=== PATIENT | female | born 1995 | race Asian ===

== ENCOUNTER 2020-05-26 19:37 | Emergency (ER) | payer OTHER, SELFPAY ==
--- NOTE | ~2020-05-26 | XR_ITS ---
EXAMINATION: XR ankle LT min 3V DATE: 05/26/2020 19:53 INDICATION: Left ankle pain TECHNIQUE: Anteroposterior, lateral, mortise, and additional oblique view of the ankle were obtained. COMPARISON: 10/09/2014 FINDINGS: There is no fracture, dislocation, or subluxation. The bones and joint spaces are normal. T here is lateral soft tissue swelling of ankle. IMPRESSION: 1. No acute osseous abnormality. Reviewed, dictated and finalized at location A. OR CONTROL ASSISTANT
[2020-05-26 19:45] VITALS: BP 107/67; PULSE 116; RESP 16; TEMP 37.2; O2SAT 99
--- NOTE | 2020-05-26 19:46 | ED.LOWEXIN ---
HPI - Extremity Injury (Lower) General Chief Complaint: Extremity Injury, Lower Stated Complaint: left ankle injury Source: patient and RN notes reviewed Mode of arrival: ambulatory Limitations: no limitations History of Present Illness HPI Narrative: This is a 24-year-old white female that presented to urgent care with pain to her left lateral ankle. According to patient she was walking upstairs and injured her left ankle .patient noted that her ankle inverted while walking upstairs yesterday. Patient did take take ibuprofen, icing site, and elevating site without any relief. Patient left ankle does look swollen with possible hematoma .there is no neurological deficiency, compartment syndrome with pain to the affected ankle, pulses palpable, full range of motion with pain. Patient is able to ambulate on her left lower extremity. Ankle x-ray did not indicate any break Type of Injury: inversion Related Data Home Medications Medication Instructions Recorded Confirmed sertraline 50 mg PO DAILY 06/18/19 05/26/20 Allergies Allergy/AdvReac Type Severity Reaction Status Date / Time No Known Allergies Allergy Verified 05/26/20 19:48 Review of Systems Review of Systems: All systems reviewed & are unremarkable except as noted in HPI and below (10 point system review) [facility] Past Medical History Medical History Alpha-thalassemia Anxiety Gastritis Psoriasis Surgical History Surgical History No history of previous surgery Family History Family History Father Cerebrovascular accident Depression Hypertension Other Family history of arthritis Family history of mental disorder Social History Social History Years smoked: 1 Smoking status: Former smoker Tobacco type: cigarettes Second hand tobacco smoke exposure: Yes Alcohol intake: current Drinks per week: 4 Substance use: never Gender identity (if verbalized by the patient): Female Spiritual care concerns: No Agree to blood products: Yes Exam Narrative: Exam Narrative: GENERAL: This is a well-nourished, well-developed patient, in no apparent distress. HEAD: normocephalic, atraumatic. EYES: PERRL. Sclera clear/white. Vision is grossly intact. EARS: External ears normal, auditory canals clear and without drainage, TMs normal without perforation. Hearing grossly intact. NOSE: External nose normal with no obvious nasal discharge, nares without redness, no rhinorrhea. THROAT: Mucous membranes moist, posterior pharynx clear. NECK: Neck supple, non-tender without lymphadenopathy, masses or thyromegaly. CARDIOVASCULAR: Regular rate and rhythm without murmurs, gallops, or rubs. RESPIRATORY: Clear to auscultation. Breath sounds equal bilaterally. No wheezes, rales, or rhonchi. GASTROINTESTINAL: Abdomen soft, non-tender, nondistended. Bowel sounds are active. No hepato-splenomegaly, or palpable masses. No guarding. SKIN: warm, intact with no suspicious lesions or rash, good texture and turgor. NEURO: awake, alert, and oriented to person, place and time. There were no obvious focal neurologic abnormalities. Steady gait EXTREMITIES: Left lower extremity with full range of motion's with pain with flexion of the. Patient does have a small hematoma to the outer ankle with swelling. Patient able to bear weight to the affected extremity BACK: Nontender without deformity or crepitance. No flank tenderness. Course Course Emergency Course: Ankle x-ray did not indicate a fracture Vital Signs Vital signs: Vital Signs Temperature 98.9 F 05/26/20 19:45 Pulse Rate 116 H 05/26/20 19:45 Respiratory Rate 16 05/26/20 19:45 Blood Pressure 107/67 05/26/20 19:45 Pulse Oximetry 99 05/26/20 19:45 Temperature 98.9 F
== END 2020-05-26 20:08 | disposition home or self-care (01) ==
PROVIDERS: Emergency Provider Nurse Practitioner; PCP Family Medicine
DX: S93.402A Sprain of unspecified ligament of left ankle, initial encounter (principal); S96.912A Strain of unspecified muscle and tendon at ankle and foot level, left foot, initial encounter; X50.9XXA Other and unspecified overexertion or strenuous movements or postures, initial encounter; Z87.891 Personal history of nicotine dependence; F41.9 Anxiety disorder, unspecified
CPT/HCPCS: 73610; 99213; G0463

== ENCOUNTER 2021-02-04 10:47 | Emergency (ER) | payer OTHER, SELFPAY ==
--- NOTE | ~2021-02-04 | CT_ITS ---
EXAMINATION: CT abdomen pelvis w con DATE: 02/04/2021 17:03 INDICATION: Nausea and vomiting. TECHNIQUE: Computed tomography (CT) of the abdomen and pelvis was performed with 100 mL Omnipaque 350 intravenous contrast. Automated exposure control and iterative reconstruction technique were employe d. The dose-length product was 162.34 mGy-cm. COMPARISON: None. FINDINGS: The visualized portions of the lung bases are clear without pneumonia or pleural effusion. The heart size is normal. No pericardial effusion. There is a small sliding hiatal hernia. The liver, gallbladder, spleen, pancreas, adrenal glands, and kidneys are normal. There are no dilated loops of bowel. The appendix is not visualized. There are no pathologically enlarged lymph nodes. There is no free intraperitoneal fluid. There is physiologic fluid in the pelvis. There is thoracolumbar levosco liosis. IMPRESSION: 1. Small sliding hiatal hernia. Reviewed, dictated and finalized at location A.
[2021-02-04 11:16] VITALS: BP 110/77; PULSE 89; RESP 18; TEMP 37.1; O2SAT 99
[2021-02-04] MEDS: LACTATED RINGERS 1,000 ML 999 ML IV CONT (12:24)
[2021-02-04] MEDS: PROMETHAZINE HCL 25 MG/ML AMPUL 12.5 MG IV PUSH ×2 (12:25→17:08)
[2021-02-04] MEDS: SODIUM CHLORIDE 0.9% IV 50 ML 100 ML (12:25)
--- NOTE | 2021-02-04 12:29 | ED.NAVMDI ---
HPI - Nausea/Vomiting/Diarrhea General Chief complaint: Nausea/Vomiting/Diarrhea Stated complaint: vomitting Time Seen by Provider: 02/04/21 11:00 Source: patient, EMS and RN notes reviewed Mode of arrival: ambulatory Limitations: no limitations History of Present Illness HPI Narrative: This is 25 year old female who presents for evaluation of nausea and vomiting. Patient states yesterday evening she developed nausea and vomiting while eating at a buffet. She reports she ate very little earlier that day so she went to a buffet to eat. She developed vomiting while at restaurant. She has continued to have nausea and dry heave throughout the night and today. She suffered something similar over 1 year ago and it was thought to be due to excessive alcohol use. She reports she only drank 1 alcoholic drink last night. She denies abdominal pain, fever or diarrhea. She denies lightheadedness or dizziness. Her LMP was 3 weeks ago. Related Data Allergies Allergy/AdvReac Type Severity Reaction Status Date / Time No Known Allergies Allergy Verified 02/04/21 11:15 Review of Systems Review of Systems: All systems reviewed & are unremarkable except as noted in HPI and below PMFSH Past Medical History Medical History (Updated 02/04/21 @ 18:41 by Ana Lilia Caicedo MD) Alpha-thalassemia Anxiety Gastritis Psoriasis Surgical History Surgical History No history of previous surgery Family History Family History Father Cerebrovascular accident Depression Hypertension Other Family history of arthritis Family history of mental disorder Social History Social History Years smoked: 1 Smoking status: Former smoker Tobacco type: cigarettes Second hand tobacco smoke exposure: Yes Alcohol intake: current Drinks per week: 4 Substance use: never Gender identity (if verbalized by the patient): Female Spiritual care concerns: No Agree to blood products: Yes Exam Const: General: no acute distress and alert Nutritional Appearance: thin Orientation/consciousness: patient oriented x3 Eyes: EOM: EOMs intact bilaterally Resp: Effort & Inspection: normal respiratory effort and no retractions Auscultation: clear to auscultation bilaterally Cardio: Rate: regular rate Rhythm: regular rhythm Heart sounds: no murmurs GI: GI Palp: Yes Soft to palpation, No Tenderness to palpation present (GI) and No Guarding due to palpation present (GI) Auscultation: normal bowel sounds Back/Spine/Pelvis: Back: no CVA tenderness Skin: General skin exam: normal color Rashes: no rashes Neuro: General: patient oriented x3 and moves all extremities Course Reevaluation(s) Reevaluation #1: PAtient has been resting. She has been given 2 L fluid. She feels better and she was able to eat crackers and drink water. Date: 02/04/21 Time: 18:39 Vital Signs Vital signs: Vital Signs Temperature 98.8 F 02/04/21 11:16 Pulse Rate 89 02/04/21 11:16 Respiratory Rate 18 02/04/21 11:16 Blood Pressure 110/77 02/04/21 11:16 Pulse Oximetry 99 02/04/21 11:16 Temperature 98.8 F 02/04/21 11:16 Pulse Rate 102 H 02/04/21 18:31 Respiratory Rate 16 02/04/21 18:31 Blood Pressure 118/74 02/04/21 18:31 Pulse Oximetry 97 02/04/21 18:31 MDM - Nausea/Vomiting/Diarrhea Lab Data Attestation: I reviewed the patient's lab results. Result diagrams: 02/04/21 12:19 02/04/21 12:19 Labs: Lab Results 02/04/21 02/04/21 02/04/21 Range/Units 11:35 12:19 12:19 WBC 13.4 H (4.5-10.0) K/mm3 RBC 5.88 H (4.2-5.4) M/mm3 Hgb 12.1 (12.0-15.0) g/dL Hct 39.9 (37.0-47.0) % MCV 67.9 L (80-100) fl MCH 20.6 L (26-34) pg MCHC 30.3 L (32-36) g/dl RDW 15.4 H (11.5-14.5) % Plt Count
[2021-02-04 12:38] LABS: Alanine Aminotransferase 21 U/L (4-35); Albumin Level 4.9 g/dL (3.5-5.1); Alkaline Phosphatase 66 U/L (38-126); Anion Gap 15 mmol/L (8-16); Aspartate Amino Transferase 32 U/L (14-36); Bilirubin,Total 0.6 mg/dL (0.2-1.3); Blood Urea Nitrogen 11 mg/dL (7-17); Calcium 9.6 mg/dL (8.4-10.2); Carbon Dioxide 23 mmol/L (22-30); Chloride 104 mmol/L (98-107); Estimated CRCL calculation 104 ml/min; Estimated Glomerular Filt Rate > 60; Glucose 118 mg/dL (65-110); Lipase 49 U/L (23-300); Potassium 3.9 mmol/L (3.4-5.0); Sodium 142 mmol/L (137-145)
[2021-02-04 12:44] LABS: Add Urine Microscopic? YES; Appearance Urine Cloudy (Clear); Bilirubin Urine Negative (Negative); Blood Urine Negative (Negative); Color Urine Amber (Yellow); Glucose Urine UA Negative (Negative); Ketones Urine 2+ mg/dL (Negative); Leukocyte Esterase Ur Negative LEU/UL (Negative); Mucus Urine Few /lpf; Nitrate Urine Negative (Negative); Protein Urine 2+ mg/dL (Negative); RBC Urine 0-2 /hpf (0-2); Specific Grav Ur 1.028 (1.001-1.035); Squamous Epithelial Cell Urine Many /hpf (Few); Urobilinogen Urine Negative mg/dL (<2.0); WBC Urine 0-3 /hpf
[2021-02-04 12:44] LABS: Basophils Percent Auto 0.1 % (0.2-1.2); Hematocrit 39.9 % (37.0-47.0); Hemoglobin 12.1 g/dL (12.0-15.0); Immature Granulocyte Absolute 0.08 K/mm3 (0.00-0.031); Immature Granulocyte Percent A 0.6 % (0-0.5); Lymphocytes Absolute Auto 1.62 K/mm3 (0.9-3.2); Lymphocytes Percent Auto 12.1 % (18.3-44.2); Mean Corpuscular HGB Conc 30.3 g/dl (32-36); Mean Corpuscular Hemoglobin 20.6 pg (26-34); Mean Corpuscular Volume 67.9 fl (80-100); Monocytes Absolute Auto 0.3 K/mm3 (0.1-0.6); Monocytes Percent Auto 2.3 % (2.6-8.5); Neutrophils Absolute Auto 11.4 K/mm3 (1.3-6.7); Neutrophils Percent Auto 84.9 % (45.5-73.1); Platelet Count Result 296 k/mm3 (150-375); Red Blood Count 5.88 M/mm3 (4.2-5.4); Red Cell Distribution Width 15.4 % (11.5-14.5); White Blood Count 13.4 K/mm3 (4.5-10.0)
[2021-02-04 13:10] VITALS: BP 116/84; PULSE 88; RESP 17; O2SAT 98
[2021-02-04] MEDS: PROCHLORPERAZINE EDISYLATE 10 MG/2 ML VIAL IV PUSH (15:22)
[2021-02-04 15:30] VITALS: BP 117/83; PULSE 98; RESP 14; O2SAT 97
[2021-02-04 16:42] VITALS: BP 84/58; BP 87/54; PULSE 111; PULSE 98
[2021-02-04 16:43] VITALS: BP 83/67; PULSE 131
[2021-02-04] MEDS: PANTOPRAZOLE SODIUM IV 40 MG VIAL IV PUSH (17:07)
[2021-02-04] MEDS: SODIUM CHLORIDE 0.9% IV 1,000 ML 999 ML IV CONT (17:07)
[2021-02-04 18:31] VITALS: BP 118/74; PULSE 102; RESP 16; O2SAT 97
== END 2021-02-04 19:52 | disposition home or self-care (01) ==
PROVIDERS: Emergency Provider General Practice; PCP Family Medicine
DX: K21.9 Gastro-esophageal reflux disease without esophagitis (principal); Z87.891 Personal history of nicotine dependence
CPT/HCPCS: 36415; 74177; 80053; 81001; 81025; 83690; 85025; 96361; 96374; 96375; 99284; C9113; J0780; J2550; J7030; J7120; Q9967

== ENCOUNTER 2021-09-28 10:46 | Outpatient (CLI) | payer OTHER, SELFPAY ==
--- NOTE | ~2021-09-28 | US_ITS ---
EXAMINATION: US thyroid EXAM DATE: 09/28/2021 11:11 INDICATION: Pain in throat. TECHNIQUE: Multiple grayscale and Doppler images of the thyroid were obtained (by a technologist who performed the scan) and subsequently reviewed. Individual nodules and recommendations may be reporte d in accordance with TI-RADS system as designated by the 2017 ACR White Paper TI-RADS committee. The re is no prior study for comparison. FINDINGS: The right thyroid lobe measures 4.5 x 1.4 x 1.6 cm, the left measuring 4.2 x 1.3 x 1.7 cm. Dimensions are within normal size limits. There is homogeneous thyroid echogenicity. No focal thyroid nodule id entified. IMPRESSION: 1. Unremarkable thyroid ultrasound exam. Reviewed, dictated and finalized at location B.
== END 2021-09-28 10:47 | disposition home or self-care (01) ==
LOC: ANHIMG 10:47
PROVIDERS: PCP Family Medicine; Visit Provider Physician Assistant
DX: R07.0 Pain in throat (principal)
CPT/HCPCS: 76536

== ENCOUNTER 2022-03-23 19:59 | Outpatient (CLI) | payer OTHER, SELFPAY ==
--- NOTE | ~2022-03-23 | US_ITS ---
EXAMINATION: US OB <=14 wk fetus w TV DATE: 03/24/2022 07:52 INDICATION: 8 weeks . Gestational dating. TECHNIQUE: Real-time transabdominal and transvaginal obstetric ultrasound. FINDINGS: No prior studies for comparison. The uterus measures 8.8 x 4.5 x 4.7 cm. There is an intrauterine gestational sac, with pole misha ntified. The crown rump length measures 0.57 cm, which correlates with a estimated gestational age o f 6 weeks 2 days. There is a small subchorionic hemorrhage measuring 9 mm maximum dimension. he art tones are identified measuring 122 BPM. There is a right corpus luteal cyst measuring 2.4 cm. The left ovary is unremarkable. IMPRESSION: 1. SL IUP with an EGA of 6 weeks, 2 days (EDC by current ultrasound of 11/15/2022). 2: Small subchorionic hemorrhage. 3: Right ovarian corpus luteal cyst measuring 2.4 cm. Reviewed, dictated and finalized at location A. IMPRESSION: 1. SL IUP with an EGA of 6 weeks, 2 days (EDC by current ultrasound of 11/16/19). 2: Small subchorionic hemorrhage. 3: Right ovarian corpus luteal cyst measuring 2.4 cm.
[2022-03-23 20:04] VITALS: BP 134/77; PULSE 119; RESP 16; TEMP 37; O2SAT 100
--- NOTE | 2022-03-23 20:11 | ED.NAVMDI ---
HPI - Nausea/Vomiting/Diarrhea General Chief complaint: Nausea/Vomiting/Diarrhea Stated complaint: motion sickness, vomiting since last Saturday, 8 wks Time Seen by Provider: 03/23/22 20:08 Source: patient Mode of arrival: ambulatory Limitations: no limitations History of Present Illness HPI Narrative: Patient is a 26-year-old female who presents the ED with report of nausea and vomiting. Patient is G1, P0 and currently approximately 8 weeks gestation. She states she just found out last week she was . She is scheduled to see Dr. Argueta on the . She developed nausea and vomiting after riding in the car and feeling motion sickness on Saturday. She has since had persistent nausea and vomiting. It has gotten to the point where she is unable to keep anything down, which prompted her presentation. Patient did have 1 episode of diarrhea yesterday. Denies any blood in vomit or stool. Denies vaginal bleeding. Denies abdominal pain. Denies fevers, urinary symptoms. Related Data Home Medications Medication Instructions Recorded Confirmed famotidine 20 mg tablet 20 mg PO BID 10/26/21 10/26/21 propranolol 10 mg tablet 10 mg PO Q12H 10/26/21 10/26/21 quetiapine 50 mg tablet 50 mg PO BID 10/26/21 10/26/21 sertraline 100 mg tablet 100 mg PO DAILY 10/26/21 10/26/21 Allergies Allergy/AdvReac Type Severity Reaction Status Date / Time No Known Allergies Allergy Verified 10/26/21 13:06 Review of Systems Review of Systems: CONSTITUTIONAL: Denies fever, chills, or sweats. CARDIOVASCULAR: Denies chest pain. RESPIRATORY: Denies dyspnea. GASTROINTESTINAL: Reports N/V/D. Denies abdominal pain, rectal bleeding, hematemesis. GENITOURINARY: Denies vaginal bleeding, dysuria or hematuria. MUSCULOSKELETAL: Denies back pain. All systems reviewed & are unremarkable except as noted in HPI and below PMFSH Past Medical History Medical History (Updated 03/24/22 @ 00:19 by Keisha Sanchez PA-C) Alpha-thalassemia Anxiety Gastritis Psoriasis Surgical History Surgical History No history of previous surgery Family History Family History Father Cerebrovascular accident Depression Hypertension Other Family history of arthritis Family history of mental disorder Social History Social History Years smoked: 1 Smoking status: Current some day smoker Tobacco type: cigarettes Second hand tobacco smoke exposure: Yes Alcohol intake: current Drinks per week: 4 Substance use: never Gender identity (if verbalized by the patient): Female Spiritual care concerns: No Agree to blood products: Yes Exam Narrative: GENERAL: Well appearing, thin, non-toxic, in no acute distress. HEAD: Normocephalic, atraumatic. ENT: Pharynx clear, MM slightly dry. NECK: Supple. No adenopathy, no masses. RESPIRATORY: Airway patent, respirations nonlabored. Clear to auscultation bilaterally, no rales, rhonchi, wheezing. CARDIOVASCULAR: Tachycardic with regular rhythm without murmurs, rubs, or gallops. Peripheral pulses 2+ and equal bilaterally. ABDOMINAL: Soft, no tenderness to palpation throughout abdomen, nondistended, no hepatosplenomegaly. Normoactive BS. MUSCULOSKELETAL: Moves all extremities. Strength/ROM intact without gross deformities. SKIN: Warm, dry, normal color. No rashes. NEURO: A&O X3. Speech clear. Cranial nerves II-XII grossly intact. Steady gait. No ataxic movements. PSYCHIATRIC: Appropriate mood and affect. Normal interaction. Course Consultations Consultation #1: Discussed case with Dr. Argueta OBGYN, will obtain obstetric US tomorrow am. Patient to follow in office. Date: 03/24/22 Time: 00:34 Vital Signs Vital signs: Vital Signs Temperature 98.6 F 03/23/22 20:04 Pulse Rate 119 H 03/23/22 20:04 Respiratory Rate 16
[2022-03-23] MEDS: SODIUM CHLORIDE 0.9% IV 1,000 ML 999 ML IV CONT (22:06)
[2022-03-23] MEDS: ONDANSETRON INJ 4 MG/2 ML VIAL IV PUSH (22:08)
[2022-03-23 22:10] LABS: Basophils Percent Auto 0.3 % (0.2-1.2); Eosinophils Absolute Auto 0.2 K/mm3 (0-0.3); Hematocrit 36.5 % (37.0-47.0); Hemoglobin 11.4 g/dL (12.0-15.0); Immature Granulocyte Absolute 0.07 K/mm3 (0.00-0.031); Immature Granulocyte Percent A 0.4 % (0-0.5); Lymphocytes Absolute Auto 2.37 K/mm3 (0.9-3.2); Lymphocytes Percent Auto 15.2 % (18.3-44.2); Mean Corpuscular HGB Conc 31.2 g/dl (32-36); Mean Corpuscular Hemoglobin 20.9 pg (26-34); Mean Platelet Volume 9.7 fl (7.4-10.4); Monocytes Absolute Auto 1.2 K/mm3 (0.1-0.6); Monocytes Percent Auto 7.6 % (2.6-8.5); Neutrophils Absolute Auto 11.8 K/mm3 (1.3-6.7); Neutrophils Percent Auto 75.5 % (45.5-73.1); Platelet Count Result 287 k/mm3 (150-375); Red Blood Count 5.45 M/mm3 (4.2-5.4); Red Cell Distribution Width 14.8 % (11.5-14.5); White Blood Count 15.6 K/mm3 (4.5-10.0)
[2022-03-23 22:16] LABS: Add Urine Microscopic? YES; Appearance Urine Cloudy (Clear); Bacteria Urine Trace /hpf; Bilirubin Urine Negative (Negative); Blood Urine Negative (Negative); Color Urine Yellow (Yellow); Glucose Urine UA Negative (Negative); Ketones Urine 1+ mg/dL (Negative); Leukocyte Esterase Ur Negative LEU/UL (Negative); Mucus Urine Heavy /lpf; Nitrate Urine Negative (Negative); Protein Urine Negative (Negative); Squamous Epithelial Cell Urine Many /hpf (Few); Urobilinogen Urine Negative mg/dL (<2.0); WBC Urine 0-3 /hpf
[2022-03-23 22:21] LABS: Alanine Aminotransferase 13 U/L (6-35); Alkaline Phosphatase 45 U/L (38-126); Anion Gap 7 mmol/L (8-16); Aspartate Amino Transferase 29 U/L (14-36); Bilirubin,Total 0.6 mg/dL (0.2-1.3); Blood Urea Nitrogen 7 mg/dL (7-17); Calcium 8.6 mg/dL (8.4-10.2); Carbon Dioxide 25 mmol/L (22-30); Chloride 103 mmol/L (98-107); Estimated CRCL calculation 115 ml/min; Estimated Glomerular Filt Rate > 60; Glucose 83 mg/dL (65-110); Lipase 33 U/L (23-300); Potassium 3.6 mmol/L (3.4-5.0); Sodium 135 mmol/L (137-145)
[2022-03-23 22:29] LABS: Hypochromasia 2+ (NORMAL); Microcytosis 1+ (NORMAL); Schistocytes None Seen (NORMAL)
[2022-03-23 23:07] LABS: Platelet Estimate Adequate (Adequate)
[2022-03-23] MEDS: PROMETHAZINE HCL 25 MG/ML AMPUL 12.5 MG IV PUSH (23:44)
[2022-03-23] MEDS: SODIUM CHLORIDE 0.9% IV 100 ML 500 ML (23:48)
[2022-03-24 01:15] VITALS: BP 100/68; PULSE 86; RESP 18; O2SAT 100
== END 2022-03-24 07:12 | disposition home or self-care (01) ==
LOC: ANHED 03-24 00:26 → ANHIMG 03-24 07:12
PROVIDERS: Emergency Provider Family Medicine; PCP Physician Assistant; Visit Provider Physician Assistant
DX: O46.91 Antepartum hemorrhage, unspecified, first trimester (principal); Z3A.01 Less than 8 weeks gestation of pregnancy; N83.201 Unspecified ovarian cyst, right side
CPT/HCPCS: 36415; 76801; 76817; 80053; 81001; 83690; 84702; 85025; J2405; J2550; J7030

== ENCOUNTER 2022-05-16 15:19 | Outpatient (CLI) | payer OTHER, SELFPAY ==
--- NOTE | ~2022-05-16 | US_ITS ---
EXAMINATION: US OB <= 14 weeks fetus DATE: 05/16/2022 16:32 INDICATION: Follow-up subchorionic hematoma TECHNIQUE: Real-time transabdominal obstetric ultrasound. FINDINGS: 03/24/2022 The uterus measures 9 x 7 x 9 mm. There is an intrauterine gestational sac, with pole identifie d. The crown rump length measures 7.44 cm. heart tones are identified measuring 156 BPM. No ev idence for subchorionic hemorrhage. IMPRESSION: 1. SL IUP with an EGA of 13 weeks, 6 days (EDC by current ultrasound of 11/15/2022), by initial ultra sound. 2: Interval resolution of subchorionic hemorrhage. Reviewed, dictated and finalized at location A. STANT FACILITY MANAGER IMPRESSION: 1. SL IUP with an EGA of 13 weeks, 6 days (EDC by current ultrasound of 023), by initial ultrasound. 2: Interval resolution of subchorionic hemorrhage.
== END 2022-05-16 15:20 | disposition home or self-care (01) ==
PROVIDERS: PCP Physician Assistant; Visit Provider Obstetrics & Gynecology Gynecology
DX: O36.8910 Maternal care for other specified fetal problems, first trimester, not applicable or unspecified (principal); Z3A.13 13 weeks gestation of pregnancy
CPT/HCPCS: 76801

== ENCOUNTER 2022-06-19 17:33 | Outpatient (CLI) | payer OTHER, SELFPAY ==
--- NOTE | ~2022-06-19 | US_ITS ---
EXAMINATION: US OB /maternal detail DATE: 06/19/2022 18:40 INDICATION: anatomic survey. TECHNIQUE: Real-time ultrasound of the pelvis was performed. COMPARISON: Ultrasound 05/16/2022, 03/24/2022 FINDINGS: There is a single living fetus in breech presentation. The placenta is anterior, 2.2 cm from the cer vix. heart rate is 157 beats per minute (bpm). The amniotic fluid volume is subjectively normal . The cervical length is normal on transabdominal images. The following biometric data were obtained: Biparietal diameter (BPD): 4.2 cm; head circumference (HC): 15.9 cm; abdominal circumference (AC): 13 .9 cm; femur length (FL): 2.9 cm. These measurements are concordant. Estimated weight is 269 g +/- 40 g, which correlates with the 64th percentile when 11/15/22 is us ed as estimated date of delivery. As single measurements, these parameters are each equal to the following estimated gestational ages: BPD: 18 weeks 4 days. HC: 18 weeks 5 days. AC: 19 weeks 2 days. FL: 18 weeks 5 days. estimated gestational age based solely on measurements from this exam is 18 weeks 6 days +/- 1 weeks 2 days. The cerebral ventricles, cerebellum, cisterna magna, nuchal fold, lip, and visualized portions of the spine are normal. The heart is normal. The extremities, diaphragm, stomach, kidneys, and bladder are normal. There are two umbilical arteries to yield a 3-vessel cord. The cord insertion is normal. IMPRESSION: 1. Single living fetus in breech presentation. 2. Estimated weight is 269 g +/- 40 g, which correlates with the 64th percentile when 11/15/22 i s used as estimated date of delivery. This date was set by ultrasound on 03/24/2022. 3. Normal anatomic survey. Reviewed, dictated and finalized at location A. EL CASHIER IMPRESSION: 1. Single living fetus in breech presentation. 2. Estimated weight is 269 g +/- 40 g, which correlates with the 64th pe rcentile when 11/15/22 is used as estimated date of delivery. This date was set b y ultrasound on 03/24/2022. 3. Normal anatomic survey.
== END 2022-06-19 17:34 | disposition home or self-care (01) ==
PROVIDERS: PCP Physician Assistant; Visit Provider Advanced Practice Midwife
DX: Z36.9 Encounter for antenatal screening, unspecified (principal); Z3A.18 18 weeks gestation of pregnancy
CPT/HCPCS: 76805

== ENCOUNTER 2022-08-09 13:09 | Outpatient (CLI) | payer OTHER, SELFPAY ==
--- NOTE | ~2022-08-09 | US_ITS ---
EXAMINATION: US OB follow up DATE: 08/09/2022 13:57 INDICATION: Low-lying placenta without hemorrhage during second trimester . TECHNIQUE: Real-time ultrasound of the pelvis was performed. The interpreting radiologist was not pre sent for the study. COMPARISON: 06/19/2022 FINDINGS: There is a single living fetus in vertex presentation. The placenta is anterior and not low-lying wi th caudal margin 9.3 cm from the internal cervical os. heart rate is 153 beats per minute (bpm) . The amniotic fluid index is 16.8 cm, which is normal (5th%-95%: 9.7-22.3 cm at 26 weeks estimated gestational age). The following biometric data were obtained: BPD: 6.6 cm -> 26 weeks 5 days Head circumference: 24.8 cm -> 26 weeks 6 days Abdominal circumference: 21.6 cm -> 26 weeks 1 days Femur length: 4.9 cm -> 26 weeks 4 days These measurements are concordant. Head circumference to abdominal circumference ratio: 1.15 (normal range 1.05-1.22). Estimated weight: 931 g (+/-) 140 g or 2 lbs. 1 oz. (+/-) 5 oz. IMPRESSION: 1. Single living fetus in vertex presentation with heart rate of 153 bpm. 2. Normal anterior placenta with caudal margin 9.3 cm from the internal cervical os. 3. amniotic fluid index of 16.8 cm. 4. Estimated weight is 56th percentile by Hadlock criteria when is used as the estimated date o f delivery (VINICIO). Please correlate with clinical information or earlier ultrasounds for most accurate VINICIO. Reviewed, dictated and finalized at location A. RNATIONAL LOGISTICS COORDINATOR IMPRESSION: 1. Single living fetus in vertex presentation with heart rate of 153 bpm. 2. Normal anterior placenta with caudal margin 9.3 cm from the internal cervica l os. 3. amniotic fluid index of 16.8 cm. 4. Estimated weight is 56th percentile by Hadlock criteria when is used a s the estimated date of delivery (VINICIO). Please correlate with clinical informat ion or earlier ultrasounds for most accurate VINICIO.
== END 2022-08-09 13:10 | disposition home or self-care (01) ==
LOC: ANHIMG 13:11
PROVIDERS: PCP Physician Assistant; Visit Provider Advanced Practice Midwife
DX: O44.42 Low lying placenta NOS or without hemorrhage, second trimester (principal); Z3A.00 Weeks of gestation of pregnancy not specified
CPT/HCPCS: 76816

== ENCOUNTER 2022-10-22 15:28 | Outpatient (CLI) | payer BC, OTHER, SELFPAY ==
[2022-10-22] VITALS (8 sets, daily range): BP systolic 109–131; BP diastolic 66–84; PULSE 77–98
[2022-10-22 16:20] LABS: Basophils Percent Auto 0.3 % (0.2-1.2); Eosinophils Absolute Auto 0.2 K/mm3 (0-0.3); Eosinophils Percent Auto 1.8 % (0-4.4); Hematocrit 33.1 % (37.0-47.0); Hemoglobin 10.1 g/dL (12.0-15.0); Immature Granulocyte Absolute 0.06 K/mm3 (0.00-0.031); Immature Granulocyte Percent A 0.5 % (0-0.5); Immature Platelet Fraction Pct 10.1 % (0.9-11.2); Lymphocytes Absolute Auto 1.97 K/mm3 (0.9-3.2); Lymphocytes Percent Auto 17.4 % (18.3-44.2); Mean Corpuscular HGB Conc 30.5 g/dl (32-36); Mean Corpuscular Hemoglobin 20.7 pg (26-34); Mean Platelet Volume 11.7 fl (7.4-10.4); Monocytes Absolute Auto 0.9 K/mm3 (0.1-0.6); Monocytes Percent Auto 7.7 % (2.6-8.5); Neutrophils Absolute Auto 8.2 K/mm3 (1.3-6.7); Neutrophils Percent Auto 72.3 % (45.5-73.1); Platelet Count Result 233 k/mm3 (150-375); Red Blood Count 4.87 M/mm3 (4.2-5.4); Red Cell Distribution Width 17.2 % (11.5-14.5); White Blood Count 11.3 K/mm3 (4.5-10.0)
[2022-10-22 16:25] LABS: Appearance Urine Cloudy (Clear); Bacteria Urine 1+ /hpf; Bilirubin Urine Negative (Negative); Blood Urine Negative (Negative); Color Urine Yellow (Yellow); Glucose Urine UA Negative (Negative); Ketones Urine Negative (Negative); Leukocyte Esterase Ur Trace LEU/UL (NEGATIVE); Nitrate Urine Negative (Negative); Non Pathogenic Casts 0-2; Protein Urine Negative (Negative); RBC Urine 0-2 /hpf (0-2); Specific Grav Ur 1.013 (1.001-1.035); Squamous Epithelial Cell Urine Many /hpf (Few); pH Urine 7.5 (5.0-9.0)
[2022-10-22 16:29] LABS: Alanine Aminotransferase 17 U/L (6-35); Albumin Level 3.4 g/dL (3.5-5.1); Alkaline Phosphatase 178 U/L (38-126); Anion Gap 6 mmol/L (8-16); Aspartate Amino Transferase 25 U/L (14-36); Bilirubin,Total 0.6 mg/dL (0.2-1.3); Blood Urea Nitrogen 6 mg/dL (7-17); Calcium 8.7 mg/dL (8.4-10.2); Carbon Dioxide 23 mmol/L (22-30); Chloride 104 mmol/L (98-107); Estimated Glomerular Filt Rate > 60; Glucose 76 mg/dL (65-110); Potassium 3.7 mmol/L (3.4-5.0); Sodium 133 mmol/L (137-145); Uric Acid 4.2 mg/dL (2.5-7.5)
[2022-10-22 16:34] LABS: Add Urine Microscopic? YES
[2022-10-22 16:47] LABS: Platelet Estimate Adequate (Adequate)
[2022-10-22 16:48] LABS: Schistocytes None Seen (NORMAL)
[2022-10-22 16:50] LABS: Hypochromasia 1+ (NORMAL)
[2022-10-22 16:51] LABS: Anisocytosis 2+ (NORMAL)
[2022-10-22 16:56] LABS: Creatinine Urine 59.9 mg/dL; Total Protein Urine Random 10 mg/dL; Ur Ttl Prot Creatinine Ratio 0.17 mg/mg (0-0.20)
--- NOTE | 2022-10-22 17:10 | PC.NURSE ---
1530: Pt complained of swelling in hands and feet, with pain in her right breast that comes and goes, as well as a headache that has started today that is coming and going. Pt stated she felt great yesterday and was power-washing her house yesterday. Pt currently has a headache but does not feel any contractions or right sided pain at this time. 1545: RN examined pt, no swelling apparent on hand, feet, or legs. 1700: RN asked pt if she is feeling any contractions. Pt stated she is not feeling any contractions. 170: CNM Jeannine Olivo was contacted via cell phone. RN informed CNM of pt's complaints, RN's observation of pt, VS, FHT, lab results, and urine results. Orders to instruct patient to eat more iron rich food, and offer patient a Fioricet for her headache before she leaves. Orders to discharge patient home after Fioricet (if needed) with instructions to return to office for a prescription if needed.
[2022-10-22] MEDS: ACETAMINOPHEN/BUTALBITAL/CAFFEINE 325-50-40 MG TABLET (FIORICET) 1 TAB PO (17:26)
== END 2022-10-22 17:31 | disposition home or self-care (01) ==
LOC: ANHOBOP 15:42 → ANHOBPP 15:44
PROVIDERS: Advanced Practice Midwife; PCP Physician Assistant; Visit Provider Obstetrics & Gynecology Gynecology
DX: O13.9 Gestational [pregnancy-induced] hypertension without significant proteinuria, unspecified trimester (principal); Z3A.00 Weeks of gestation of pregnancy not specified
CPT/HCPCS: 36415; 59025; 80053; 81001; 82570; 84156; 84550; 85025; 85055; 87086; 99199; A9270

== ENCOUNTER 2022-11-07 16:57 | Inpatient (IN) | payer OTHER, SELFPAY ==
[2022-11-07] VITALS (9 sets, daily range): BP systolic 93–127; BP diastolic 65–79; PULSE 91–116; TEMP 37.1–37.4; O2SAT 99; BMI 25.7
--- NOTE | 2022-11-07 17:15 | PC.NURSE ---
Lady Olivo CNM here and talking with pt. WHEELER would like a Alpha Thalasemia DNA test added to demise order set. Called lab for them to tell me how to order and what tube to draw.
--- NOTE | 2022-11-07 18:03 | P.PNAN_ITS ---
Anes - Initial Pre Proc Eval Procedure: Labor epidural Date/Time: 11/07/22 18:03 Surgeon: Shaista Argueta MD Pre Op Diagnosis: Abdominal pain with contractions Pre Op Diagnosis: IUFD Patient Data Age: 26 Gender: F Height: Weight: Allergies Allergy/AdvReac Type Severity Reaction Status Date / Time adhesive tape Allergy Redness of Verified 10/17/22 12:54 Skin Home Medications Medication Instructions Recorded Confirmed Type famotidine 20 mg tablet 20 mg PO BID 10/26/21 10/26/21 History quetiapine 50 mg tablet 50 mg PO BID 10/26/21 10/26/21 History promethazine 12.5 mg tablet 12.5 mg PO Q6H PRN nausea and 03/24/22 Rx vomiting #20 tabs escitalopram oxalate 20 mg tablet 20 mg PO DAILY 10/17/22 10/17/22 History (Lexapro) prenat.vits,sajan,tqy-qexj-xrybu 1 tablet PO DAILY 10/17/22 10/17/22 History : gestational age HCG: positive Patient hx anesthesia problems: none Family hx anesthesia problems: none Results Review: All pre-operative results and documents have been reviewed as part of the pre- operative evaluation. [facility] Past Medical History Medical History Alpha-thalassemia Anxiety Anxiety and depression Eczema Gastritis IBS (irritable bowel syndrome) IUFD (intrauterine ) Lumbago and not yet delivered Psoriasiform dermatitis Psoriasis Surgical History Surgical History No history of previous surgery Family History Family History Father Cerebrovascular accident Depression Hypertension Other Family history of arthritis Family history of mental disorder Social History Social History Years smoked: 1 Smoking status: Current some day smoker Tobacco type: cigarettes Second hand tobacco smoke exposure: Yes Alcohol intake: current Drinks per week: 4 Substance use: never Gender identity (if verbalized by the patient): Female Spiritual care concerns: No Agree to blood products: Yes Anes - Eval Final PreProcedure Day of Procedure 11/07/22 18:03 Patient weight: overweight Airway: Mallampati scale class II ASA classification: III Emergent: no Anesthetic plan: proceed Results Review: All pre-operative results and documents have been reviewed as part of the pre- operative evaluation. Informed Consent: The patient's anesthetic plan and its attendant risks and benefits were discussed with the patient/family/POA. Questions were solicited and answers pro vided to the satisfaction of the patient/family/POA.
--- NOTE | 2022-11-07 18:15 | WPDOBADMIT ---
Obstetrics - Admit Note Admission Note: record reviewed. No pertinent additions to the history and/or any subsequent changes in the physical findings that are not consistent with the expected course of the were found. Additions to the history and/or subsequent changes in the physical findings follow. IUFD at 38 weeks 5 days.
--- NOTE | 2022-11-07 18:15 | PM.IMHP ---
H&P: HPI History of Present Illness Date/Time: 11/07/22 1745 Chief Complaint: IUFD at term Review of Systems Review of Systems: Feeling occasional cramping but no regular, painful contractions. Reports not feeling movement today or yesterday (11/06/22). Denies trauma, bleeding, or leaking. Tearful at times. All systems reviewed & are unremarkable except as noted in HPI and below PMFSH Past Medical History Medical History (Updated 11/07/22 @ 18:21 by Jeannine Olivo CNM) Alpha-thalassemia Anxiety Anxiety and depression Eczema Gastritis IBS (irritable bowel syndrome) IUFD (intrauterine ) Lumbago and not yet delivered Psoriasiform dermatitis Psoriasis Surgical History Surgical History No history of previous surgery Family History Family History Father Cerebrovascular accident Depression Hypertension Other Family history of arthritis Family history of mental disorder Social History Social History Years smoked: 1 Smoking status: Current some day smoker Tobacco type: cigarettes Second hand tobacco smoke exposure: Yes Alcohol intake: current Drinks per week: 4 Substance use: never Gender identity (if verbalized by the patient): Female Spiritual care concerns: No Agree to blood products: Yes Meds Home Medications and Allergies Home Medications Medication Instructions Recorded Confirmed Type famotidine 20 mg tablet 20 mg PO BID 10/26/21 10/26/21 History quetiapine 50 mg tablet 50 mg PO BID 10/26/21 10/26/21 History promethazine 12.5 mg tablet 12.5 mg PO Q6H PRN nausea and 03/24/22 Rx vomiting #20 tabs escitalopram oxalate 20 mg tablet 20 mg PO DAILY 10/17/22 10/17/22 History (Lexapro) prenat.vits,sajan,kht-[id number] 1 tablet PO DAILY 10/17/22 10/17/22 History Allergies Allergy/AdvReac Type Severity Reaction Status Date / Time adhesive tape Allergy Redness of Verified 10/17/22 12:54 Skin Exam Const: General: comfortable and no acute distress Eyes: General: appearance normal, both eyes and all related structures Resp: Effort & Inspection: normal respiratory effort GI: GI Palp: Yes Soft to palpation : External Female Exam: normal external appearance Skin: General skin exam: normal color and no rashes or lesions noted Neuro: General: gait normal Speech: normal speech Sensory Exam: normal sensation Extrem: General: normal to inspection Psych: Mental Status: mental status grossly normal Affect: normal affect and Sad affect present (appropriate for situation) Assessment and Plan Assessment and plan (1) IUFD at 20 weeks or more of gestation: Code(s): O36.4XX0 - Maternal care for intrauterine , not applicable or unspecified Status: Acute (2) Hemorrhoids during : Qualifiers: Trimester: third trimester Qualified Code(s): O22.43 - Hemorrhoids in , third trimester Code(s): O22.40 - Hemorrhoids in , unspecified trimester Status: Acute (3) Alpha-thalassemia: Code(s): D56.0 - Alpha thalassemia Status: Acute Assessment and Plan: Reports testing as a child after arm fracture. Unsure of exact type but was told not Major (4) Anxiety and depression: Code(s): F41.9 - Anxiety disorder, unspecified; F32.A - Depression, unspecified Status: Acute Plan 1. 26 y.o. G1PO at 38 weeks 5 days 2. IUFD -plan induction of labor with cytotec 3. Anxiety and Depression -on Seroquel and Lexapro. mood has been stable. Coping/grief observed 4. Marijuana use in 5. Hemorrhoids 6. Alpha Thalasemia -hemoglobin electrophoresis WNL in . Plan to send Alpha Thalasemia DNA testing (test confirmed with lab-send out)
--- NOTE | 2022-11-07 18:30 | PC.NURSE ---
Orders for SL cytotec at 2200 and 0000. Orders that I do not have to check patient cervix prior to cytotec administration. Orders 4 hours after 0000 cytotec to start low dose pitocin.
--- NOTE | 2022-11-07 18:56 | LDADM ---
This patient, Celia Durbin, was admitted to Labor/Delivery/Recovery 110 on 11/07/22 at 16:57. Plans for labor, pain management and were discussed with patient. Patient/family oriented to hospital policies and general routines including ID bracelet, bed and alarms, visiting hours, pain management, procedures, bathroom and other care routines, personal items, smoking policy, room service/diet and guest tray routines, infant security routines, and visiting hours. Patient/Family are encouraged to report perceived risks to care and to ask questions if they do not understand what they are told or what they should do. See OBIX for further documentation.
[2022-11-07 18:59] LABS: Basophils Percent Auto 0.3 % (0.2-1.2); Eosinophils Absolute Auto 0.1 K/mm3 (0-0.3); Eosinophils Percent Auto 0.7 % (0-4.4); Hemoglobin 10.5 g/dL (12.0-15.0); Immature Granulocyte Percent A 0.7 % (0-0.5); Immature Platelet Fraction Pct 11.8 % (0.9-11.2); Lymphocytes Absolute Auto 1.99 K/mm3 (0.9-3.2); Lymphocytes Percent Auto 14.4 % (18.3-44.2); Mean Corpuscular HGB Conc 30.9 g/dl (32-36); Mean Corpuscular Hemoglobin 20.4 pg (26-34); Mean Corpuscular Volume 66.1 fl (80-100); Monocytes Absolute Auto 0.9 K/mm3 (0.1-0.6); Monocytes Percent Auto 6.3 % (2.6-8.5); Neutrophils Absolute Auto 10.7 K/mm3 (1.3-6.7); Neutrophils Percent Auto 77.6 % (45.5-73.1); Platelet Count Result 242 k/mm3 (150-375); Red Blood Count 5.14 M/mm3 (4.2-5.4); Red Cell Distribution Width 17.9 % (11.5-14.5); White Blood Count 13.8 K/mm3 (4.5-10.0)
[2022-11-07 19:05] LABS: Alanine Aminotransferase 21 U/L (6-35); Albumin Level 3.8 g/dL (3.5-5.1); Alkaline Phosphatase 233 U/L (38-126); Anion Gap 8 mmol/L (8-16); Aspartate Amino Transferase 33 U/L (14-36); Bilirubin,Total 0.5 mg/dL (0.2-1.3); Blood Urea Nitrogen 8 mg/dL (7-17); Carbon Dioxide 22 mmol/L (22-30); Chloride 103 mmol/L (98-107); Estimated Glomerular Filt Rate > 60; Glucose 100 mg/dL (65-110); Potassium 3.6 mmol/L (3.4-5.0); Sodium 133 mmol/L (137-145)
[2022-11-07 19:22] LABS: Hypochromasia 1+ (NORMAL); Platelet Estimate Adequate (Adequate); Schistocytes None Seen (NORMAL)
[2022-11-07 19:23] LABS: Anisocytosis 3+ (NORMAL)
[2022-11-07] MEDS: CALCIUM CARBONATE (TUMS) 500 MG (200 MG ELEMENTAL) PO (19:41)
[2022-11-07 19:42] LABS: Free T4 Free Thyroxine 0.76 ng/mL (0.78-2.19)
[2022-11-07] MEDS: diazePAM (*CRX) 2 MG TABLET PO (20:33)
[2022-11-07] MEDS: miSOPROStol 25 MCG TABLET SUBLINGUAL (20:33)
[2022-11-07 20:45] LABS: Amphetamine Screen Urine Negative (Negative); Barbiturate Screen Urine Negative (Negative); Benzodiazepines Screen Urine Negative (Negative); Cannabinoid Screen Urine Positive (Negative); Cocaine Screen Urine Negative (Negative); Methadone Screen Urine Negative (Negative); Opiate Screen Urine Negative (Negative); Phencyclidine Screen Urine Negative (Negative)
[2022-11-07] MEDS: LACTATED RINGERS 1,000 ML 125 ML IV CONT (23:23)
[2022-11-08] VITALS (91 sets, daily range): BP systolic 83–139; BP diastolic 42–87; PULSE 79–110; RESP 16; TEMP 37–37.7; O2SAT 95–100
[2022-11-08] MEDS: LACTATED RINGERS 1,000 ML 125 ML IV CONT (00:25)
[2022-11-08] MEDS: miSOPROStol 25 MCG TABLET SUBLINGUAL (01:51)
[2022-11-08 08:52] LABS: Rapid Plasma Reagin Non-Reactive (NonReactive)
[2022-11-08] MEDS: OXYTOCIN 30 UNITS/NS 500 ML 30 UNITS/500 ML BAG 999 UNITS IV CONT (09:36)
[2022-11-08] MEDS: OXYTOCIN 30 UNITS/NS 500 ML 30 UNITS/500 ML BAG 125 UNITS IV CONT (10:04)
--- NOTE | 2022-11-08 10:05 | PM.OBPRVD ---
OB - Delivery Note Procedure Delivery date: 11/08/22 Procedure: Induction method: Per Misoprostol Protocol Delivery augmentation: Rupture of Membranes Delivery monitor: External Uterine Route of delivery: Episiotomy description: None Laceration Description: Periurethral (bilateral), Vaginal (2nd degree) and Labial (right external labial, superficial) Delivery repair: vicryl Specimen: Yes Quantitative Blood Loss (ml): 150 Anesthesia type: Epidural Disposition: No change Complications: IUFD at term Narrative: Pt arrived to labor unit on 11/07/22 with reports of no movement x 2 days. Pt induced with cytotec and labor progressed quickly. She was offered amniotomy which was then performed with return of moderate amount of green tinged meconium with some 1-1.5 cm sized pieces of dark green meconium. She then progressed to complete dilation and +2 station. She pushed with contractions and quickly brought the head to a crown. After the delivery of the head, there was good restitution. A double nuchal cord was identified and the anterior and posterior shoulders delivered easily followed by the remainder of the . The was placed on the maternal abdomen and the cord was doubly clamped and cut. The placenta delivered in Dean presentation shortly afterwards. A tight true knot was observed in the cord. The laceration was repaired in the usual fashion. There was excellent hemostasis and all delivery counts were correct. Family present in the delivery room. [place] Baby Date of : 11/08/22 Time of : 09:33 Weeks of gestation at delivery: 38 Infant gender: Female Weight (pounds): 7 Weight (ounces): 5 presentation: compound (left hand to right side of face) position: Left Occiput Anterior Placenta delivery description: Spontaneous Cord Vessel Description: 3 Vessels, Nuchal Cord (x 2), True Knot (very tight) and Clamped/Cut score one minute: 0 score five minutes: 0 score ten minutes: 0
--- NOTE | 2022-11-08 10:22 | PM.OBDSVD ---
DS: Admitting Diagnosis Discharge Date 11/09/22 Admitting Diagnosis 26 y.o at 38 weeks IUFD Anxiety/Depression AlphaThalasemia DS: Discharge Diagnosis Discharge Diagnosis (1) Anxiety and depression: Code(s): F41.9 - Anxiety disorder, unspecified; F32.A - Depression, unspecified Status: Acute (2) Alpha-thalassemia: Code(s): D56.0 - Alpha thalassemia Status: Acute (3) Hemorrhoids during : Qualifiers: Trimester: third trimester Qualified Code(s): O22.43 - Hemorrhoids in , third trimester Code(s): O22.40 - Hemorrhoids in , unspecified trimester Status: Acute (4) IUFD at 20 weeks or more of gestation: Code(s): O36.4XX0 - Maternal care for intrauterine , not applicable or unspecified Status: Acute (5) (normal spontaneous vaginal delivery): Code(s): O80 - Encounter for full-term uncomplicated delivery Status: Acute (6) Grief associated with loss of fetus: Code(s): F43.21 - Adjustment disorder with depressed mood Status: Acute OB - DS: Summary OB Procedures : Ultrasound OB Procedures Intrapartum: Spontaneous Vag Delivery OB Procedures: : None Peripartum Data Infant Delivery Method: Natural Vaginal Laceration Description: Periurethral, Vaginal - 2nd Degree and Superficial Episiotomy description: None complications: none Status at Discharge Functional status at discharge: independent ambulation Overall status at discharge: patient is progressing back to baseline Time Spent with Patient Time attestation: Total time spent providing and/or coordinating discharge services: Exam Narrative: Alert and oriented. Grieving. Urinating without difficulty. Denies passing any large clots. Perineum with minimal edema. Fundus firm and below umbilicus. Const: General: cooperative, healthy appearing, no acute distress and alert Orientation/consciousness: patient oriented x3 Limitations: no limitations Resp: Effort & Inspection: normal respiratory effort Auscultation: clear to auscultation bilaterally Cardio: Rate: regular rate GI: Inspection: normal to inspection Neuro: General: patient oriented x3 Extrem: General: normal to inspection Psych: Appearance: grossly normal Mental Status: mental status grossly normal Affect: normal affect Thought process: Normal thought process present DS: Data Data Completed and Pending Pending studies at discharge: Pending at discharge 11/08/22 07:17 Surgical [PTH] Routine Labs on day of discharge: Labs from last 24 hours 11/07/22 11/07/22 18:39 18:39 WBC 13.8 H RBC 5.14 Hgb 10.5 L Hct 34.0 L MCV 66.1 L MCH 20.4 L MCHC 30.9 L RDW 17.9 H Plt Count 242 MPV TNP Immature Gran % (Auto) 0.7 H Neut % (Auto) 77.6 H Lymph % (Auto) 14.4 L [place] % (Auto) 6.3 Eos % (Auto) 0.7 Baso % (Auto) 0.3 Lymph # (Auto) 1.99 [place] # (Auto) 0.9 H Eos # (Auto) 0.1 Baso # (Auto) 0.0 Abs Immat Gran (auto) 0.10 H Absolute Neuts (auto) 10.7 H Absolute Nucleated RBC 0.0 Nucleated RBC % 0.0 Platelet Estimate Adequate % Immature Plt Fraction 11.8 H Hypochromasia 1+ Anisocytosis 3+ Schistocytes None seen LA PTT Screen Pending dRVVT Screen Pending dRVVT Additional Test Pending Lupus Anticoag Interp Pending Sodium 133 L Potassium 3.6 Chloride 103 Carbon Dioxide 22 Anion Gap 8 BUN 8 Creatinine 0.50 L Estim Creat Clear Calc Not Reportable Estimated GFR > 60 Glucose 100 Cancelled Calcium 9.0 Total Bilirubin 0.5 AST 33 ALT 21 Alkaline Phosphatase 233 H Total Protein 7.0 Albumin 3.8 TSH 2.160 Free T4 0.76 L Urine Opiates Screen Negative Urine Methadone Screen Negative Ur Barbiturates Screen Negative Ur Phencyclidine Scrn Negative Ur Amphetamine Screen Negative U Benzodiazepines Scrn Negative Urine Cocaine Scr
--- NOTE | 2022-11-08 10:59 | PC.NURSE ---
Phone call to payroll assistant's office, report made at this time.
--- NOTE | 2022-11-08 11:14 | PC.NURSE ---
Phone call to [facility], report given, not a candidate and may release body.
[2022-11-08] MEDS: diazePAM (*CRX) 5 MG TABLET PO ×2 (11:31→20:06)
[2022-11-08] MEDS: BENZOCAINE 20% AER SPR (*SP) 56 GM CAN 1 SPRAY TOPICAL (12:27)
[2022-11-08] MEDS: WITCH HAZEL 40 PADS 1 PAD TOPICAL (12:27)
[2022-11-08] MEDS: IBUPROFEN 600 MG TABLET PO ×2 (12:27→21:45)
[2022-11-08] MEDS: ACETAMINOPHEN 325 MG TABLET 650 MG PO (12:27)
--- NOTE | 2022-11-08 19:03 | PC.NURSE ---
Pt resting in room. No needs at this time.
[2022-11-08] MEDS: POLYSACCHARIDE IRON COMPLEX 150 MG CAPSULE PO (20:05)
[2022-11-08] MEDS: TETANUS,DIPHTHERIA,AC PERTUSSIS ADULT (0.5 ML) BOOSTRIX IM (20:06)
[2022-11-08] MEDS: DOCUSATE SODIUM 100 MG CAPSULE PO (20:07)
--- NOTE | 2022-11-08 20:15 | PC.NURSE ---
Pt has no needs at this time. Pt educated on when to call out for nurse including vaginal bleeding.
[2022-11-08] MEDS: FAMOTIDINE 20 MG TABLET PO (21:45)
[2022-11-08] MEDS: QUEtiapine FUMARATE 25 MG TABLET 50 MG PO (22:37)
--- NOTE | 2022-11-08 22:53 | PC.NURSE ---
Pt reports she would like follow up with Share coordinator. Consent signed.
[2022-11-09] VITALS (7 sets, daily range): BP systolic 101–116; BP diastolic 67–84; PULSE 81–97; RESP 16–20; TEMP 36.6; O2SAT 98–99
[2022-11-09 05:06] LABS: Hematocrit 31.3 % (37.0-47.0); Hemoglobin 9.5 g/dL (12.0-15.0)
--- NOTE | 2022-11-09 07:48 | P.PNOB_ITS ---
OB - PN: Subj Subjective Date/time seen: 11/09/22 07:40 Interval history: PPD 1 from of full term IUFD. Boyfriend at bedside, supportive. Affect calm, friendly, and sad at times. Appropriate for situation. Patient comments: no complaints and pain well controlled [place] baby status: stillbirth (at bedside in bassinette/cuddle cot) OB - PN: Obj Data Labs 11/09/22 04:58 11/07/22 18:39 Labs: Laboratory Results - last 24 hr 11/07/22 11/09/22 18:39 04:58 Hgb 9.5 L Hct 31.3 L RPR Non-reactive OB - PN A/P Plan day: 1 Plan: discharge home and follow up 6 weeks Time Spent With Patient Time: Total time spent is greater than 50% in coordination of care (as documented) at patient's floor/unit and/or counseling patient: Review of Systems Review of Systems: All systems reviewed & are unremarkable except as noted in HPI and below Exam Narrative: Alert and oriented. Grieving. Urinating without difficulty. Denies passing any large clots. Perineum with minimal edema. Fundus firm and below umbilicus. Const: General: cooperative, healthy appearing, no acute distress and alert Orientation/consciousness: patient oriented x3 Limitations: no limitations Resp: Effort & Inspection: normal respiratory effort Auscultation: clear to auscultation bilaterally Cardio: Rate: regular rate GI: Inspection: normal to inspection Neuro: General: patient oriented x3 Extrem: General: normal to inspection Psych: Appearance: grossly normal Mental Status: mental status grossly norm al Affect: normal affect Thought process: Normal thought process present
[2022-11-09] MEDS: FAMOTIDINE 20 MG TABLET PO (08:41)
[2022-11-09] MEDS: DOCUSATE SODIUM 100 MG CAPSULE PO (08:42)
[2022-11-09] MEDS: POLYSACCHARIDE IRON COMPLEX 150 MG CAPSULE PO (08:42)
[2022-11-09] MEDS: IBUPROFEN 600 MG TABLET PO (08:42)
[2022-11-09] MEDS: HYDROCORTISONE/PRAMOXINE 2.5% 30 GM CREAM 1 APPLIC RECTAL (08:44)
--- NOTE | 2022-11-09 09:00 | PC.NURSE ---
Momento box given to pt that includes footprints, handprints, keepsakes, sympathy card from care providers. Completed certificate with pt and boyfriend. Pt states her mom is coming back around 1130 this morning and then she will probably be ready to leave around 1230 or 1300.
[2022-11-09] MEDS: ESCITALOPRAM OXALATE 10 MG TABLET 20 MG PO (09:17)
--- NOTE | 2022-11-09 12:00 | PC.NURSE ---
Brando wrap placed around chest to compress breasts.
--- NOTE | 2022-11-09 13:14 | PC.NURSE ---
Reviewed discharge instructions with pt. Discussed grieving and support with pt and boyfriend. lock of hair obtained and placed in momento box. Pt wants to be able to change baby's clothes before she leaves. Pt's lunch here now.
[2022-11-09] MEDS: ACETAMINOPHEN 325 MG TABLET 650 MG PO (14:33)
--- NOTE | 2022-11-09 14:40 | PC.NURSE ---
Assisted pt in changing 's clothes. Pt taking additional pictures of including baby's hand around mom's finger and of baby's feet. Infant swaddled in a blanket. Pt given gown, hat, baby blanket and somali that baby had been wearing. Infant taken from room per pt request.
--- NOTE | 2022-11-09 15:01 | PC.NURSE ---
ID band remains on infant ankle. taken to pathology with autopsy consent, release of body consent, and copy of mom's chart. certificate remains on unit for Dr. Argueta to sign. SHARE form and photo consent placed in SHARE office with copies on chart. Copy of certificate placed on chart.
[2022-11-13 13:06] LABS: CMV IgM Antibody <30.00 AU/mL (<30.00)
[2022-11-13 13:34] LABS: Anti Cardio Antibody IgM 2.9 MPL-U/mL (<20.0); Anti Cardiolipin Antibody IgA <2.0 APL-U/mL (<20.0); Anti Cardiolipin Antibody IgG <2.0 GPL-U/mL (<20.0)
== END 2022-11-09 14:50 | disposition home or self-care (01) | DRG 560 ==
PROVIDERS: Advanced Practice Midwife; Admitting Provider Obstetrics & Gynecology Gynecology; PCP Physician Assistant; Visit Provider Obstetrics & Gynecology Gynecology
DX: O36.4XX0 Maternal care for intrauterine death, not applicable or unspecified (principal); D56.0 Alpha thalassemia; Z37.1 Single stillbirth; Z3A.39 39 weeks gestation of pregnancy; O99.02 Anemia complicating childbirth; O99.344 Other mental disorders complicating childbirth; F32.A Depression, unspecified; F41.9 Anxiety disorder, unspecified; O22.43 Hemorrhoids in pregnancy, third trimester; F12.90 Cannabis use, unspecified, uncomplicated; O70.1 Second degree perineal laceration during delivery; O71.82 Other specified trauma to perineum and vulva; O77.0 Labor and delivery complicated by meconium in amniotic fluid; O32.6XX0 Maternal care for compound presentation, not applicable or unspecified; F43.21 Adjustment disorder with depressed mood
CPT/HCPCS: 36415; 76815; 80053; 80307; 81257; 84439; 84443; 85014; 85018; 85025; 85055; 85613; 85730; 86146; 86147; 86592; 86644; 86645; 86850; 86900; 86901; 88307; 88313; 88341; 88342; 90715; A9270; J2590; J2795; J7120

== ENCOUNTER 2023-04-03 16:49 | Emergency (ER) | payer OTHER, SELFPAY ==
[2023-04-03 17:11] VITALS: BP 110/69; PULSE 99; RESP 16; TEMP 37.2; O2SAT 99
--- NOTE | 2023-04-03 17:37 | ED.GENADULT ---
HPI - General Adult General Chief complaint: Ear Stated complaint: Both Ears Irritation Time Seen by Provider: 04/03/23 17:37 Source: patient, RN notes reviewed and old records reviewed Mode of arrival: ambulatory Limitations: no limitations History of Present Illness HPI narrative: 27-year-old female presents to the [facility] with bilateral ear irritation, left ear fullness at times. Has had intermittent dizziness for the last couple of days Onset (ago): day(s) (3) Related Data Home Medications Medication Instructions Recorded Confirmed famotidine 20 mg tablet 20 mg PO BID 10/26/21 04/03/23 quetiapine 50 mg tablet 50 mg PO BID 10/26/21 04/03/23 sertraline 100 mg tablet mg 04/03/23 Allergies Allergy/AdvReac Type Severity Reaction Status Date / Time adhesive tape Allergy Redness of Verified 04/03/23 17:09 Skin Review of Systems Review of Systems: All systems reviewed & are unremarkable except as noted in HPI and below Constitutional: Constitutional: Reports no additional constitutional complaints Eyes: Eyes: Reports no additional eye complaints ENT: Reports as per HPI Cardiovascular: Cardiovascular: Reports no additional cardiovascular complaints, Denies chest pain and Denies dyspnea Respiratory: Respiratory: Reports no additional respiratory complaints, Denies chest congestion, Denies cough and Denies dyspnea Gastrointestinal: Gastrointestinal: Reports no additional gastrointestinal complaints, Denies abdominal pain, Denies nausea and Denies vomiting Musculoskeletal: Musculoskeletal: Reports no additional musculoskeletal complaints Integumentary/Breasts: Skin/Breast: Reports system reviewed and no additional complaints, except as docu Neurologic: Reports system reviewed and no additional complaints, except as documented Psychiatric: Psychiatric: Reports no additional psychiatric complaints Allergic/Immunologic: Allergic/Immunologic: Reports no additional allergic/immunologic complaints [facility] Past Medical History Medical History (Updated 04/03/23 @ 20:44 by Celine Rubio APRN) Alpha-thalassemia Anxiety Anxiety and depression Eczema Gastritis IBS (irritable bowel syndrome) IUFD (intrauterine ) Lumbago and not yet delivered Psoriasiform dermatitis Psoriasis Surgical History Surgical History No history of previous surgery Family History Family History Father Cerebrovascular accident Depression Hypertension Other Family history of arthritis Family history of mental disorder Social History Social History Years smoked: 1 Smoking status: Current every day smoker Tobacco type: e-cigarettes/vaping Second hand tobacco smoke exposure: Yes Alcohol intake: current Drinks per week: 4 Substance use: never Lack of Transportation: No Lack of Food: Never True Current Housing: I Have Housing Concerned About Future Housing: No Difficulty Paying Gas/Electric Bills: No Difficulty Paying for Meds: No Currently Unemployed: YES Education: Associate Degree Difficulty w/ Childcare or Family Care: No Gender identity (if verbalized by the patient): Female Spiritual care concerns: No Agree to blood products: Yes Comments At the time of my signature, I reviewed and agree with the nursing past medical, surgical, social, and family history. There is no relevant family history pertinent to the patient complaint. Exam Const: General: cooperative, healthy appearing, comfortable, no acute distress, well developed, alert and well nourished Nutritional Appearance: well nourished Orientation/consciousness: patient oriented x3 Limitations: no limitations HENMT: Head: normal to inspection Ears: hearing grossly normal bilaterally, external ears normal, TM normal on the right, Abn
== END 2023-04-03 17:54 | disposition home or self-care (01) ==
PROVIDERS: Emergency Provider Nurse Practitioner; PCP Physician Assistant
DX: H65.02 Acute serous otitis media, left ear (principal); F17.290 Nicotine dependence, other tobacco product, uncomplicated; F41.9 Anxiety disorder, unspecified; F32.A Depression, unspecified; D56.0 Alpha thalassemia
CPT/HCPCS: 99213; G0463

== ENCOUNTER 2023-07-03 14:20 | Inpatient (IN) | payer OTHER, SELFPAY ==
[2023-07-03 14:29] VITALS: BP 132/97; PULSE 125; RESP 20; TEMP 36.9; O2SAT 100
[2023-07-03 14:47] LABS: Basophils Absolute Auto 0.1 K/mm3 (0.0-0.1); Basophils Percent Auto 0.4 % (0.2-1.2); Eosinophils Absolute Auto 0.1 K/mm3 (0-0.3); Eosinophils Percent Auto 0.9 % (0-4.4); Hematocrit 40.6 % (37.0-47.0); Hemoglobin 12.1 g/dL (12.0-15.0); Immature Granulocyte Absolute 0.06 K/mm3 (0.00-0.031); Immature Granulocyte Percent A 0.4 % (0-0.5); Lymphocytes Absolute Auto 2.74 K/mm3 (0.9-3.2); Lymphocytes Percent Auto 19.5 % (18.3-44.2); Mean Corpuscular HGB Conc 29.8 g/dl (32-36); Mean Corpuscular Hemoglobin 20.3 pg (26-34); Mean Corpuscular Volume 68.2 fl (80-100); Mean Platelet Volume 10.9 fl (7.4-10.4); Monocytes Absolute Auto 0.8 K/mm3 (0.1-0.6); Monocytes Percent Auto 5.6 % (2.6-8.5); Neutrophils Absolute Auto 10.3 K/mm3 (1.3-6.7); Neutrophils Percent Auto 73.2 % (45.5-73.1); Platelet Count Result 328 k/mm3 (150-375); Red Blood Count 5.95 M/mm3 (4.2-5.4); Red Cell Distribution Width 16.3 % (11.5-14.5)
[2023-07-03 14:48] LABS: Appearance Urine Clear (Clear); Bilirubin Urine Negative (Negative); Blood Urine Negative (Negative); Color Urine Yellow (Yellow); Glucose Urine UA Negative (Negative); Ketones Urine Trace mg/dL (Negative); Leukocyte Esterase Ur Negative LEU/UL (Negative); Nitrate Urine Negative (Negative); Protein Urine Negative (Negative); Specific Grav Ur 1.029 (1.001-1.035); Urobilinogen Urine 0.2 mg/dL (<2.0); pH Urine 5.5 (5.0-9.0)
[2023-07-03 14:56] LABS: Add Urine Microscopic? NO
[2023-07-03 14:57] LABS: Alanine Aminotransferase 18 U/L (6-35); Albumin Level 4.4 g/dL (3.5-5.1); Alkaline Phosphatase 70 U/L (38-126); Anion Gap 10 mmol/L (8-16); Aspartate Amino Transferase 27 U/L (14-36); Bilirubin,Total 0.6 mg/dL (0.2-1.3); Blood Urea Nitrogen 14 mg/dL (7-17); Calcium 8.7 mg/dL (8.4-10.2); Carbon Dioxide 22 mmol/L (22-30); Chloride 106 mmol/L (98-107); Estimated CRCL calculation 119 ml/min; Estimated Glomerular Filt Rate > 60; Glucose 122 mg/dL (65-110); Lipase 68 U/L (23-300); Potassium 3.7 mmol/L (3.4-5.0); Sodium 138 mmol/L (137-145)
[2023-07-03 15:07] LABS: Platelet Estimate Adequate (Adequate); Schistocytes None Seen (NORMAL)
[2023-07-03 15:08] LABS: Anisocytosis 2+ (NORMAL); Hypochromasia 1+ (NORMAL); Microcytosis 1+ (NORMAL)
[2023-07-03] MEDS: SODIUM CHLORIDE 0.9% IV 1,000 ML 999 ML IV CONT ×2 (15:09→17:41)
[2023-07-03] MEDS: PROMETHAZINE HCL 25 MG/ML AMPUL 12.5 MG IV PUSH (15:16)
--- NOTE | 2023-07-03 15:24 | ED.GENADULT ---
HPI - General Adult General Chief complaint: Nausea/Vomiting/Diarrhea Stated complaint: N/V/D Time Seen by Provider: 07/03/23 14:38 History of Present Illness HPI narrative: Patient is a 27-year-old female who presents to the emergency department this afternoon complaining of nausea, vomiting, and diarrhea. Patient states that symptoms started this morning around 3:00 a.m. Patient took a home test approximately a week ago last Saturday and it was positive. She denies any sharp abdominal pain but does get epigastric pain with the nausea, vomiting and retching/dry heaving. She denies any sick contacts or any exposure to COVID or influenza. Patient denies any additional symptoms including chest pain, shortness of breath, dysuria, hematuria, constipation, diarrhea, melena, hematochezia, fevers or chills. Patient also denies any headaches, dizziness, lightheadedness, blurry visions, focal weakness, numbness and or tingling. There are no other modifying, alleviating, or precipitating factors at this time. Related Data Home Medications Medication Instructions Recorded Confirmed famotidine 20 mg tablet 20 mg PO BID 10/26/21 04/03/23 quetiapine 50 mg tablet 50 mg PO BID 10/26/21 04/03/23 sertraline 100 mg tablet mg 04/03/23 Allergies Allergy/AdvReac Type Severity Reaction Status Date / Time adhesive tape Allergy Redness of Verified 04/03/23 17:09 Skin Review of Systems Review of Systems: All systems are reviewed and are negative unless stated otherwise in the HPI. [facility] Past Medical History Medical History Alpha-thalassemia Anxiety Anxiety and depression Eczema Gastritis IBS (irritable bowel syndrome) IUFD (intrauterine ) Lumbago and not yet delivered Psoriasiform dermatitis Psoriasis Surgical History Surgical History No history of previous surgery Family History Family History Father Cerebrovascular accident Depression Hypertension Other Family history of arthritis Family history of mental disorder Social History Social History Years smoked: 1 Smoking status: Current every day smoker Tobacco type: e-cigarettes/vaping Second hand tobacco smoke exposure: Yes Alcohol intake: current Drinks per week: 4 Substance use: never Lack of Transportation: No Lack of Food: Never True Current Housing: I Have Housing Concerned About Future Housing: No Difficulty Paying Gas/Electric Bills: No Difficulty Paying for Meds: No Currently Unemployed: YES Education: Associate Degree Difficulty w/ Childcare or Family Care: No Gender identity (if verbalized by the patient): Female Spiritual care concerns: No Agree to blood products: Yes Exam Narrative: General: Alert, awake, afebrile, in moderate distress, actively retching and vomiting. HEENT: PERRL, no rhinorrhea, no post nasal drip, oropharynx clear. Neck: Trachea midline, no JVD, no lymphadenopathy. Cardiovascular: Tachycardic with regular rhythm, no murmurs, rubs or gallops, no peripheral edema. Respiratory: Clear to auscultation bilaterally, no tachypnea, no wheezing, no rhonchi, no rubs, no respiratory distress. Abdomen: Soft, nontender, nondistended, no rebound, no guarding, no peritoneal signs. Musculoskeletal: No joint swelling or deformity, normal muscle tone. Skin: No rashes or petechia, no signs of infection. Psychiatric: Alert and oriented, normal behavior and judgment for situation. Neurological: Alert and oriented to person, place, and time. Follows all commands. No focal deficits, speech is clear and fluent. Course Vital Signs Vital signs: Vital Signs Temperature 98.4 F 07/03/23 14:29 Pulse Rate 125 H 07/03/23 14:29 Respiratory Rat
--- NOTE | 2023-07-03 15:36 | PC.NURSE ---
Pt requested cool washcloth, provided by this RN
[2023-07-03 16:13] VITALS: BP 125/88; PULSE 105; RESP 17; O2SAT 100
--- NOTE | 2023-07-03 16:13 | PC.NURSE ---
Pt reports still nauseated, dry MD marika made aware.
[2023-07-03] MEDS: diphenhydrAMINE HCl INJ 50 MG/ML VIAL IV PUSH (16:18)
[2023-07-03] MEDS: METOCLOPRAMIDE HCL INJ 10 MG/2 ML VIAL IV PUSH (16:18)
[2023-07-03 17:35] LABS: Influenza A QL RT-PCR Negative (Negative); Influenza B QL RT-PCR Negative (Negative); SARS-CoV-2 RNA PCR Negative (Negative)
[2023-07-03] MEDS: ONDANSETRON INJ 4 MG/2 ML VIAL IV PUSH (17:41)
--- NOTE | 2023-07-03 19:06 | PC.NURSE ---
Report given to ETELVINA Fofana. Care of pt transferred.
[2023-07-03 20:07] VITALS: BP 129/94; PULSE 99; RESP 15; O2SAT 100
[2023-07-03 20:43] VITALS: BMI 22.7
[2023-07-03 20:44] VITALS: BP 122/70; PULSE 111; RESP 18; TEMP 36.8; O2SAT 100
--- NOTE | 2023-07-03 20:49 | PM.IMHP ---
H&P: HPI History of Present Illness Date/Time: 07/03/23 20:49 Chief Complaint: hyperemesis gravidarum Narrative: This is a 27-year-old female past medical history significant for alpha thalassemia, anxiety and depression, irritable bowel syndrome, patient is in her 1st trimester presents to the emergency room due to intractable nausea and vomiting heartburn unable to keep anything down, had 1 episode of diarrhea. Patient is been placed in observation for further evaluation management and treatment. Review of Systems Review of Systems: Nausea, vomiting, heartburn Constitutional: Constitutional: Denies chills, Denies fever(s), Denies malaise and Denies night sweats Eyes: Eyes: Denies change in vision ENT: Denies dysphagia and Denies odynophagia Cardiovascular: Cardiovascular: Denies chest pain and Denies leg edema Respiratory: Respiratory: Denies cough and Denies dyspnea Gastrointestinal: Gastrointestinal: Denies diarrhea, Denies nausea and Denies vomiting Genitourinary: Genitourinary: Denies dysuria Musculoskeletal: Musculoskeletal: Denies myalgias Integumentary/Breasts: Skin/Breast: Denies rash Neurologic: Denies focal weakness and Denies Sensory deficit (Neuro) Psychiatric: Psychiatric: Reports no additional psychiatric complaints and Reports as per HPI Endocrine: Endocrine: Denies cold intolerance, Denies fatigue, Denies flushing, Denies heat intolerance, Denies polyphagia, Denies polydipsia and Denies palpitations Hematologic/Lymphatic: Hematologic/Lymphatic: Reports no additional hematologic/lymphatic complaints and Reports as per HPI Allergic/Immunologic: Allergic/Immunologic: Reports no additional allergic/immunologic complaints and Reports as per HPI PMFSH Past Medical History Medical History Alpha-thalassemia Anxiety Anxiety and depression Eczema Gastritis IBS (irritable bowel syndrome) IUFD (intrauterine ) Lumbago and not yet delivered Psoriasiform dermatitis Psoriasis Surgical History Surgical History No history of previous surgery Family History Family History Father Cerebrovascular accident Depression Hypertension Other Family history of arthritis Family history of mental disorder Social History Social History Years smoked: 1 Smoking status: Current every day smoker Tobacco type: e-cigarettes/vaping Second hand tobacco smoke exposure: Yes Alcohol intake: never Drinks per week: 4 Substance use: current Substance use type: marijuana Other substance usage details: DECREASING Last use: 07/03/2023 Do You Feel Safe in your Home?: Yes Lack of Transportation: No Lack of Food: Never True Current Housing: I Have Housing Concerned About Future Housing: No Difficulty Paying Gas/Electric Bills: No Difficulty Paying for Meds: No Currently Unemployed: No Education: Associate Degree Difficulty w/ Childcare or Family Care: No Gender identity (if verbalized by the patient): Female Spiritual care concerns: No Agree to blood products: Yes Meds Home Medications and Allergies Home Medications Medication Instructions Recorded Confirmed Type famotidine 20 mg tablet 20 mg PO BID 10/26/21 07/03/23 History quetiapine 50 mg tablet 50 mg PO BID 10/26/21 07/03/23 History hydrocortisone-pramoxine 2.5 %-1 % 1 applic RECTAL QID PRN 11/09/22 07/03/23 Rx rectal cream (Analpram-HC) hemorrhoids #30 grams sertraline 100 mg tablet 100 mg PO QAM 04/03/23 07/03/23 History Allergies Allergy/AdvReac Type Severity Reaction Status Date / Time adhesive tape Allergy Redness of Verified 04/03/23 17:09 Skin Vital Signs Vital Signs - 24 hr 07/03/23 14:29 07/03/23 16:13 07/03/23 20:
[2023-07-03] MEDS: SODIUM CHLORIDE 0.9% IV 1,000 ML 100 ML IV CONT (21:50)
--- NOTE | 2023-07-03 21:55 | ADMGEN ---
This patient, Celia Durbin, was admitted to Medical Room 348-01. Patient/family oriented to hospital policies and general routines including ID bracelet, bed and alarms, visiting hours, pain management, procedures, bathroom and other care routines, personal items, smoking policy, room service/diet, and visiting hours. Information on how to activate the Rapid Response Team has been discussed. Patient/Family are encouraged to report perceived risks to care and to ask questions if they do not understand what they are told or what they should do.
[2023-07-03] MEDS: ONDANSETRON INJ 4 MG/2 ML VIAL 8 MG IV PUSH (22:19)
[2023-07-04] MEDS: diphenhydrAMINE HCl INJ 50 MG/ML VIAL IV PUSH (02:44)
[2023-07-04] MEDS: PROMETHAZINE HCL 25 MG/ML AMPUL IM ×2 (02:44→08:49)
[2023-07-04 04:14] VITALS: BP 113/55; PULSE 110; RESP 16; TEMP 37.2; O2SAT 98
--- NOTE | 2023-07-04 10:13 | PM.IMPN ---
Progress Note: A&P Assessment and Plan (1) Gastroenteritis: Code(s): K52.9 - Noninfective gastroenteritis and colitis, unspecified Status: Acute (2) Nausea and vomiting during : Code(s): O21.9 - Vomiting of , unspecified Status: Acute (3) 8 weeks gestation of : Code(s): Z3A.08 - 8 weeks gestation of Status: Acute (4) Intractable nausea and vomiting: Code(s): R11.2 - Nausea with vomiting, unspecified Status: Acute Plan Assessment and plan (1) Nausea and vomiting during : ?Code(s): O21.9 - Vomiting of , unspecified ?Status:?Acute ?Assessment and Plan: ?place in observation ?NPO ?IV fluids ?supportive care History of marijuana abuse Repeat drug screening positive marijuana Advised patient stop using marijuana because of side effects Start Zofran 4 mg IV q.6 hours as needed (2) 8 weeks gestation of : ?Code(s): Z3A.08 - 8 weeks gestation of ?Status:?Acute ?Assessment and Plan: History of miscarriage Consult OBGYN for evaluation (3) Alpha-thalassemia: ?Code(s): D56.0 - Alpha thalassemia ?Status:?Acute ?Assessment and Plan: ?stable Subjective Date/time seen: 07/04/23 10:13 Interval history: I saw exam patient today, patient still feeling nauseous, cannot tolerate diet, the nausea vomiting is improving. Patient admits she used marijuana yesterday morning Exam Narrative: GENERAL: Pleasant, in no acute distress. Well-nourished. - EYES: EOMI. Anicteric. - HENT: Moist mucous membranes. - LUNGS: Clear to auscultation bilaterally, no wheezing, rhonchi, or rales. - CARDIOVASCULAR: Regular rate and rhythm. No murmur. No JVD. - ABDOMEN: Soft, non-tender and non-distended. No palpable masses. - EXTREMITIES: No edema. Peripheral pulses 2+. Non-tender. - NEUROLOGIC: No focal neurological deficits. CN II-XII grossly intact. - PSYCHIATRIC: Awake, Alert and oriented x 3. Appropriate mood and affect. - SKIN: No rashes or lesions. Warm. - LYMPH: No cervical lymphadenopathy. Objective Data Vital Signs Vital Signs: Vital Signs - 24 hr 07/03/23 14:29 07/03/23 16:13 07/03/23 20:07 Temperature 98.4 F Pulse Rate 125 H 105 H 99 Respiratory Rate 20 17 15 Blood Pressure 132/97 H 125/88 129/94 H Pulse Oximetry 100 100 100 Oxygen Delivery 07/03/23 20:44 07/04/23 04:14 07/04/23 08:00 Temperature 98.2 F 99 F Pulse Rate 111 H 110 H Respiratory Rate 18 16 Blood Pressure 122/70 113/55 L Pulse Oximetry 100 98 Oxygen Delivery Room Air Intake/Output Intake/Output: Intake & Output 07/01/23 07/02/23 07/03/23 07/04/23 23:59 23:59 23:59 23:59 Intake Total 1999 Output Total 550 Balance 2000 -550 Meds/Results Medications: Active Medications Generic Name Dose Route Start Last Admin Trade Name Freq PRN Reason Stop Dose Admin Promethazine HCl 25 mg 07/04/23 02:05 07/04/23 08:49 Promethazine Hcl 25 Mg/Ml Ampul IM 25 mg Q6H PRN Administration Nausea And Vomiting Labs Labs: Laboratory Results - last 24 hr 07/03/23 07/03/23 14:38 15:38 WBC 14.0 H RBC 5.95 H Hgb 12.1 Hct 40.6 MCV 68.2 L MCH 20.3 L MCHC 29.8 L RDW 16.3 H Plt Count 328 MPV 10.9 H Immature Gran % (Auto) 0.4 Neut % (Auto) 73.2 H Lymph % (Auto) 19.5 [place] % (Auto) 5.6 Eos % (Auto) 0.9 Baso % (Auto) 0.4 Lymph # (Auto) 2.74 [place] # (Auto) 0.8 H Eos # (Auto) 0.1 Baso # (Auto) 0.1 Abs Immat Gran (auto) 0.06 H Absolute Neuts (auto) 10.3 H Absolute Nucleated RBC 0.0 Nucleated RBC % 0.0 Platelet Estimate Adequate Hypochromasia 1+ Anisocytosis 2+ Microcytosis 1+ Schistocytes None seen Sodium 138 Potassium 3.7 Chloride 106 Carbon Dioxide 22 Anion Gap 10 BUN 14 D Creatinine 0.50 L Estim Creat Clear Calc 119 Estimated GFR > 60 Glucose
[2023-07-04 10:45] LABS: Basophils Percent Auto 0.2 % (0.2-1.2); Hematocrit 33.7 % (37.0-47.0); Hemoglobin 10.1 g/dL (12.0-15.0); Immature Granulocyte Absolute 0.07 K/mm3 (0.00-0.031); Immature Granulocyte Percent A 0.5 % (0-0.5); Lymphocytes Absolute Auto 2.17 K/mm3 (0.9-3.2); Lymphocytes Percent Auto 14.9 % (18.3-44.2); Mean Corpuscular Hemoglobin 20.4 pg (26-34); Mean Corpuscular Volume 68.2 fl (80-100); Mean Platelet Volume 10.6 fl (7.4-10.4); Monocytes Absolute Auto 0.8 K/mm3 (0.1-0.6); Monocytes Percent Auto 5.5 % (2.6-8.5); Neutrophils Absolute Auto 11.5 K/mm3 (1.3-6.7); Neutrophils Percent Auto 78.9 % (45.5-73.1); Platelet Count Result 285 k/mm3 (150-375); Red Blood Count 4.94 M/mm3 (4.2-5.4); Red Cell Distribution Width 15.7 % (11.5-14.5); White Blood Count 14.5 K/mm3 (4.5-10.0)
[2023-07-04 10:57] LABS: Anion Gap 11 mmol/L (8-16); Blood Urea Nitrogen 7 mg/dL (7-17); Calcium 8.3 mg/dL (8.4-10.2); Carbon Dioxide 20 mmol/L (22-30); Chloride 109 mmol/L (98-107); Estimated CRCL calculation 119 ml/min; Estimated Glomerular Filt Rate > 60; Glucose 89 mg/dL (65-110); Potassium 3.3 mmol/L (3.4-5.0); Sodium 140 mmol/L (137-145)
[2023-07-04 11:13] LABS: Anisocytosis 1+ (NORMAL); Hypochromasia 1+ (NORMAL); Platelet Estimate Adequate (Adequate); Target Cells 1+ (NORMAL)
[2023-07-04 11:14] LABS: Schistocytes None Seen (NORMAL)
[2023-07-04 12:03] LABS: Amphetamine Screen Urine Negative (Negative); Barbiturate Screen Urine Negative (Negative); Benzodiazepines Screen Urine Negative (Negative); Cannabinoid Screen Urine Positive (Negative); Cocaine Screen Urine Negative (Negative); Methadone Screen Urine Negative (Negative); Opiate Screen Urine Negative (Negative); Phencyclidine Screen Urine Negative (Negative)
[2023-07-04] MEDS: ONDANSETRON INJ 4 MG/2 ML VIAL IV PUSH ×3 (13:47→23:43)
[2023-07-04] MEDS: DEXTROSE 5%/LACTATED RINGERS 1,000 ML 175 ML IV CONT ×2 (13:48→23:43)
[2023-07-04 14:00] VITALS: BP 113/59; PULSE 100; RESP 16; TEMP 36.6; O2SAT 100
[2023-07-04] MEDS: METOCLOPRAMIDE HCL INJ 10 MG/2 ML VIAL IV PUSH ×2 (16:52→21:07)
--- NOTE | 2023-07-04 17:21 | WPDCN ---
Assessment and Plan Assessment and plan (1) 4 weeks gestation of : Code(s): Z3A.01 - Less than 8 weeks gestation of Status: Acute Assessment and Plan: will continue to follow up at our office for OB care (2) Gastroenteritis: Code(s): K52.9 - Noninfective gastroenteritis and colitis, unspecified Status: Acute Assessment and Plan: IV fluids changed to D5 LR. Scheduled Reglan and Zofran ordered. Suspect patient will be discharged in a.m.. [facility] Data of Consult Date/Time: 07/04/23 17:21 Requesting Physician: Harshil Graham MD Primary Care Provider: Flower Wilkerson, PA Consult Narrative Reason for consult: patient with gastroenteritis Narrative: Celia Durbin is a 27 year old female 2 para 1 at 4 weeks and 3 days admitted through the emergency room yesterday with nausea, vomiting, and diarrhea. The patient states she had similar episode last week. The diarrhea has resolved. Patient is currently having still persistent nausea with vomiting of stomach acid. Patient has had no vaginal bleeding or abdominal pain. Patient denies fevers. I was not notified of the patient's admission until this afternoon. Review of Systems Constitutional: Constitutional: Reports as per HPI PMFSH Past Medical History Medical History (Updated 07/04/23 @ 17:27 by Shaista Argueta MD) Alpha-thalassemia Anxiety and depression Eczema Gastritis IBS (irritable bowel syndrome) IUFD (intrauterine ) October 2022 38 week demise 7lb 5oz Lumbago Psoriasiform dermatitis Surgical History Surgical History No history of previous surgery Family History Family History Father Cerebrovascular accident Depression Hypertension Other Family history of arthritis Family history of mental disorder Social History Social History Years smoked: 1 Smoking status: Current every day smoker Tobacco type: e-cigarettes/vaping Second hand tobacco smoke exposure: Yes Alcohol intake: never Drinks per week: 4 Substance use: current Substance use type: marijuana Other substance usage details: DECREASING Last use: 07/03/2023 Do You Feel Safe in your Home?: Yes Lack of Transportation: No Lack of Food: Never True Current Housing: I Have Housing Concerned About Future Housing: No Difficulty Paying Gas/Electric Bills: No Difficulty Paying for Meds: No Currently Unemployed: No Education: Associate Degree Difficulty w/ Childcare or Family Care: No Gender identity (if verbalized by the patient): Female Spiritual care concerns: No Agree to blood products: Yes Meds Home Medications and Allergies Home Medications Medication Instructions Recorded Confirmed Type famotidine 20 mg tablet 20 mg PO BID 10/26/21 07/03/23 History quetiapine 50 mg tablet 50 mg PO BID 10/26/21 07/03/23 History hydrocortisone-pramoxine 2.5 %-1 % 1 applic RECTAL QID PRN 11/09/22 07/03/23 Rx rectal cream (Analpram-HC) hemorrhoids #30 grams sertraline 100 mg tablet 100 mg PO QAM 04/03/23 07/03/23 History Allergies Allergy/AdvReac Type Severity Reaction Status Date / Time adhesive tape Allergy Redness of Verified 04/03/23 17:09 Skin Vital Signs Vital Signs - 24 hr 07/03/23 20:07 07/03/23 20:44 07/04/23 04:14 Temperature 98.2 F 99 F Pulse Rate 99 111 H 110 H Respiratory Rate 15 18 16 Blood Pressure 129/94 H 122/70 113/55 L Pulse Oximetry 100 100 98 Oxygen Delivery 07/04/23 08:00 07/04/23 14:00 Temperature 97.9 F Pulse Rate 100 Respiratory Rate 16 Blood Pressure 113/59 L Pulse Oximetry 100 Oxygen Delivery Room Air Exam Const: General: ill appearing Nutritional Appearance: average body habitus
[2023-07-04 20:00] VITALS: PULSE 101; RESP 16; O2SAT 100
[2023-07-04 21:05] VITALS: BP 127/85; PULSE 101; RESP 16; TEMP 37.5; O2SAT 100
[2023-07-04 22:09] VITALS: O2SAT 100
[2023-07-05] MEDS: METOCLOPRAMIDE HCL INJ 10 MG/2 ML VIAL IV PUSH (05:10)
[2023-07-05] MEDS: ONDANSETRON INJ 4 MG/2 ML VIAL IV PUSH ×3 (05:11→17:21)
[2023-07-05 05:15] VITALS: BP 146/82; PULSE 104; RESP 16; TEMP 37.2; O2SAT 100
[2023-07-05] MEDS: DEXTROSE 5%/LACTATED RINGERS 1,000 ML 175 ML IV CONT ×2 (05:44→17:22)
[2023-07-05] MEDS: hydrOXYzine HCl 50 MG/ML VIAL 25 MG IM ×2 (08:53→18:58)
[2023-07-05] MEDS: FAMOTIDINE 20 MG/2 ML VIAL IV PUSH ×2 (08:53→21:53)
[2023-07-05] MEDS: IRON SUCROSE COMPLEX 500 MG in SODIUM CHLORIDE 0.9% IV 250 ML 78.57 MG IVPB (09:00)
[2023-07-05] MEDS: POTASSIUM CHLORIDE INJ 40 MEQ in SODIUM CHLORIDE 0.9% IV 500 ML 130 MEQ IVPB (09:06)
[2023-07-05 10:12] LABS: Basophils Percent Auto 0.2 % (0.2-1.2); Hematocrit 32.3 % (37.0-47.0); Hemoglobin 9.9 g/dL (12.0-15.0); Immature Granulocyte Percent A 0.7 % (0-0.5); Lymphocytes Absolute Auto 2.29 K/mm3 (0.9-3.2); Lymphocytes Percent Auto 16.8 % (18.3-44.2); Mean Corpuscular HGB Conc 30.7 g/dl (32-36); Mean Corpuscular Hemoglobin 20.4 pg (26-34); Mean Corpuscular Volume 66.5 fl (80-100); Mean Platelet Volume 10.5 fl (7.4-10.4); Monocytes Percent Auto 7.3 % (2.6-8.5); Neutrophils Absolute Auto 10.2 K/mm3 (1.3-6.7); Platelet Count Result 284 k/mm3 (150-375); Red Blood Count 4.86 M/mm3 (4.2-5.4); Red Cell Distribution Width 15.1 % (11.5-14.5); White Blood Count 13.6 K/mm3 (4.5-10.0)
--- NOTE | 2023-07-05 10:29 | WPDPN ---
Progress Note: A&P Assessment and Plan (1) 5 weeks gestation of : Code(s): Z3A.01 - Less than 8 weeks gestation of Status: Acute (2) Anxiety and depression: Code(s): F41.9 - Anxiety disorder, unspecified; F32.A - Depression, unspecified Status: Acute (3) Alpha-thalassemia: Code(s): D56.0 - Alpha thalassemia Status: Acute (4) Intractable nausea and vomiting: Code(s): R11.2 - Nausea with vomiting, unspecified Status: Acute (5) Hypokalemia: Code(s): E87.6 - Hypokalemia Status: Acute (6) Anemia affecting : Code(s): O99.019 - Anemia complicating , unspecified trimester Status: Acute (7) Marijuana use during : Code(s): O99.320 - Drug use complicating , unspecified trimester; F12.90 - Cannabis use, unspecified, uncomplicated Status: Acute Plan 1. 27 y.o. at 5 weeks 2 days of by LMP - no bleeding/spotting. Plan repeat beta hcg with next blood draw - plan US 1 week 2. Intractable Nausea and Vomiting - Continue IV Zofran, add Phenergan [place]. DC Reglan. Will trial vistaril in addition. Can attempt po food/fluid as desired. - Continue D5LR 3. Hypokalemia - 40mEq K run ordered. Plan repeat BMP 6 hours after completion of potassium 4. Anemia in - unable to tolerate PO. Plan Iron Sucrose today 5. Marijuana use in - states was only using occasionally. sx likely not due to hyperemesis cannabinoid syndrome Subjective Date/time seen: 07/05/23 0740 Interval history: Reports continued nausea and vomiting despite medications. Indigestion worsening. States diarrhea has resolved. Denies pain or bleeding. Unable to tolerate anything PO. Review of Systems Review of Systems: All systems reviewed & are unremarkable except as noted in HPI and below Constitutional: Constitutional: Reports lethargy Exam Const: General: comfortable and no acute distress Neck: Neck: supple Resp: Effort & Inspection: normal respiratory effort Cardio: Rate: regular rate Rhythm: regular rhythm GI: GI Palp: Yes Soft to palpation Auscultation: normal bowel sounds Skin: General skin exam: normal color Neuro: Speech: normal speech Sensory Exam: normal sensation Extrem: General: normal to inspection Psych: Mental Status: mental status grossly normal Objective Data Vital Signs Vital Signs: Vital Signs - 24 hr 07/04/23 14:00 07/04/23 21:05 07/04/23 20:00 Temperature 97.9 F 99.5 F Pulse Rate 100 101 H 101 H Respiratory Rate 16 16 16 Blood Pressure 113/59 L 127/85 Pulse Oximetry 100 100 100 Oxygen Delivery Room Air 07/04/23 22:09 07/05/23 05:15 Temperature 99 F Pulse Rate 104 H Respiratory Rate 16 Blood Pressure 146/82 H Pulse Oximetry 100 100 Oxygen Delivery Room Air Intake/Output Intake/Output: Intake & Output 07/02/23 07/03/23 07/04/23 07/05/23 23:59 23:59 23:59 23:59 Intake Total 1999 1100 1100 Output Total 750 500 Balance 1999 350 600 Meds/Results Medications: Active Medications Generic Name Dose Route Start Last Admin Trade Name Freq PRN Reason Stop Dose Admin Famotidine 20 mg 07/05/23 09:00 07/05/23 08:53 Famotidine 20 Mg/2 Ml Vial IV PUSH 20 mg Q12HR ANTHONY Administration Dextrose/Lactated Ringer's 1,000 mls @ 175 mls/hr 07/04/23 13:00 07/05/23 09:09 Dextrose 5%/Lactated Ringers IV CONT Not Given .Q5H43M ANTHONY Potassium Chloride 40 meq/ 520 mls @ 130 mls/hr 07/05/23 08:05 07/05/23 09:06 Sodium Chloride IVPB 07/05/23 12:04 130 mls/hr ONCE ONE Administration Ondansetron HCl 4 mg 07/04/23 13:00 07/05/23 05:11 Ondansetron Inj 4 Mg/2 Ml Vial IV PUSH 4 mg Q6HR ANTHONY Administration Promethazine HCl 25 mg 07/05/23 12:00 Promethazine Hcl 25 Mg Supp.Rect RECTAL Q6HR [facility] Labs Labs: Laboratory Results - last 24 hr 07/04/23 07/04/23 10:3
[2023-07-05 10:35] LABS: Anion Gap 8 mmol/L (8-16); Blood Urea Nitrogen 3 mg/dL (7-17); Calcium 8.2 mg/dL (8.4-10.2); Carbon Dioxide 24 mmol/L (22-30); Chloride 105 mmol/L (98-107); Estimated CRCL calculation 144 ml/min; Estimated Glomerular Filt Rate > 60; Glucose 110 mg/dL (65-110); Potassium 2.9 mmol/L (3.4-5.0); Sodium 137 mmol/L (137-145)
[2023-07-05 11:54] LABS: Anisocytosis 1+ (NORMAL); Hypochromasia 1+ (NORMAL); Platelet Estimate Adequate (Adequate); Schistocytes None Seen (NORMAL); Target Cells 1+ (NORMAL)
--- NOTE | 2023-07-05 11:57 | PM.IMPN ---
Progress Note: A&P Assessment and Plan (1) Gastroenteritis: Code(s): K52.9 - Noninfective gastroenteritis and colitis, unspecified Status: Acute (2) Nausea and vomiting during : Code(s): O21.9 - Vomiting of , unspecified Status: Acute (3) 8 weeks gestation of : Code(s): Z3A.08 - 8 weeks gestation of Status: Acute (4) Intractable nausea and vomiting: Code(s): R11.2 - Nausea with vomiting, unspecified Status: Acute Plan Assessment and plan (1) Nausea and vomiting during : ?Code(s): O21.9 - Vomiting of , unspecified ?Status:?Acute ?Assessment and Plan: ?place in observation ?NPO ?IV fluids ?supportive care History of marijuana abuse Repeat drug screening positive marijuana Advised patient stop using marijuana because of side effects Start Zofran 4 mg IV q.6 hours and regular IV Start D5 lactated Ringer IV per OBGYN Patient still has nausea, poor intake (2) 8 weeks gestation of : ?Code(s): Z3A.08 - 8 weeks gestation of ?Status:?Acute ?Assessment and Plan: History of miscarriage Consult OBGYN for evaluation (3) Alpha-thalassemia: ?Code(s): D56.0 - Alpha thalassemia ?Status:?Acute ?Assessment and Plan: ?stable Hypokalemia Potassium 2.9 due to poor intake Start potassium chloride 40 mEq IV once per OBGYN Subjective Date/time seen: 07/05/23 11:57 Interval history: I saw exam patient today, patient still feel nauseous, cannot tolerate diet, patient has a general weakness, labs reviewed, patient has hypokalemia potassium 2.9 Exam Narrative: GENERAL: Pleasant, in no acute distress. Well-nourished. - EYES: EOMI. Anicteric. - HENT: Moist mucous membranes. - LUNGS: Clear to auscultation bilaterally, no wheezing, rhonchi, or rales. - CARDIOVASCULAR: Regular rate and rhythm. No murmur. No JVD. - ABDOMEN: Soft, non-tender and non-distended. No palpable masses. - EXTREMITIES: No edema. Peripheral pulses 2+. Non-tender. - NEUROLOGIC: No focal neurological deficits. CN II-XII grossly intact. - PSYCHIATRIC: Awake, Alert and oriented x 3. Appropriate mood and affect. - SKIN: No rashes or lesions. Warm. - LYMPH: No cervical lymphadenopathy. Objective Data Vital Signs Vital Signs: Vital Signs - 24 hr 07/04/23 14:00 07/04/23 21:05 07/04/23 20:00 Temperature 97.9 F 99.5 F Pulse Rate 100 101 H 101 H Respiratory Rate 16 16 16 Blood Pressure 113/59 L 127/85 Pulse Oximetry 100 100 100 Oxygen Delivery Room Air 07/04/23 22:09 07/05/23 05:15 07/05/23 08:00 Temperature 99 F Pulse Rate 104 H Respiratory Rate 16 Blood Pressure 146/82 H Pulse Oximetry 100 100 Oxygen Delivery Room Air Room Air Intake/Output Intake/Output: Intake & Output 07/02/23 07/03/23 07/04/23 07/05/23 23:59 23:59 23:59 23:59 Intake Total 1999 1100 1100 Output Total 750 500 Balance 1999 350 600 Meds/Results Medications: Active Medications Generic Name Dose Route Start Last Admin Trade Name Freq PRN Reason Stop Dose Admin Famotidine 20 mg 07/05/23 09:00 07/05/23 08:53 Famotidine 20 Mg/2 Ml Vial IV PUSH 20 mg Q12HR ANTHONY Administration Dextrose/Lactated Ringer's 1,000 mls @ 175 mls/hr 07/04/23 13:00 07/05/23 09:09 Dextrose 5%/Lactated Ringers IV CONT Not Given .Q5H43M [facility] Potassium Chloride 40 meq/ 520 mls @ 130 mls/hr 07/05/23 08:05 07/05/23 09:06 Sodium Chloride IVPB 07/05/23 12:04 130 mls/hr ONCE ONE Administration Ondansetron HCl 4 mg 07/04/23 13:00 07/05/23 05:11 Ondansetron Inj 4 Mg/2 Ml Vial IV PUSH 4 mg Q6HR ANTHONY Administration Promethazine HCl 25 mg 07/05/23 12:00 Promethazine Hcl 25 Mg Supp.Rect RECTAL Q6HR [facility] Labs Labs: Laboratory Results - last 24 hr 07/04/23 07/05/23 11:23 09:59 WBC 13.6 H RBC 4.86 Hgb 9.9 L Hct 32.3 L MCV 66
[2023-07-05] MEDS: PROMETHAZINE HCL 25 MG SUPP.RECT RECTAL (12:21)
[2023-07-05 14:00] VITALS: BP 128/85; PULSE 97; RESP 16; TEMP 36.9; O2SAT 100
[2023-07-05 20:42] VITALS: BP 125/82; PULSE 82; RESP 21; TEMP 36.9; O2SAT 100
[2023-07-05] MEDS: PROMETHAZINE HCL 25 MG/ML AMPUL IM (22:40)
[2023-07-06] MEDS: DEXTROSE 5%/LACTATED RINGERS 1,000 ML 175 ML IV CONT ×2 (00:15→06:00)
[2023-07-06] MEDS: ONDANSETRON INJ 4 MG/2 ML VIAL IV PUSH ×2 (00:50→06:38)
[2023-07-06 05:52] LABS: Basophils Absolute Auto 0.1 K/mm3 (0.0-0.1); Basophils Percent Auto 0.4 % (0.2-1.2); Eosinophils Percent Auto 0.3 % (0-4.4); Hematocrit 32.6 % (37.0-47.0); Hemoglobin 9.8 g/dL (12.0-15.0); Immature Granulocyte Absolute 0.09 K/mm3 (0.00-0.031); Immature Granulocyte Percent A 0.7 % (0-0.5); Lymphocytes Absolute Auto 2.77 K/mm3 (0.9-3.2); Lymphocytes Percent Auto 22.6 % (18.3-44.2); Mean Corpuscular HGB Conc 30.1 g/dl (32-36); Mean Corpuscular Hemoglobin 20.4 pg (26-34); Mean Corpuscular Volume 67.8 fl (80-100); Mean Platelet Volume 11.1 fl (7.4-10.4); Monocytes Absolute Auto 1.2 K/mm3 (0.1-0.6); Monocytes Percent Auto 9.4 % (2.6-8.5); Neutrophils Absolute Auto 8.2 K/mm3 (1.3-6.7); Neutrophils Percent Auto 66.6 % (45.5-73.1); Platelet Count Result 266 k/mm3 (150-375); Red Blood Count 4.81 M/mm3 (4.2-5.4); Red Cell Distribution Width 15.1 % (11.5-14.5); White Blood Count 12.3 K/mm3 (4.5-10.0)
[2023-07-06 06:00] VITALS: BP 132/80; PULSE 91; RESP 21; TEMP 37; O2SAT 100
[2023-07-06 06:07] LABS: Anion Gap 4 mmol/L (8-16); Calcium 8.2 mg/dL (8.4-10.2); Carbon Dioxide 25 mmol/L (22-30); Chloride 106 mmol/L (98-107); Estimated CRCL calculation 144 ml/min; Estimated Glomerular Filt Rate > 60; Glucose 130 mg/dL (65-110); Sodium 135 mmol/L (137-145)
[2023-07-06 06:09] LABS: Blood Urea Nitrogen < 2 mg/dL (7-17)
[2023-07-06 06:25] LABS: Hypochromasia 3+ (NORMAL); Ovalocytes 1+ (NORMAL); Platelet Estimate Adequate (Adequate); Schistocytes None Seen (NORMAL)
[2023-07-06] MEDS: FAMOTIDINE 20 MG/2 ML VIAL IV PUSH (09:28)
--- NOTE | 2023-07-06 10:36 | WPDPN ---
Progress Note: A&P Assessment and Plan (1) Intractable nausea and vomiting: Code(s): R11.2 - Nausea with vomiting, unspecified Status: Acute (2) 5 weeks gestation of : Code(s): Z3A.01 - Less than 8 weeks gestation of Status: Acute (3) Hypokalemia: Code(s): E87.6 - Hypokalemia Status: Acute (4) Anemia affecting : Code(s): O99.019 - Anemia complicating , unspecified trimester Status: Acute (5) Anxiety and depression: Code(s): F41.9 - Anxiety disorder, unspecified; F32.A - Depression, unspecified Status: Acute (6) Alpha-thalassemia: Code(s): D56.0 - Alpha thalassemia Status: Acute (7) Marijuana use during : Code(s): O99.320 - Drug use complicating , unspecified trimester; F12.90 - Cannabis use, unspecified, uncomplicated Status: Acute Plan 1. 27 y.o. at 5 weeks 3 days by sure LMP of 05/29/23 - rise in beta hcg (not doubling). Plan ultrasound in one week as outpatient. 2. Nausea and vomiting in - symptoms improved since yesterday. Tolerating small amounts of po food and fluids. - plan to change meds to PO today in hopes of progressing to home schedule. Continue antiemetics on a schedule - once tolerating PO medication and food/fluid, CNM ok with DC home at discretion of hospitalist. 3. Hypokalemia - repeat K run today with 40mEq KcL 4. Low Anion Gap - defer to hospitalist for correction prior to DC home 5. Anxiety and Depression - resume home medications po 6. Marijuana use in - continue to encourage cessation Time Spent With Patient Time with patient: 15 - 25 minutes Subjective Date/time seen: 07/06/23 10:25 Interval history: Sitting up in bed. States she is feeling better and on the mend . Able to tolerate bites of faustino crackers and sips of water. No vomiting, diarrhea, pain, or vaginal bleeding. Nausea present but improved. Review of Systems Review of Systems: All systems reviewed & are unremarkable except as noted in HPI and below Exam Const: General: comfortable and no acute distress Eyes: General: appearance normal, both eyes and all related structures Neck: Neck: supple Resp: Effort & Inspection: normal respiratory effort Cardio: Rate: regular rate GI: GI Palp: Yes Soft to palpation Auscultation: normal bowel sounds Skin: General skin exam: normal color Neuro: Speech: normal speech Sensory Exam: normal sensation Extrem: General: normal to inspection Psych: Mental Status: mental status grossly normal Affect: normal affect (mood happier compared with 07/05/23) Objective Data Vital Signs Vital Signs: Vital Signs - 24 hr 07/05/23 14:00 07/05/23 20:42 07/05/23 20:00 Temperature 98.5 F 98.4 F Pulse Rate 97 82 Respiratory Rate 16 21 H Blood Pressure 128/85 125/82 Pulse Oximetry 100 100 Oxygen Delivery Room Air 07/06/23 06:00 07/06/23 08:00 Temperature 98.6 F Pulse Rate 91 Respiratory Rate 21 H Blood Pressure 132/80 Pulse Oximetry 100 Oxygen Delivery Room Air Intake/Output Intake/Output: Intake & Output 07/03/23 07/04/23 07/05/23 07/06/23 23:59 23:59 23:59 23:59 Intake Total 1999 1100 2475 2620 Output Total 750 500 300 Balance 1999 350 1975 2320 Meds/Results Medications: Active Medications Generic Name Dose Route Start Last Admin Trade Name Austinq PRN Reason Stop Dose Admin Famotidine 20 mg 07/05/23 09:00 07/06/23 09:28 Famotidine 20 Mg/2 Ml Vial IV PUSH 20 mg Q12HR ANTHONY Administration Hydroxyzine HCl 25 mg 07/05/23 12:13 07/05/23 18:58 Hydroxyzine Hcl 50 Mg/Ml Vial IM 25 mg Q12HR PRN Administration Nausea And Vomiting Dextrose/Lactated Ringer's 1,000 mls @ 175 mls/hr 07/04/23 13:00 07/06/23 06:00 Dextrose 5%/Lactated Ringers IV CONT 175 mls/hr .Q5H43M ANTHONY Administration Potassium Chloride 40 meq/ 520 ml
[2023-07-06 10:55] LABS: Appearance Urine Clear (Clear); Bilirubin Urine Negative (Negative); Blood Urine Negative (Negative); Color Urine Yellow (Yellow); Glucose Urine UA Negative (Negative); Ketones Urine Negative (Negative); Leukocyte Esterase Ur Negative LEU/UL (NEGATIVE); Nitrate Urine Negative (Negative); Protein Urine Negative (Negative); Specific Grav Ur 1.005 (1.001-1.035); Urobilinogen Urine 0.2 mg/dL (<2.0)
[2023-07-06] MEDS: POTASSIUM CHLORIDE INJ 40 MEQ in SODIUM CHLORIDE 0.9% IV 500 ML 130 MEQ IVPB (10:55)
[2023-07-06 11:00] LABS: Add Urine Microscopic? NO
[2023-07-06 11:51] LABS: Magnesium 1.9 mg/dL (1.6-2.3); Phosphorus 2.5 mg/dL (2.5-4.5)
--- NOTE | 2023-07-06 12:41 | PM.IMPN ---
Progress Note: A&P Assessment and Plan (1) Gastroenteritis: Code(s): K52.9 - Noninfective gastroenteritis and colitis, unspecified Status: Acute (2) Nausea and vomiting during : Code(s): O21.9 - Vomiting of , unspecified Status: Acute (3) 8 weeks gestation of : Code(s): Z3A.08 - 8 weeks gestation of Status: Acute (4) Intractable nausea and vomiting: Code(s): R11.2 - Nausea with vomiting, unspecified Status: Acute Plan Assessment and plan (1) Nausea and vomiting during : ?Code(s): O21.9 - Vomiting of , unspecified ?Status:?Acute ?Assessment and Plan: ?place in observation ?NPO ?IV fluids ?supportive care History of marijuana abuse Repeat drug screening positive marijuana Advised patient stop using marijuana because of side effects Start Zofran 4 mg IV q.6 hours and regular IV Start D5 lactated Ringer IV per OBGYN Patient still has nausea, poor intake 07/06: Nausea vomiting have resolved, patient is able to eat crackers and drinking water (2) 8 weeks gestation of : ?Code(s): Z3A.08 - 8 weeks gestation of ?Status:?Acute ?Assessment and Plan: History of miscarriage Consult OBGYN for evaluation Management per OBGYN (3) Alpha-thalassemia: ?Code(s): D56.0 - Alpha thalassemia ?Status:?Acute ?Assessment and Plan: ?stable Hypokalemia 07/05 Potassium 2.9 due to poor intake Started potassium chloride 40 mEq IV once per OBGYN 07/06 K 3.0, replete with potassium chloride 40 mEq IV, patient has low anion gap, checking phosphate and magnesium level of within normal limits, phosphorus on the lower side 2.5. Provide potassium phosphorus sodium phosphate is 250 mg p.o. once Follow-up BMP and phosphorus level pm Subjective Date/time seen: 07/06/23 12:41 Interval history: I saw and examined patient today, patient feels better today, nausea vomiting resolved. Patient ate crackers and drank water, tolerated well Exam Narrative: GENERAL: Pleasant, in no acute distress. Well-nourished. - EYES: EOMI. Anicteric. - HENT: Moist mucous membranes. - LUNGS: Clear to auscultation bilaterally, no wheezing, rhonchi, or rales. - CARDIOVASCULAR: Regular rate and rhythm. No murmur. No JVD. - ABDOMEN: Soft, non-tender and non-distended. No palpable masses. - EXTREMITIES: No edema. Peripheral pulses 2+. Non-tender. - NEUROLOGIC: No focal neurological deficits. CN II-XII grossly intact. - PSYCHIATRIC: Awake, Alert and oriented x 3. Appropriate mood and affect. - SKIN: No rashes or lesions. Warm. - LYMPH: No cervical lymphadenopathy. Objective Data Vital Signs Vital Signs: Vital Signs - 24 hr 07/05/23 14:00 07/05/23 20:42 07/05/23 20:00 Temperature 98.5 F 98.4 F Pulse Rate 97 82 Respiratory Rate 16 21 H Blood Pressure 128/85 125/82 Pulse Oximetry 100 100 Oxygen Delivery Room Air 07/06/23 06:00 07/06/23 08:00 Temperature 98.6 F Pulse Rate 91 Respiratory Rate 21 H Blood Pressure 132/80 Pulse Oximetry 100 Oxygen Delivery Room Air Intake/Output Intake/Output: Intake & Output 07/03/23 07/04/23 07/05/23 07/06/23 23:59 23:59 23:59 23:59 Intake Total 1999 1100 2475 2620 Output Total 750 500 300 Balance 1999 350 1975 2320 Meds/Results Medications: Active Medications Generic Name Dose Route Start Last Admin Trade Name Freq PRN Reason Stop Dose Admin Famotidine 20 mg 07/06/23 21:00 Famotidine 20 Mg Tablet PO Q12HR [facility] Potassium Chloride 40 meq/ 520 mls @ 130 mls/hr 07/06/23 10:11 07/06/23 10:55 Sodium Chloride IVPB 07/06/23 14:10 130 mls/hr ONCE ONE Administration Dextrose/Lactated Ringer's 1,000 mls @ 100 mls/hr 07/06/23 11:10 Dextrose 5%/Lactated Ringers IV CONT .Q10H ANTHONY Ondansetron HCl 4 mg 07/06/23 11:07 Ondansetron Hcl Odt 4 Mg Tablet PO Q6H PRN Nausea
--- NOTE | 2023-07-06 12:49 | PM.DS ---
DS: Admitting Diagnosis Discharge Date 07/06/23 Admitting Diagnosis (1) Gastroenteritis: ?Code(s): K52.9 - Noninfective gastroenteritis and colitis, unspecified ?Status:?Acute (2) Nausea and vomiting during : ?Code(s): O21.9 - Vomiting of , unspecified ?Status:?Acute (3) 8 weeks gestation of : ?Code(s): Z3A.08 - 8 weeks gestation of ?Status:?Acute (4) Intractable nausea and vomiting: ?Code(s): R11.2 - Nausea with vomiting, unspecified ?Status:?Acute DS: Discharge Diagnosis Discharge Diagnosis (1) Gastroenteritis: Code(s): K52.9 - Noninfective gastroenteritis and colitis, unspecified Status: Acute (2) Nausea and vomiting during : Code(s): O21.9 - Vomiting of , unspecified Status: Acute (3) 8 weeks gestation of : Code(s): Z3A.08 - 8 weeks gestation of Status: Acute (4) Intractable nausea and vomiting: Code(s): R11.2 - Nausea with vomiting, unspecified Status: Acute DS: Summary Hospital Course Hospital Course: This is a 27-year-old female past medical history significant for alpha thalassemia, anxiety and depression, irritable bowel syndrome,? patient is in her 1st? trimester presents to the emergency room due to intractable nausea and vomiting heartburn unable to keep anything down, had 1 episode of diarrhea.? Patient is been placed in observation for further evaluation management and treatment. Following medical issues have been addressed during hospitalization (1) Nausea and vomiting during : ?Code(s): O21.9 - Vomiting of , unspecified ?Status:?Acute ?Assessment and Plan: ?place in observation ?NPO ?IV fluids ?supportive care History of marijuana abuse Repeat drug screening positive marijuana Advised patient stop using marijuana because of side effects Start Zofran 4 mg IV q.6 hours and regular IV Start D5 lactated Ringer IV per OBGYN Patient still has nausea, poor intake 07/06: Nausea vomiting have resolved, patient is able to eat crackers and drinking water (2) 8 weeks gestation of : ?Code(s): Z3A.08 - 8 weeks gestation of ?Status:?Acute ?Assessment and Plan: History of miscarriage Consult OBGYN for evaluation Management per OBGYN (3) Alpha-thalassemia: ?Code(s): D56.0 - Alpha thalassemia ?Status:?Acute ?Assessment and Plan: ?stable Hypokalemia 07/05 Potassium 2.9 due to poor intake Started potassium chloride 40 mEq IV once per OBGYN 07/06 K 3.0, replete with potassium chloride 40 mEq IV, patient has low anion gap, checking phosphate and magnesium level of within normal limits, phosphorus on the lower side 2.5. Provide potassium phosphorus sodium phosphate is 250 mg p.o. once Follow-up BMP and phosphorus level per PCP and OB in the office Patient is discharged per Ob recommendation Time Spent with Patient Time attestation: Total time spent providing and/or coordinating discharge services: Exam Narrative: GENERAL: Pleasant, in no acute distress. Well-nourished. - EYES: EOMI. Anicteric. - HENT: Moist mucous membranes. - LUNGS: Clear to auscultation bilaterally, no wheezing, rhonchi, or rales. - CARDIOVASCULAR: Regular rate and rhythm. No murmur. No JVD. - ABDOMEN: Soft, non-tender and non-distended. No palpable masses. - EXTREMITIES: No edema. Peripheral pulses 2+. Non-tender. - NEUROLOGIC: No focal neurological deficits. CN II-XII grossly intact. - PSYCHIATRIC: Awake, Alert and oriented x 3. Appropriate mood and affect. - SKIN: No rashes or lesions. Warm. - LYMPH: No cervical lymphadenopathy. DS: Data Data Completed and Pending Labs on day of discharge: Labs from last 24 hours 07/06/23 07/06/23 07/06/23 10:46 05:35 05:35 WBC 12.3 H RBC 4.81 Hgb 9.8 L Hct 32.6 L MCV 67.8 L MCH 20.4 L MCHC 30.1 L
[2023-07-06] MEDS: POTASSIUM PHOS/SODIUM PHOS 250 MG TABLET PO (13:49)
[2023-07-06] MEDS: PROMETHAZINE HCL 25 MG TABLET PO (16:47)
== END 2023-07-06 17:44 | disposition home or self-care (01) | DRG 566 ==
LOC: ANHED 18:16 → ANH3MED 07-04 16:00
PROVIDERS: Advanced Practice Midwife; Nurse Practitioner Family; Admitting Provider Internal Medicine; Emergency Provider Emergency Medicine; PCP Physician Assistant; Visit Provider Hospitalist
DX: O99.611 Diseases of the digestive system complicating pregnancy, first trimester (principal); K52.9 Noninfective gastroenteritis and colitis, unspecified; Z3A.01 Less than 8 weeks gestation of pregnancy; O99.281 Endocrine, nutritional and metabolic diseases complicating pregnancy, first trimester; E87.6 Hypokalemia; O99.011 Anemia complicating pregnancy, first trimester; D56.0 Alpha thalassemia; D64.9 Anemia, unspecified; O99.341 Other mental disorders complicating pregnancy, first trimester; F41.8 Other specified anxiety disorders; O99.891 Other specified diseases and conditions complicating pregnancy; O99.321 Drug use complicating pregnancy, first trimester; F12.90 Cannabis use, unspecified, uncomplicated
CPT/HCPCS: 36415; 80048; 80053; 80307; 81003; 81025; 83690; 83735; 84100; 84702; 85025; 87636; 96361; 96374; 96375; 99285; A9270; J1200; J1756; J2405; J2550; J2765; J3410; J3480; J7030; J7040; J7050; J7121

== ENCOUNTER 2023-07-10 15:18 | Outpatient (CLI) | payer OTHER, SELFPAY ==
--- NOTE | ~2023-07-10 | US_ITS ---
CORRECTED REPORT corrected examination description [facility] [place] 07/11/23 This report was recreated on 07/11/23. Original report was GER EXAMINATION: US OB <= 14 weeks fetus w TV DATE: 07/10/2023 16:05 INDICATION: Spotting during first trimester TECHNIQUE: Real-time pelvic ultrasound utilizing both a transvaginal and transabdominal probe was performed. The interpreting radiologist was not present for the study. COMPARISON: None. FINDINGS: The uterus measures 8.3 x 3.5 x 4.2 cm. There is an intrauterine gestational sac in the mid uterine body with double decidual sign but with no evident yolk sac or pole yet apparent likely due to early stage of . The mean sac diameter measures 405 mm which correlates with an estimated gestational age of 5 weeks and 2 days. The right ovary measures 3.4 x 1.2 x 1.6 cm. The left ovary measures 3.3 x 1.6 x 2.1 cm. 1.5 cm thick-walled centrally anechoic corpus luteum cyst in the left ovary. There is no free fluid in the pelvis. IMPRESSION: 1. Single gestational sac slightly more caudal than typical in the mid uterine body with no discernible yolk sac or pole likely due to early stage of . 2. Gestational age by ultrasound based on 4-5 mm mean sac diameter of 5 weeks 2 day(s) +/- 3 day(s) with ultrasound estimated date of delivery (VINICIO) of 03/09/2024. Reviewed, dictated and finalized at location A. GER MTDD IMPRESSION: 1. Single gestational sac slightly more caudal than typical in the mid uterine body with no discernible yolk sac or pole likely due to early stage of pr egnancy. 2. Gestational age by ultrasound based on 4-5 mm mean sac diameter of 5 weeks 2 day(s) +/- 3 day(s) with ultrasound estimated date of delivery (VINICIO) of 2023.
== END 2023-07-10 15:19 | disposition home or self-care (01) ==
PROVIDERS: PCP Physician Assistant; Visit Provider Obstetrics & Gynecology Gynecology
DX: O26.851 Spotting complicating pregnancy, first trimester (principal); Z3A.01 Less than 8 weeks gestation of pregnancy
CPT/HCPCS: 76801; 76817

== ENCOUNTER 2023-07-15 15:23 | Outpatient (RCR) | payer OTHER, SELFPAY | END 2023-10-10 23:59 | disposition home or self-care (01) | LOC: ANHLAB 15:23 | PROVIDERS: PCP Physician Assistant; Visit Provider Advanced Practice Midwife | DX: O26.851 Spotting complicating pregnancy, first trimester (principal); Z3A.00 Weeks of gestation of pregnancy not specified | CPT/HCPCS: 36415; 84702 ==

== ENCOUNTER 2023-07-18 13:48 | Outpatient (CLI) | payer OTHER, SELFPAY ==
--- NOTE | ~2023-07-18 | US_ITS ---
EXAMINATION: US OB <=14 wk fetus w TV DATE: 07/18/2023 15:06 INDICATION: First trimester with prior intrauterine TECHNIQUE: Real-time pelvic ultrasound utilizing transvaginal probe was performed. The interpreting r adiologist was not present for the study. COMPARISON: 07/10/2023 FINDINGS: The uterus measures 6.3 x 3.6 x 4.6 cm. The endometrial complex measures 7 mm in thickness. The prev iously seen intrauterine gestational sac is no longer visualized consistent with likely failed pregna ncy. The right ovary measures 2.5 x 1.2 x 1.1 cm. The left ovary measures 3.0 x 1.5 x 1.6 cm. There are a few subcentimeter anechoic cysts/follicles in both ovaries. Gastric flow identified in both ovaries o n color Doppler. There is no free fluid in the pelvis. IMPRESSION: 1. Previously seen intrauterine gestational sac is no longer visualized consistent with interval fail ure of . Reviewed, dictated and finalized at location A. [employer] IMPRESSION: 1. Previously seen intrauterine gestational sac is no longer visualized consist ent with interval failure of .
== END 2023-07-18 13:49 | disposition home or self-care (01) ==
PROVIDERS: PCP Physician Assistant; Visit Provider Obstetrics & Gynecology Gynecology
DX: O36.80X0 Pregnancy with inconclusive fetal viability, not applicable or unspecified (principal); Z3A.00 Weeks of gestation of pregnancy not specified
CPT/HCPCS: 76801; 76817

== ENCOUNTER 2023-10-30 16:12 | Emergency (ER) | payer OTHER, SELFPAY ==
[2023-10-30 16:22] VITALS: BP 112/70; PULSE 84; RESP 16; TEMP 36.7; O2SAT 100
--- NOTE | 2023-10-30 16:47 | ED.FEMALEGU ---
HPI - Female Genitourinary General Chief complaint: Urogenital-Female Stated complaint: kidney infection lower back pain Time Seen by Provider: 10/30/23 16:40 Source: patient and RN notes reviewed Mode of arrival: ambulatory Limitations: no limitations History of Present Illness HPI Narrative: Patient presents today complaining of a 2 day history of urinary urgency, frequency, dysuria. Today she started having some low back pain, diarrhea, and fever up to 99.6. She took some azo at 7:45 a.m. this morning, which did help with some symptoms. No recent antibiotic use. Related Data Home Medications Medication Instructions Recorded Confirmed famotidine 20 mg tablet 20 mg PO BID 10/26/21 10/30/23 sertraline 100 mg tablet 100 mg PO QAM 04/03/23 10/30/23 Allergies Allergy/AdvReac Type Severity Reaction Status Date / Time adhesive tape Allergy Redness of Verified 10/30/23 16:17 Skin Review of Systems Review of Systems: CONSTITUTIONAL: Denies body aches, chills, or sweats.+ fever EYES: Denies visual changes, redness, or discharge. ENT: Denies rhinorrhea, congestion, sore throat, or otalgia. CARDIOVASCULAR: Denies chest pain, palpitations, or edema. RESPIRATORY: Denies cough or dyspnea. GASTROINTESTINAL: Denies abdominal pain, nausea, vomiting. + diarrhea GENITOURINARY: + urgency, frequency, dysuria. SKIN: Denies rash, itching, or wounds. MUSCULOSKELETAL: Denies joint pain, or myalgia.+ low back pain NEUROLOGIC: Denies headache, numbness, tingling, or weakness. PSYCH: Denies depression or anxiety. [facility] Past Medical History Medical History Alpha-thalassemia Anxiety and depression Eczema Gastritis IBS (irritable bowel syndrome) IUFD (intrauterine ) October 2022 38 week demise 7lb 5oz Lumbago Psoriasiform dermatitis Surgical History Surgical History No history of previous surgery Family History Family History Father Cerebrovascular accident Depression Hypertension Other Family history of arthritis Family history of mental disorder Social History Social History Years smoked: 1 Smoking status: Current every day smoker Tobacco type: e-cigarettes/vaping Second hand tobacco smoke exposure: Yes Alcohol intake: never Drinks per week: 4 Substance use: current Substance use type: marijuana Other substance usage details: DECREASING Last use: 07/03/2023 Do You Feel Safe in your Home?: Yes Lack of Transportation: No Lack of Food: Never True Current Housing: I Have Housing Concerned About Future Housing: No Difficulty Paying Gas/Electric Bills: No Difficulty Paying for Meds: No Currently Unemployed: No Education: Associate Degree Difficulty w/ Childcare or Family Care: No Gender identity (if verbalized by the patient): Female Spiritual care concerns: No Agree to blood products: Yes Comments Reviewed Exam Narrative: GENERAL: Well-appearing, well-nourished, and in no acute distress. HEAD: Normocephalic, atraumatic. EYES: EOMI. No redness or drainage. Conjunctivae normal. ENT: Mucous membranes pink and moist. NECK: Normal AROM. CHEST: No respiratory distress. Clear to auscultation. HEART: Regular rate and rhythm. No murmur appreciated. Normal peripheral pulses. ABDOMEN: Soft, nondistended, normal active bowel sounds.+ mild suprapubic tenderness.-CVAT EXTREMITIES: Normal range of motion. No edema. SKIN: Warm, dry, no rash. Capillary refill normal. Normal skin turgor. NEURO: No focal deficits. Alert and oriented x3. Gait steady. PSYCH: Normal affect. No signs of depression or anxiety. Course Course Level of Care: Express Care Visit Vital Signs Vital signs: Vital Signs
== END 2023-10-30 16:45 | disposition home or self-care (01) ==
PROVIDERS: Emergency Provider Nurse Practitioner; PCP Physician Assistant
DX: N39.0 Urinary tract infection, site not specified (principal); D56.0 Alpha thalassemia; F41.9 Anxiety disorder, unspecified; F32.A Depression, unspecified; F17.290 Nicotine dependence, other tobacco product, uncomplicated
CPT/HCPCS: 81003; 81025; 87086; 99213; G0463

== ENCOUNTER 2024-05-20 12:54 | Outpatient (CLI) | payer OTHER, SELFPAY ==
--- NOTE | ~2024-05-20 | US_ITS ---
EXAMINATION: US OB transvaginal DATE: 05/20/2024 13:22 INDICATION: Inconclusive viability. . TECHNIQUE: Real-time transvaginal pelvic ultrasound was performed. COMPARISON: None. FINDINGS: The uterus measures 7.8 x 4.6 x 4.9 cm. There is a cyst in the endometrial complex with mean diameter of 9 mm with internal echoes that are indeterminate for a yolk sac. No definite pole is identi fied. The right ovary measures 3.2 x 1.8 x 2.6 cm. The left ovary measures 3.0 x 1.5 x 2.5 cm. There is physiologic free fluid in the pelvis. IMPRESSION: 1. Cyst in the endometrial complex that is indeterminate for a gestational sac. Spontaneous and ectopic are not excluded. Serial beta-hCGs are recommended. Reviewed, dictated and finalized at location A. [facility] IMPRESSION: 1. Cyst in the endometrial complex that is indeterminate for a gestational sac . Spontaneous and ectopic are not excluded. Serial beta-hCGs are recommended.
== END 2024-05-20 12:55 | disposition home or self-care (01) ==
PROVIDERS: PCP Obstetrics & Gynecology Gynecology; Visit Provider Obstetrics & Gynecology Gynecology
DX: O36.80X0 Pregnancy with inconclusive fetal viability, not applicable or unspecified (principal); Z3A.00 Weeks of gestation of pregnancy not specified
CPT/HCPCS: 76817

== ENCOUNTER 2024-06-01 10:23 | Outpatient (CLI) | payer OTHER, SELFPAY ==
--- NOTE | ~2024-06-01 | US_ITS ---
EXAMINATION: US OB transvaginal DATE: 06/01/2024 10:52 INDICATION: Inconclusive viability. TECHNIQUE: Real-time transvaginal pelvic ultrasound was performed. COMPARISON: Ultrasound 05/20/2024 FINDINGS: The uterus measures 9.3 x 5.4 x 5.5 cm. There is an intrauterine gestational sac. A yolk sac is ident ified. The crown rump length measures 0.9 cm, which correlates with an estimated gestational a ge of 6 weeks and 6 day(s) (+/-) 4 day(s). heart motion is identified measuring 113 beats per m inute (bpm) by M-mode Doppler. The right ovary measures 3.2 x 1.8 x 3.6 cm. The left ovary measures 2 .7 x 1.6 x 3.3 cm. There is physiologic free fluid in the pelvis. IMPRESSION: 1. Single living intrauterine gestation with estimated date of delivery of 01/19/2025. Reviewed, dictated and finalized at location A. [employer] IMPRESSION: 1. Single living intrauterine gestation with estimated date of delivery of 01/19.
== END 2024-06-01 10:24 | disposition home or self-care (01) ==
PROVIDERS: PCP Advanced Practice Midwife; Visit Provider Nurse Practitioner Women's Health
DX: O36.80X0 Pregnancy with inconclusive fetal viability, not applicable or unspecified (principal); Z3A.00 Weeks of gestation of pregnancy not specified
CPT/HCPCS: 76817

== ENCOUNTER 2024-12-22 14:43 | Observation (INO) | payer BC, SELFPAY ==
[2024-12-22] VITALS (18 sets, daily range): BP systolic 105; BP diastolic 69; PULSE 92–112; O2SAT 97–100; BMI 26.6
--- OUTSIDE RECORDS SUMMARY | 2024-12-22 14:58 | XMS_ITS | Encounter Summary ---
Author Organization [facility] Address [address] [place] [address] Care Team Providers Care Wrap Turner Name Role Phone Balwinder Osborne MD Primary Care Provider [phone] Encounter Details Date Type Department Care Team (Late st Contact Info) Description 11/13/2022 Lab Requisition [facility] - Pathology Lab [address] [place] [id number] Gamaliel Camacho MD [address] [place] [address] Illness, unspecified Social History Tobacco Use Types Packs/Day Years Used Date Smoking Tobacco: Passive Smo ke Exposure - Never Smoker Alcohol Use Standard Drinks/Week Comments No 0 (1 standard drink = 0.6 oz pur e alcohol) Comments No Sex and Gender Information Value Date Recorded Sex Assigned at Not on file 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 Gender Identity Not on file Sexual Orientation Not on file documented as of this encounter Plan of Treatment Not on file documented as of this encounter Procedures Procedure Name Priority Date/Time Associated Diagnosis Comments PATHOLOGY TISSUE Routine 11/13/2022 4:20 PM CDT Illness, unspecified AUTOPSY ([facility]) Routine 11/13/2022 4:16 PM CDT Illness, unspecified documented in this encounter Results * PATHOLOGY TISSUE (11/13/2022 4:20 PM CDT) Case Report Surgical Pathology Report Case: [id number] Authorizing Provider: Gamaliel Camacho MD Collected: 11/13/2022 04:20 PM Ordering Location: [facility] Pathology Lab Received: 11/13/2022 04:21 PM Pathologist: Cory Hurst MD Specimen: Placenta 3rd Trimester 03/22/2023 4:45 PM CDT [facility] Final Diagnosis Placenta, 38 weeks of gestational age, delivery: - Third trimester placenta, weight 509 g (NE 409 g to 589 g). - -placental weight ratio 6.4 (NE 6.9, SD 1.1) - Features of vascular malperfusion, focal - Ectasia of vasculature 03/22/2023 4:45 PM CDT [facility] at 1645 CDT Microscopic Description and Comment The microscopic description substantiates the final diagnosis. 03/22/2023 4:45 PM CDT [facility] Clinical History 03/22/2023 4:45 PM CDT [facility] Gross Description Received fresh for gross and microscopic examination labeled Celia Durbin and Placenta and cord is a magaña placenta with attached and detatched cord segments and attached membranes. The placenta measures 19.8 x 18.8 x 3.1 cm and weighs 509.6 g trimmed and partially fixed. The umbilical cord is dark red-purple, dusky, received in three parts with an aggregate measurement of 94.2 cm in length x 2.6 cm in diameter. The cord has a complete tight knot located 49.2 cm from the disc surface. The cord has large clots in the vessels on the side furthest from the disc, (after the knot). The attachment is central, 6.0 cm from the edge. The attached membranes are pink, opaque and have a marginal attachment. The surface is red blue with the expected vascular distribution in relationship with the cord. The maternal surface has intact cotyledons with a spongy red cut surface. No infarcts or lesions are grossly evident. Sections are submitted as follows: A1- membranes and cord closest to disc, A2-cord with clot on the other side of the knot, A3-A6 full thickness sections of disc. 03/22/2023 4:45 PM CDT [facility] Pathologist Location at [facility] 03/22/2023 4:45 PM CDT [facility] Disclaimer The performance characteristics of all immunohistochemical and indirect immunofluorescence stains (if any) cited in this report were determined by the Histopathology Laboratory of [facility]. Some of these tests were developed by our own laboratory and have not been cleared or approved by the US Food and Drug Administration. The FDA does not require this test to go through premarket FDA review. These tests are used for clinical purposes. They should not be regarded as investigational or for research. This laboratory is certified under the Clinical Laboratory Improvement Amendments (CLIA) as qualified to perform high complexity clinical laboratory testing. This case has been personally reviewed and interpreted by the attending (teaching) pathologist. 03/22/2023 4:45 PM CDT [facility] Embedded Images 03/22/2023 4:45 PM CDT [facility] Pathology/Cytolo gy ENTIRE PLACENTA / Unknown 11/13/2022 4:20 PM CDT 11/13/2022 4:21 PM CDT Gamaliel Camacho MD LAB - PATHOLOGY/CYTOLOGY ORDERAB LES Final Result [facility] [address] [place] [address], [facility] [phone] * AUTOPSY ([facility]) (11/13/2022 4:16 PM CDT) Case Report Autopsy Report Case: [id number] Authorizing Provider: Gamaliel Camacho MD Ordering Provider: Gamaliel Camacho MD Ordering Location: [facility] Care Pathology Lab Pathologist: Cory Hurst MD Specimen: Autopsy 4:47 PM CDT [facility] FINAL ANATOMIC DIAGNOSES Umbilical cord abnormalities with abnormal placental findings Thigh true umbilical cord, at 49 cm from disc insertion. Features of Vascular Malperfusion, focal Ectasia of vasculature 2. 38 week intrauterine demise infant girl. Well developed, well-nourished baby girl appropriate for gestational age. a. Growth Parameters and Weights: Weight: 3260 G, NE 2603 G, 88th percentile [place]el Length: 55.3 cm, NE 47 cm, 97th percentile [place]-Rump Length: 38.1 cm, NE 33.6 cm, 92nd percentile Chest Circumference: 31.6 cm, NE 31.1 cm, 62nd percentile Abdominal Circumference: 26.7 Foot Length: 7.3 cm, 50th percentile Brain weight: 410 g, NE 340 g, 94th percentile Kidney combined weight: 27.60 g, NE 23.9 g, 71st percentile Head circumference: 32.6 cm, NE 33.1 cm, 38th percentile 3. Internal organs with moderate to advance autolysis. 4. No evidence of congenital malformations or intrauterine infection. Comment: The most important autopsy findings in this case are in the umbilical cord and placenta. The umbilical cord showed a tight, true knot with associated abnormal findings in the placental disc consistent with vascular malperfusion. True umbilical knots are known to predispose the fetus to stasis-induced vascular ectasia and thrombosis, therefore leading to vascular obstruction in the placenta with adverse outcome. 3 4:47 PM CDT [facility] at 1647 CDT Clinical History Celia Durbin is a 26 year old female, G1-38 week, 5 day with no documented issues noted in the Medical Record at [facility] in [place], [place]. According to her medical record, she has a history of Alpha-thalassemia, which was within normal limits in , Irritable Bowel Syndrome, was a current someday cigarette smoker, used alcohol, 4 drinks per week and used marijuana during , (tested positive on 11/07/2022). According to her OB note, she presented to the labor unit at [facility] on 11/07/2022 with reports of no movement x 2 days. She was induced and Baby Girl Celia Durbin was born post induction on 11/08/2022 at 09:33 weighing 7 pounds, 5 ounces with apgars of 0/0/0. The cord contained 3 vessels, a Nuchal Cord (x2) and a tight True Knot. An autopsy on Baby Girl Celia Hanks was requested by her parents Celia Durbin and Mario Hanks. This autopsy is non restricted and is performed on 11/14/2022 at 11:30. Photographs: Full body, frontal, posterior and lateral, close up face, frontal and lateral, hands Radiographs: Anterior 3 4:47 PM CDT [facility] EXTERNAL EXAMINATION Normal expected (NE) values are based on mean value for 38 weeks of gestational age one standard deviation. Development: appropriate for gestational age Weight: 3260 g, NE: 2603 g, [place]-Heel Length: 55.3 cm, NE: 47 cm [place]-Rump Length: 38.1 cm, NE: 33.6 cm Head Circumference: 32.6 cm, NE: 33.1 cm Chest Circumference: 31.6 cm, NE: 31.1 cm Abdominal Circumference: 26.7 cm Foot Length: 7.3 cm Palpebral Fissure Length: 1.2 x 1.2 cm Intercanthal Length: 0.5 cm Rigor Mortis: None Livor Mortis: anterior abdomen, lower extremities, posterior body Jaundice: None Facies: Normal Nasal Passages: Patent Ears: Unremarkable Ext. Auditory Canals: Patent Sclerae: White Pupils: Cannot evaluate Irides: Cannot evaluate Fontanelles: Sutures are displaceable Lips: Dry Teeth: Non-erupted Teeth: None Gums: Unremarkable Tongue: Unremarkable Palate: Intact Hair: Brown NECK Nodes: None palpable Trachea: Midline Thyroid Gland: Not palpable THORAX Symmetry: Symmetrical CCJ: No beading Breasts: Normal ABDOMEN Fluid: No fluid wave Organs: No palpable organomegaly Umbilicus: 4.5 x 1.1 cm segment of dark red umbilical cord, distal 4 cm hemorrhagic Anus: Patent GENITALIA Female Labia: Normal SKELETON Straight, normal EXTREMITIES Subcutaneous edema on left arm and bilateral hand dorsum, skin slippage on dorsum of left foot OTHER: Vernix Caseosa, inguinal areas Skin slippage left flank, thigh, buttocks, posterior arms Fine hair upper back and arms 3 4:47 PM CDT [facility] EVIDENCE OF MEDICAL CARE 3 4:47 PM CDT [facility] INTERNAL EXAMINATION CAVITIES Primary Incision: Y-shaped thoracoabdominal Panniculus Adiposus: 0.25 cm Muscle: Red-brown PERITONEAL CAVITY Fluid: None Adhesions: None Surfaces: Smooth Situs: Solitus Diaphragm: Intact bilaterally Liver Position: RAAL: 1.5 cm RMCL: 4 cm ML: 5.0 cm LMCL: 2.5 cm Spleen: Above left costal margin Urinary Bladder: At the pubic symphysis Stomach: Non-distended Vermiform Appendix: Right lower quadrant Mesenteric Root: Unremarkable in radius and attachment PLEURAL CAVITIES Right and Left:: Unremarkable Fluid: None Adhesions: None Surfaces: Smooth MEDIASTINUM Thymus: Lobular pink-red Weight: 8.42 g, NE: 9.61 g Veins: Unremarkable Arteries: Unremarkable Lymph Nodes: Not prominent PERICARDIUM Fluid: None Surfaces: Smooth Adhesions: None NECK ORGANS Tongue: Normal Larynx: Unremarkable Trachea: Patent, no tracheoesophageal fistula Vocal Folds: Unremarkable Thyroid Gland: [place]-foreman Parathyroid Glands: Not identified LUNGS Combined Weight: 54.28 g, NE: 48.4 g Pleura: Smooth; normal lobation Color: [place]-red Consistency: Rubbery Crepitance: None Bronchi: Unremarkable Vessels: Unremarkable HEART Weight: 17.62 g NE: 18.6 g Tricuspid Valve: 3.2 cm Pulmonic Valve: 1.3 cm Mitral Valve: 2.7 cm Aortic Valve: 2.0 cm Wall Thickness Left Ventricle: 4 mm Right Ventricle: 4 mm Ductus Arteriosus: Patent Foramen Ovale: Patent, valve-competent Endocardium: Smooth Myocardium: [place]-foreman Epicardium: No significant fat Valves: Unremarkable Pulmonary Arteries, Veins: Unremarkable with normal return configuration Coronary Arteries: Unremarkable Coronary Sinus: Non-dilated Aorta: Left arch Main Branches: Unremarkable arborization ALIMENTARY TRACT Pharynx: Unremarkable Esophagus: Smooth, pink-white mucosa Stomach: Filled with scant fluid Ampulla of Vater: Patent Small Intestine: Slightly dusky Vermiform Appendix: Unremarkable, 3.5 x 0.4 cm Large Intestine: Slightly dusky Mesentery: Dusky LIVER Weight: 122.09 g, NE: 116 g Appearance: red Ductus Venosus: Patent, somewhat deflated Portal Veins: Unremarkable GALLBLADDER AND BILE DUCTS Size: Normal, 2.7 0.7 cm Contents: Red viscous bile Emeka;e Ducts: Patent PANCREAS Weight: 1.19 g, NE: 3.04 g Color: Red Size: Unremarkable Consistency: Autolized ADRENAL GLANDS Weight: 5.95 g combined, NE: 7.01 g Color: Red-orange Shape: Pyramidal Consistency: Soft Cut Surface: Medullary autolysis KIDNEYS Combined Weight: 27.6 g, NE: 23.9 g Capsules: lobulation Cortices: Red, 0.3 cm thick Pelves: Non-dilated Renal Arteries: Patent Ureters: Patent, Non-distended URINARY BLADDER Contents: Clear urine Wall: Unremarkable Mucosa: Smooth, white-foreman Orifices: Patent INTERNAL GENITALIA Female: Ovaries: Unremarkable Fallopian Tubes: Unremarkable Uterus: Unremarkable Vagina: Unremarkable SPLEEN Weight: 7.42 g, NE: 9.15 g Color: Burgundy red Shape: Lenticular Consistency: Soft LYMPH NODES Mediastinal, Mesenteric: Not prominent VENA CAVA Clots/Thrombi/Air: None SKELETON Ribs, Vertebrae, Iliac Bones, Sternum: Unremarkable ossification for stated gestational age SKULL Primary Incision: Bitemporal [id number] Symmetry: Yes Sutures: Displaceable Fontanelles: Open Epidural Space: No blood or exudate Subarachnoid Space: No blood or exudate Brain Weight: 197 g NE: 158-224 g The brain shows normal development for gestation al age. The leptomeninges were congested. The brain stem is within normal limits. The brain is cut after fixation and shows moderate maceration with no evidence of gross malformations, purulent exudate or hemorrhage. Degree of maceration precludes further histopathological examination. Spinal Cord: Unremarkable Pituitary: Unremarkable PLACENTA [facility] Weight 500 g, NE 432 g, 90th percentile 17.6 x 16.5 x 3.o cm Umbilical cord length: 94.2 cm, 99th percentile Tight true knot in cord 49.2 cm from disc insertion Double nuchal cord noted at delivery* *Per delivery note by Jeannine Olivo CNM 10/29/2022, 10:09 SLIDE NGUYỄN A1 Right heart A2 Left heart A3 Right upper lobe lung A4 Right middle lobe lung A5 Right lower lobe lung A6 Left upper lobe lung A7 Left lower lobe lung A8 Trachea, umbilical cord A9 Diaphragm, aorta, bladder A10 Kidneys, left ureter A11 Thyroid, larynx, vocal cords A12 Spleen, thymus A13 Liver A14 Pancreas, mesentery, potential lymph nodes A15 Fallopian tubes, ovaries, uterus, cervix A16 Adrenal glands A17 Gallbladder, small bowel, appendix, colon A18 Esophagus, gastroesophageal junction, pylorus A19 Muscle, skin A20 Ribs, spine post decalcificatioin 3 4:47 PM [facility] Microscopic Description A1, A2. Heart Psychiatric Orderly sections of the right and left heart shows myocardium with moderate autolysis. Preserved myocardium shows normal cytoarchitecture with no evidence of hypertrophy. Congested epicardial vessels and focal recent hemorrhages are seen. A3 - A7 Lungs Psychiatric Orderly sections of both lungs show well-developed alveolar architecture with marked congestion and desquamated epithelial cells in alveolar spaces. There is no evidence of acute inflammation or vascular changes (hypertensive changes) A8 Psychiatric Orderly section of the trachea shows no histopathological abnormalities. A abrasives sales representative section of the umbilical cord shows no significant histopathological changes. A9 Sections of the aorta, diaphragm and aorta show no significant histopathological changes. A10 Psychiatric Orderly sections of the kidneys show autolysis with preserved architecture and developed glomeruli. A11 Psychiatric Orderly sections of the thyroid, larynx and vocal cords show autolysis with no significant histopathological changes. A12 - A13 Psychiatric Orderly sections of the spleen, thymus and liver shows extensive autolysis precluding further evaluation. A14 Psychiatric Orderly sections of the pancreas, and mesentery show extensive autolysis of the pancreas. Several lymph nodes show no significant histopathological changes. A15 Fallopian tubes, ovaries, uterus, cervix Psychiatric Orderly sections of the Fallopian tubes, ovaries, uterus and cervix show no histopathological abnormalities. A16 Adrenal glands Microscopic examination of the adrenal glands show extensive autolysis. A17 - A18 GI tract Sections of abrasives sales representative organs of the gastrointestinal tract shows no abnormalities. A19-A20 Microscopic examination of the musculoskeletal tissue is within normal limits. Placental and umbilical cord diagnosis ([id number]) Placenta, 38 weeks of gestational age, delivery: - Third trimester placenta, weight 509 g (NE 409 g to 589 g). - -placental weight ratio 6.4 (NE 6.9, SD 1.1) - Features of vascular malperfusion, focal - Ectasia of vasculature 3 4:47 PM [facility] CLINICOPATHOLOGIC CORRELATION See comment. 3 4:47 PM [facility] Embedded Images 3 4:47 PM [facility] Date of Autopsy 3 4:47 PM [facility] Pathologist Location at [facility] 4:47 PM CDT [facility] Comment:This is an appended report. These results have been appended to a previously preliminary verified report. Pathology/Cytolo gy AUTOPSY EXAMINATION / Unknown 11/13/2022 4:16 PM CDT 11/13/2022 4:18 PM CDT Narrative [facility] - 03/22/2023 4:47 PM CDT A previously reported component PROVISIONAL ANATOMIC DIAGNOSIS is no longer reported. Gamaliel Camacho MD LAB - PATHOLOGY/CYTOLOGY ORDERAB LES Final Result [facility] [address] [phone] documented in this encounter Visit Diagnoses Diagnosis Illness, unspecified documented in this encounter Care Teams Wrap Turner Relationship Specialty Start Date End Date Balwinder Osborne MD [address] [place] [address] PCP - General 03/19/11 documented as of this encounter
--- OUTSIDE RECORDS SUMMARY | 2024-12-22 14:58 | XMS_ITS | Clinical Summary ---
Author Organization [facility] Address [address] [place] [address] Phone Care Team Providers Care Dredgemaster Name Role Phone Unavailable Primary Care Provider Unavailabl e Immunizations Immunization Administration Dates Next Due (INFANRIX)(6 WKS-6 YRS) DIPT HERIA, TETANUS TOXOIDS, AND ACCELLULAR PERTUSSIS VACCINE (DTAP), 0.5 ML IM 05/21/2003,05/23/1999,05/26/1998,1997,01/21/1998 (IPOL)(6 WKS AND UP) POLIOVI AFIA VACCINE, INACTIVATED (IPV), 3 DOSE, SUBCUT OR IM 05/21/2003,05/23/1999,03/24/1998,1997 (M-M-R II/PRIORIX)(12 MO UP) MEASLES, MUMPS AND RUBELLA VIRUS VACCINE, 0.5 ML IM/SUBCUT 05/21/2003,02/21/1999 (PFIZER)(12 YR UP) COVID-19 VACCINE - EMERGENCY USE AUTHORIZATION, MRNA, [id number](PF) 30 MCG/0.3 ML IM SUSP 11/01/2020,10/10/2020 (VARIVAX)(12 MOS UP)VARICELL A VIRUS VACCINE (PF) 0.5 ML, SUB CUT 03/02/2001 HIB, Unspecified Formulation 05/21/2003, 05/23/1999,05/26/1998,1997,01/21/1998 Hepatitis B Vaccine 03/24/1998,01/21/1998,1997 Social History Tobacco Use Types Packs/Day Years Used Date Smoking Tobacco: Never Assessed Comments Unknown Sex and Gender Information Value Date Recorded Sex Assigned at Not on file 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
--- OUTSIDE RECORDS SUMMARY | 2024-12-22 14:58 | XMS_ITS | Data Portability ---
Author Organization [facility] Address [address] [place] [address] Care Team Providers Care Board Worker Name Role Phone SHEILA MARTINS Primary Care Provider [phone] Assessment Encounter Date Assessment Date Assessment LastModified by Organization Details LastModified Time 12/16/2024 12/16/2024 Patient is ___weeks . Discussed plan. [email or web address] Not available 12/16/2024 17:33:37 Plan of Treatment Reminders Order Date Submit Date Provider Last Modified By Organization Details Last Modified Time Details Appointments U/S OB BPP 2024 03:30P M ULTRASOUND Not available Not available Not available NST 2024 04:00P M NST SCHEDULE Not available Not available Not available OB ROUTINE 2024 04:45P M Salvador Grullon CNM Not available Not available Not available INDUCTI ON 2024 05:00A M Salvador Grullon CNM Not available Not available Not available U/S OB BPP 2024 03:30P M ULTRASOUND Not available Not available Not available NST 2024 04:00P M NST SCHEDULE Not available Not available Not available OB ROUTINE 2024 04:45P M Salvador Grullon CNM Not available Not available Not available U/S OB BPP 2024 03:30P M ULTRASOUND Not available Not available Not available NST 2024 04:00P M NST SCHEDULE Not available Not available Not available OB ROUTINE 2024 04:45P M Salvador Grullon CNM Not available Not available Not available U/S OB BPP 2024 03:30P M ULTRASOUND Not available Not available Not available NST 2024 04:00P M NST SCHEDULE Not available Not available Not available OB ROUTINE 2024 04:30P M Salvador Grullon CNM Not available Not available Not available U/S OB BPP 2024 03:30P M ULTRASOUND Not available Not available Not available NST 2024 04:00P M NST SCHEDULE Not available Not available Not available OB ROUTINE 2024 04:30P M Salvador Grullon, CNM Not available Not available Not available Lab None recorde d. Referral None recorde d. Procedures None recorde d. Surgeries None recorde d. Imaging non-str ess test 2024 025 susanna [address], [address], [place], [address], 12/17/2024 00:11:15 US, obstetr ic, biophys ical profile + non-str ess test 2024 [address], [address], [place], [address], 12/18/2024 22:15:55 non-str ess test 2024 [address], [address], [place], [address], 12/11/2024 08:08:23 US, [facility] ic, biophys ical profile + non-str ess test [address] [facility] [address], [place], [address], 12/10/2024 22:54:00 Medication Orders None recorde d. Patient TargetsNo targets recorded. Patient InstructionsNo instructions recorded. Reason for Referral None Reported. Results Created Date Observation Date Name Description Value Unit Range Abnormal Flag Note LastModifiedBy Organization Detail LastModifiedTime 05/30/20 25 11/13/2024 GTT - GESTA NEGRA L, 3 HOUR, ACOG OB glucose, fasting (GTT) CANCEL LED Unabl e to Obtai n Speci men Not Available [facility] (Lab) [address], [place], [address], 11/16/2024 16:19:58 11/14/19 25 11/13/2024 GTT - GESTA NEGRA L, 3 HOUR, ACOG OB glucose, GTT 1HR CANCEL LED Unabl e to Obtai n Speci men Not Available [facility] (Lab) [address], [place], [address], 11/16/2024 16:19:58 11/14/19 25 11/13/2024 GTT - GESTA NEGRA L, 3 HOUR, ACOG -glucose,2 hour (GTT) CANCEL LED Unabl e to Obtai n Speci men Not Available [facility] (Lab) [address], [place], [address], 11/16/2024 16:19:58 11/14/19 25 11/13/2024 GTT - GESTA NEGRA L, 3 HOUR, ACOG -glucose, GTT 3HR CANCEL LED Unabl e to Obtai n Speci men Not Available [facility] (Lab) [address] [place], [address], 11/16/2024 16:19:58 11/26/19 25 11/25/2024 US, obste tric, bioph ysica l profi le + non-s tress test No observ ation record ed. [email or web address] [place] [address], [place], [address], 11/25/2024 18:29:46 11/26/19 25 11/25/2024 US, obste tric, bioph ysica l profi le + non-s tress test No observ ation record ed. [email or web address] [address] [facility], [place], [address], 11/28/2024 20:40:03 11/26/19 25 11/25/2024 non-s tress test No observ ation record ed. [email or web address] [place] [address], [place], [address], 11/25/2024 19:22:52 11/26/19 non-s tress test No observ ation record ed. [email or web address] [place] [address], [place], [address], 11/25/2024 19:24:49 12/03/19 25 12/02/2024 US, obste tric, follo w-up No observ ation record ed. [email or web address] [place] [address], [place], [address], 12/02/2024 18:44:02 12/03/19 25 12/02/2024 US, obste tric, follo w-up No observ ation record ed. [email or web address] [address] [facility], [place], [address], 12/03/2024 11:55:59 12/06/19 25 12/02/2024 non-s tress test No observ ation record ed. [place] [address], [place], [address], 12/05/2024 08:46:49 12/08/19 25 12/02/2024 non-s tress test No observ ation record ed. [email or web address] [place] [address], [place], [address], 12/07/2024 11:47:01 12/10/19 25 12/09/2024 US, obstelpidio tric, bioph ysica l profi le + non-s tress test No observ ation record ed. [email or web address] [address], [place], [address], 12/09/2024 17:51:15 12/10/1912/09/2024 US, obste tric, bioph ysica l profi le + non-s tress test No observ ation record ed. [email or web address] [address], [place], [address], 12/09/2024 20:55:22 12/11/1912/10/2024 non-s tress test No observ ation record ed. [email or web address] [place] [address], [place], [address], 12/10/2024 15:10:46 12/17/19 25 12/16/2024 US, obste tric, bioph ysica l profi le + non-s tress test No observ ation record ed. [email or web address] [place] [address], [place], [address], 12/16/2024 17:49:00 12/17/1912/16/2024 US, obste tric, bioph ysica l profi le + non-s tress test No observ ation record ed. [email or web address] [address], [place], [address], 12/21/2024 15:26:33 12/17/19 25 12/16/2024 non-s tress test No observ ation record ed. [email or web address] [place] [address], [place], [address], 12/16/2024 18:50:42 Result Notes None recorded. Problems Name Problem SNOMED Code Status Onset Date Resolution Date Notes Provider Name and Address Organization Details Recorded Time Mixed anxiety and depressi ve disorder 478867303 Active 2024 Shaista Frankel [facility], [place] - [facility] 09:45:01 Insomnia 777290608 Active 2024 Shaista Jostin urrutia, [facility] 09:45:10 Pregnanc y 13840434 Active 2024 Shaista Jostin urrutia, [facility] 17:16:41 Stillbir th 406150611 Active 37 weeks, true knot CAN x 2 Salvador Grullon CNM [address], [place], [address], [facility] 17:25:30 Depressi ve disorder 48438274 Active sertralin e 50mg seroquel 50 mg Salvador Grullon CNM [address], [place], [address], [facility] 17:25:57 Nausea and vomiting 80784002 Active reglan Salvador Grullon CNM [address], [place], [address], [facility] 17:27:42 Past pregnanc y history of intraute rine 11839043958 129030 Active 2024 Shaista urrutia, [facility] 20:49:18 Glucose toleranc e test outside referenc e range 194213755 Active 2024 patient vomited will need need to check blood sugar for 2 weeks supply sent out to pharmacy. Advised that would send informati on about check blood sugars and diet informati on. Advised would call out supply to pharmacy and we would follow up on blood sugars Shaista Jostin urrutia, [facility] 19:15:10 Glucose toleranc e test outside referenc e range 684908212 Active 2024 patient vomited will need need to check blood sugar for 2 weeks supply sent out to pharmacy. Advised that would send informati on about check blood sugars and diet informati on. Advised would call out supply to pharmacy and we would follow up on blood sugars Shaista Frankel [facility] 5 19:15:10 Problem Notes None recorded. Procedures Surgical History Date Name Laterality Status Provider Name and Address Organization Details Recorded Time 4 Date of Last [facility] 17:20:12 9 extraction of wisdom tooth completed Shaistachristel Frankel [facility] 07/22/2024 20:46:25 1 procedure on upper arm completed [facility] Frankel [facility] 07/22/2024 20:46:17 Imaging Results None recorded. Procedure Notes None recorded. Medical Equipment None Reported. Allergies Allergen ID Allergen Name Allergen Category Reaction Reaction Severity Criticality Documentation Date Start Date Code Code System Note Provider Name and Address Organization Details Recorded Time 85423 adhesive environme nt,medica tion Not available Not available Not available 07/22/2024 [id number] UNK Shaista Frankel [facility] 5 09:44:16 Medications Name Sig Start Date Stop Date Status Note LastModified by Organization Details LastModified Time buspirone 5 mg tablet 5 mg twice a day by oral route. 2024 active Not Available Not Available Not Avai lable sertraline 100 mg tablet TAKE 1 TABLET BY MOUTH EVERY DAY active Not Available Not Available No t Available hydroxyzine HCl 50 mg tablet TAKE 1 TABLET BY MOUTH AT BEDTIME active Not Available Not Available No t Available metoclopram misha 5 mg tablet TAKE 1 TABLET BY MOUTH EVERY 6 HOURS NEEDED FOR NAUSEA AND VOMITING 08/14 completed Not Available Not Available Not Available cephalexin 500 mg capsule 500 MG ORALLY EVERY 6 HOURS FOR 7 DAYS 07/22 completed Not Available Not Available Not Available pantoprazol e 40 mg tablet,odalis yed release TAKE 1 TABLET BY MOUTH EVERY DAY active Not Available Not Available No t Available promethazin e 25 mg tablet TAKE 1 TABLET BY MOUTH EVERY 6 HOURS NEEDED 02/28 /2025 completed Not Available Not Available Not Available hydroxyzine HCl 25 mg tablet TAKE 1 TABLET 3 TIMES A DAY NEEDED 10/07 completed Not Available Not Available Not Available Microlet Lancet TESTING 4 TIMES A DAY active Not Available Not Available No t Available metoclopram misha 10 mg tablet TAKE 1 TABLET BY MOUTH EVERY 6 HOURS NEEDED 11/05 completed Not Available Not Available Not Available quetiapine 50 mg tablet TAKE 1 TABLET BY MOUTH EVERY DAY active Not Available Not Available No t Available Bonjesta 20 mg-20 mg tablet,imme diate and delay release TAKE 1 TABLET BY MOUTH AT BEDTIME 11/05 completed Not Available Not Available Not Available Contour Plus Test Strip TESTING 4 TIMES A DAY active Not Available Not Available No t Available Contour Plus Blue Meter TESTING BLOOD SUGARS 4 TIMES A DAY active Not Available Not Available No t Available Vitals Date Recorded Body height Body mass index (BMI) Body weight Systolic And Diastolic Provider Name and Address Organization Details Last Updated DateTime 12/09/2024 160.66 cm 26 kg/m2 26628.67 g 105/73 mm[Hg] Libby Webb [facility] 12/09/2024 17:30:04 Date Recorded Body weight Systolic And Diastolic Provider Name and Address Organization Details Last Updated DateTime 12/16/2024 29214.61356 g 114/80 mm[Hg] Heydi Rome [facility] 12/16/2024 17:34:24 Social History Question Answer Notes LastModified by Organizat ion Details LastModified Time Tobacco Smoking Status Former Smoker Shaista urrutia, [facility] 07/22/2024 20:47:07 Do You Have An Advance Directive? No Information not available 08/14/2024 If You Are , What Was Your Level Of Alcohol Consumption Prior To ? Occasional [email or web address] Information not available 07/22/2024 Are You Blind Or Do You Have Difficulty Seeing? No [email or web address] Information not available 07/22/2024 What Is Your Level Of Caffeine Consumption? Moderate [email or web address] Information not available 07/22/2024 How Much Tobacco Do You Chew? None [email or web address] Information not available 08/14/2024 In The 14 Days Before Symptom Onset, Have You Had Close Contact With A Laboratory-confir med COVID-19 While That Case Was Ill? No Information not available 07/22/2024 In The 14 Days Before Symptom Onset, Have You Had Close Contact With A Person Who Is Under Investigation For COVID-19 While That Person Was Ill? No [email or web address] Information not available 07/22/2024 Have You Been To An Area Known To Be High Risk For COVID-19? No [email or web address] Information not available 07/22/2024 Are You Deaf Or Do You Have Serious Difficulty Hearing? No [email or web address] Information not available 07/22/2024 What Type Of Diet Are You Following? REGULAR Information not available 07/22/2024 What Is The Highest Grade Or Level Of School You Have Completed Or The Highest Degree You Have Received? [id number] [email or web address] Information not available 08/14/2024 Are There Any Guns Present In Your Home? No [email or web address] Information not available 08/14/2024 Do You Use Protection During Sex? No [email or web address] Information not available 08/14/2024 Do You Use Your Seat Belt Or Car Seat Routinely? Yes [email or web address] Information not available 07/22/2024 Are You Sexually Active? Yes [email or web address] Information not available 07/22/2024 Do You Have Smoke And Carbon Monoxide Detectors In Your Home? Yes Information not available 07/22/2024 At What Age Did You Start Smoking Tobacco? 18 [email or web address] Information not available 08/14/2024 How Much Tobacco Do You Smoke? No [email or web address] Information not available 08/14/2024 Do You Use Sunscreen Routinely? No [email or web address] Information not available 08/14/2024 Has Tobacco Cessation Counseling Been Provided? No Information not available 07/22/2024 Have You Used IV Drugs? No [email or web address] Information not available 07/22/2024 Do You Have Difficulty Walking Or Climbing Stairs? No [email or web address] Information not available 07/22/2024 Sex: Unknown Functional Status Question Answer Note LastModified by Organizat ion Details LastModified Time Do you use any illicit or recreational drugs? Yes THC [email or web address] Information not available 07/22/2024 Do you or have you ever used any other forms of tobacco or nicotine? Yes [email or web address] Information not available 07/22/2024 What is your level of alcohol consumption? None [email or web address] Information not available 07/22/2024 Are you able to walk? [email or web address] Information not available 07/22/2024 Are you able to care for yourself? 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 No [email or web address] Information not available 07/22/2024 Do you or have you ever used e-cigarettes or vape? Current user of electronic cigarettes [email or web address] Information not available 07/22/2024 What is your exercise level? Occasional [email or web address] Information not available 07/22/2024 Mental Status Question Answer Note LastModified by Organization D etails LastModified Time Do you feel stressed (tense, restless, nervous, or anxious, or unable to sleep at night)? [id number] [email or web address] Information not available 08/14/2024 Family History Relationship Description Onset Age of this Age Resolved Age Notes LastModified by Organization Details LastModified Time Mother Anemia [email or web address] Not available 07/22/2024 17:23:53 Father Hypercholest erolemia [email or web address] Not available 07/22 17:24:20 Father Mental disorder [email or web address] Not available 07/22 17:24:58 Maternal Aunt Diabetes mellitus [email or web address] Not available 07/22 17:24:30 Medical History Condition Response Allergies (Food, seasonal, environmental ) N Other Y Drug/Latex Allergies/Reactions Y Breast Cancer N Blood Transfusion N Lung Disease N Dermatologic Disorders N Defects or Inherited Disease Y Breast Problem N Gestational Diabetes N Hematologic disorders N Anesthesia Complications N History of STI N Deep Vein Thrombosis N Polycystic ovary syndrome N Anxiety Disorder Y Autoimmune disease N Arthritis N Polyps N Infertility N History of abnormal pap N Acid Reflux (GERD) N Cancer N Varicosities N Stroke N Neurologic/Epilepsy Y Endometriosis N High Cholesterol N Headaches N Fibromyalgia N Kidney Disease N Heart Problems N Thyroid Problems N Kidney or Bladder Problems N GI Problems N Eating Disorder N Anemia N Art (IVF or FET) N Psychiatric Illness N Ovarian Cancer N Diabetes N Pulmonary (TB, Asthma) N Hepatitis/Liver Disease N No Past Medical History N Eczema N Urinary Tract Infection N Abuse/Domestic Violence N Asthma N Trauma/Violence N Depression/ depression Y Heart Disease N Pre-Eclampsia N Hypertension N Osteoporosis N Thrombophilias N Gynecological History Statement/Question Response Abnormal Pap N Date of Last Mammogram Date of LMP 04/10/2024 N STIs/STDs N Was last menstrual period normal Y Current Control Method Age at First Child 26 Date of Last Colonoscopy Sexually Active? Y Date of DEXA bone scan Date of Last Pap Smear 05/17/2024 Sexual Problems? N LMP Approximate N Obstetrics History GPAL:G 3 P 1 0 1 0 Type Value Full Term 1 Spontaneous 1 Living 0 Total 3 Past Encounters Encounter ID Performer Location Encounter Start Date Encounter Closed Date Diagnosis/Indication Diagnosis SNOMED-CT Code Diagnosis ICD10 Code Diagnosis Note [id number] Douglas Rosario MD [place] [address] [address] 07/21/2024 12:31:51 07/21/2024 13:53:03 screening 903789346 Z36.82 Z3A.14 [id number] Salvador Grullon [facility] [address],[place] [address] 07/22/2024 09:11:15 07/22/2024 17:54:54 Gestation period, 14 weeks 15208788 Z3A.14 [id number] Salvador Grullon [facility] [address],[place] [address] 08/14/2024 15:04:05 08/14/2024 15:55:23 Gestation period, 17 weeks 07525168 Z3A.17 Anxiety in 980 6263437 9109 F41.9 [id number] Douglas Rosario MD [place] [address],[place] [address] 09/04/2024 14:16:59 09/04/2024 15:48:28 screening for malformation 234419969 Z36.3 Z3A.20 [id number] Salvador Grullon CNM [place] [address],[place] [address] 09/04/2024 14:18:04 09/04/2024 16:08:02 Gestation period, 20 weeks 92147496 Z3A.20 Insomnia 281186031 G47.0 0 [id number] Douglas Rosario MD [place] [address],[place] [address] 10/07/2024 15:54:22 10/07/2024 16:58:12 Finding related to [id number] Z03.72 Z3A.25 [id number] Salvador Grullon CNM [place] [address],[place] [address] 10/07/2024 15:54:33 10/08/2024 07:35:29 Gestation period, 25 weeks 55104200 Z3A.25 continue vitamin [id number] Douglas Rosario MD [place] [address],[place] [address] 11/05/2024 13:58:04 11/05/2024 14:50:42 care: obstetric risk 813372631 O09.293 Z3A.29 [id number] Douglas Rosario MD [place] [address],[place] [address] 11/05/2024 13:58:23 11/05/2024 15:22:45 care status 221217751 Z34.83 [id number] Douglas Rosario MD [place] [address],[place] [address] 11/25/2024 14:33:16 11/25/2024 15:09:42 care: obstetric risk 196352600 O09.293 Z3A.32 [id number] Salvador Grullon CNM [place] [address] [place] [address] 11/25/2024 14:33:28 11/26/2024 09:07:18 High risk 40377039 O09.293 [id number] FADI CohenM [place] [address],[place] [address] 11/25/2024 14:33:39 11/25/2024 16:37:33 Gestation period, 32 weeks 3682962 Z3A.32 cont pnv Gastroesop hageal reflux disease 314700506 K21.9 Nausea and vomiting 1693 1999 R11.2 [id number] Douglas Rosario MD [place] [address],[place] [address] 12/02/2024 15:32:07 12/02/2024 16:16:33 care: obstetric risk 983647554 O09.293 Z3A.33 [id number] Salvador Grullon [facility] [address],[place] [address] 12/02/2024 15:32:20 12/06/2024 19:47:45 Past history of intrauterine 9856715151 [id number] O09.299 [id number] Salvador Grullon [facility] [address],[place] [address] 12/02/2024 15:32:34 12/03/2024 23:52:47 Gestation period, 33 weeks 38666049 Z3A.33 [id number] Douglas Rosario MD [place] [address],[place] [address] 12/09/2024 15:55:11 12/09/2024 17:03:02 care: obstetric risk 918872305 O09.293 Z3A.34 [id number] Salvador Grullon [facility] [address],[place] [address] 12/09/2024 15:56:10 12/10/2024 15:27:56 Past history of with abortive outcome 776481275 Z87.59 [id number] Salvador Grullon [facility] [address],[place] [address] 12/09/2024 15:56:21 12/10/2024 09:13:49 Gestation period, 34 weeks 17949284 Z3A.34 [id number] Douglas Rosario MD [place] [address] [address] 12/16/2024 15:57:51 12/16/2024 16:46:45 care: obstetric risk 999630933 O09.293 Z3A.35 [id number] [facility] [address] [address] 12/16/2024 16:00:26 12/17/2024 05:44:44 Past history of with abortive outcome 104766735 Z87.59 [id number] Salvador Grullon [facility] [address],[place] [address] 12/16/2024 16:00:36 12/16/2024 17:55:27 Gestation period, 35 weeks 40829064 Z3A.35 Health Concerns Section Related Observation LastModified by Organization Detai ls LastModified Time None Recorded Concern Status LastModified by Organization Details LastModified Time None Recorded Advance Directives Directive N: Payers Insurance Date Sequence Insurance Name Policy Number Policy Marie Covered Member ID Marie Member ID Guarantor Name 12/16/2024 1 Devi Durbin [id number] 2 Celia Durbin 12/16/2024 1 [employer] [id number] Celia Durbin [id number] Celia Durbin 12/16/2024 [place] [facility]ID Celia Durbin [id number] Celia Durbin 10/07/2024 1 *SELF PAY* Kendall Durbin 12/16/2024 1 [place] [facility] AID Celia Durbin [id number] Celia Durbin 12/16/2024 1 *SELF PAY* Kendall Durbin 12/16/2024 [facility] [place] (MEDICAID REPLACEMENT - HMO) Celia Durbin [id number] Celia Durbin OBGyn Episode Ob Episode Information Episode Created Date Number of Fetuses Patient Bloodtype Patient rh Status Prepregnancy Weight lbs Domestic Partner Domestic Partner Phone Father Name Supervisor Education Status 07/22/19 25 1 CLOSED Fetus Data First Name Last Name Admitted to NICU Weight (g) Sex Living Outcome Pediatric Complications Fetus ID Race Codes Race Delivery Type 3316.66 4704 F Demise [id number] Vaginal Delivery Dante Calculation Initial Dante Date Initial Exam Date Initial Exam Provider Initial Ultrasound Date Last Menstrual Period Date Ultra Sound Weeks Gestation 0 Eighteen To Twenty Week Dante Update Ultra Sound Date Fundal Height At Umbil Quickening Date Ultra Sound Latest Weeks Gestation Final Dante Confirmed By Final Dante Confirmed Date Final Dante Date Ultra Sound Latest Days Gestation 0 0 Menstrual History Last Menstrual Date Menses Monthly On Bcp Conception Prior Menses Frequency Hcg Plus Date Menarche Onset Age Delivery Information Delivery Date Delivery Type Labor Anesthesia Weeks Gestation Incision Type Labor Labor Length Hrs Delivered By Post Complications Tubal Sterilization Discharge Date Comments 3 39.4 ANTHONY / demised Discharge Information Feeding Method Contraceptive Method Maternal HG B and HCT Levels Ob Episode Information Episode Created Date Number of Fetuses Patient Bloodtype Patient rh Status Prepregnancy Weight lbs Domestic Partner Domestic Partner Phone Father Name Supervisor Education Status 07/22/19 1 A Positive 122 Mario Hanks OPEN Fetus Data First Name Last Name Admitted to NICU Weight (g) Sex Living Outcome Pediatric Complications Fetus ID Race Codes Race Delivery Type [id number] Problems Problem Notes vapes occasionallyTHC-rec ce ssation+alpha thalassemia carrier screen -baby low risk Problem Name Start Date End Date Resolution Snomed Code Not e Glucose tolerance test outside reference range 11/13/2024 [id number] patient vomi whitney will need need to check blood sugar for 2 weeks supply sent out to pharmacy. Advised that would send information about check blood sugars and diet information. Advised would call out supply to pharmacy and we would follow up on blood sugars Nausea and vomiting [id number] reglan Stillbirth [id number] 37 weeks, true knot CAN x 2 Depressive disorder [id number] sertraline 50mgseroquel 50 mg Dante Calculation Initial Dante Date Initial Exam Date Initial Exam Provider Initial Ultrasound Date Last Menstrual Period Date Ultra Sound Weeks Gestation 01/15/2025 07/22/2024 salvador grullon 07/21/2024 04/10/2024 14 Eighteen To Twenty Week Dante Update Ultra Sound Date Fundal Height At Umbil Quickening Date Ultra Sound Latest Weeks Gestation Final Dante Confirmed By Final Dante Confirmed Date Final Dante Date Ultra Sound Latest Days Gestation 0 01/20/20 25 0 Pre- Flowsheet Flowsheet Date 07/22/2024 [place] Score Blood Edema Fundus Height Fundus Units Glucose Ketones Leukocytes Nitrite Labor Signs Protein Cervic Dilation Cervic Effacement Cervic Station neg none none trace Type Weight in lbs Pre/Post Dialysis Refused Weight 122.328656699256 BP Diastolic BP Location Tested BP Systolic BP Type 70 114 Fetus Heart Rate Present Fetus Movement A Yes Comments hx full term loss at 37 week s , true knot and CAN x 2, rec bASA dailydeclines mfm would give too much anxiety, ok per dr. lesliedepression continue medication. will plan testing thrid trimester, desires 37 week IOL, precautions and education, begin care labs and NIPT today, f/u 3 weeks Flowsheet Date 08/14/2024 [place] Score Blood Edema Fundus Height Fundus Units Glucose Ketones Leukocytes Nitrite Labor Signs Protein Cervic Dilation Cervic Effacement Cervic Station neg none Type Weight in lbs Pre/Post Dialysis Refused 120.905670720396 BP Diastolic BP Location Tested BP Systolic BP Type 73 116 Fetus Heart Rate Present A 151 Present Fetus Movement A Yes Comments Patient is having insomnia, anxiety, depression, discharge, nausea and vomiting. pt not feeling well mentally, quit job, no suicidal thoughts, just not wanting to go anywhere or do anything, reveiwed with dr. leslie and will try hydroxyzine for sleep, refer to [facility] for early next week, if any suicidal thoughts to LD, anatomy scheduled in 3 weeks Flowsheet Date 09/04/2024 [place] Score Blood Edema Fundus Height Fundus Units Glucose Ketones Leukocytes Nitrite Labor Signs Protein Cervic Dilation Cervic Effacement Cervic Station Type Weight in lbs Pre/Post Dialysis Refused BP Diastolic BP Location Tested BP Systolic BP Type Fetus Heart Rate Present Fetus Movement Comments Flowsheet Date 09/04/2024 [place] Score Blood Edema Fundus Height Fundus Units Glucose Ketones Leukocytes Nitrite Labor Signs Protein Cervic Dilation Cervic Effacement Cervic Station neg none Type Weight in lbs Pre/Post Dialysis Refused 128.243858033949 BP Diastolic BP Location Tested BP Systolic BP Type 73 113 Fetus Heart Rate Present Fetus Movement A Yes Comments Patient is having some disch arge, nausea and vomiting. sleeping better,rpt us , consider mfm for delivery rec, would like 37 week IOL, needs hydroxyzine refill, seeing [facility] and mood is improving plan f/u in 4 weeks. anatomy complete Flowsheet Date 10/07/2024 [place] Score Blood Edema Fundus Height Fundus Units Glucose Ketones Leukocytes Nitrite Labor Signs Protein Cervic Dilation Cervic Effacement Cervic Station Type Weight in lbs Pre/Post Dialysis Refused BP Diastolic BP Location Tested BP Systolic BP Type Fetus Heart Rate Present Fetus Movement Comments Flowsheet Date 10/07/2024 [place] Score Blood Edema Fundus Height Fundus Units Glucose Ketones Leukocytes Nitrite Labor Signs Protein Cervic Dilation Cervic Effacement Cervic Station neg none Type Weight in lbs Pre/Post Dialysis Refused 136.060406317913 BP Diastolic BP Location Tested BP Systolic BP Type 71 112 Fetus Heart Rate Present Fetus Movement A Yes Comments Patient is having some heada ches, BH contractions, discharge, nausea and vomiting. reviewed education and precautions, plan GCT at next visit. reviewed US efw 33% f/u 4 weeks, +FM, sleeping well mood better Flowsheet Date 11/05/2024 [place] Score Blood Edema Fundus Height Fundus Units Glucose Ketones Leukocytes Nitrite Labor Signs Protein Cervic Dilation Cervic Effacement Cervic Station Type Weight in lbs Pre/Post Dialysis Refused BP Diastolic BP Location Tested BP Systolic BP Type Fetus Heart Rate Present Fetus Movement Comments Flowsheet Date 11/05/2024 [place] Score Blood Edema Fundus Height Fundus Units Glucose Ketones Leukocytes Nitrite Labor Signs Protein Cervic Dilation Cervic Effacement Cervic Station Type Weight in lbs Pre/Post Dialysis Refused 143.887522805538 BP Diastolic BP Location Tested BP Systolic BP Type 85 L arm 119 sitting Fetus Heart Rate Present A 145 Fetus Movement A Yes Comments no complaints, no problems, routine care, no contractions, no vaginal bleeding, no loss of fluid, no cramping. Flowsheet Date 11/25/2024 [place] Score Blood Edema Fundus Height Fundus Units Glucose Ketones Leukocytes Nitrite Labor Signs Protein Cervic Dilation Cervic Effacement Cervic Station Type Weight in lbs Pre/Post Dialysis Refused BP Diastolic BP Location Tested BP Systolic BP Type Fetus Heart Rate Present Fetus Movement Comments Flowsheet Date 11/25/2024 [place] Score Blood Edema Fundus Height Fundus Units Glucose Ketones Leukocytes Nitrite Labor Signs Protein Cervic Dilation Cervic Effacement Cervic Station Type Weight in lbs Pre/Post Dialysis Refused Weight 144.28906252545 BP Diastolic BP Location Tested BP Systolic BP Type 67 101 Fetus Heart Rate Present Fetus Movement Comments Flowsheet Date 11/25/2024 [place] Score Blood Edema Fundus Height Fundus Units Glucose Ketones Leukocytes Nitrite Labor Signs Protein Cervic Dilation Cervic Effacement Cervic Station neg none Type Weight in lbs Pre/Post Dialysis Refused 144.132556939574 BP Diastolic BP Location Tested BP Systolic BP Type 67 101 Fetus Heart Rate Present Fetus Movement A Yes Comments Patient is having contractio ns, heartburn, and discharge. bpp 03/26 doing well +FM, rx protonix IOL 12/29 or 12/30, will schedule next visit, call for preadmit f/u one week Flowsheet Date 12/02/2024 [place] Score Blood Edema Fundus Height Fundus Units Glucose Ketones Leukocytes Nitrite Labor Signs Protein Cervic Dilation Cervic Effacement Cervic Station Type Weight in lbs Pre/Post Dialysis Refused BP Diastolic BP Location Tested BP Systolic BP Type Fetus Heart Rate Present Fetus Movement Comments Flowsheet Date 12/02/2024 [place] Score Blood Edema Fundus Height Fundus Units Glucose Ketones Leukocytes Nitrite Labor Signs Protein Cervic Dilation Cervic Effacement Cervic Station Type Weight in lbs Pre/Post Dialysis Refused Weight 147.119430617153 BP Diastolic BP Location Tested BP Systolic BP Type 74 106 Fetus Heart Rate Present Fetus Movement Comments Flowsheet Date 12/02/2024 [place] Score Blood Edema Fundus Height Fundus Units Glucose Ketones Leukocytes Nitrite Labor Signs Protein Cervic Dilation Cervic Effacement Cervic Station neg none Type Weight in lbs Pre/Post Dialysis Refused 147.334424951986 BP Diastolic BP Location Tested BP Systolic BP Type 74 106 Fetus Heart Rate Present Fetus Movement A Yes Comments Patient is having some pain, contractions and discharge. reviewed bs all wnl, cont x 2 weeks and will review, schedule iol 37 weeks, bpp 03/26 plan gbs at 35 weks, precautions and education +FM,mood good Flowsheet Date 12/09/2024 [place] Score Blood Edema Fundus Height Fundus Units Glucose Ketones Leukocytes Nitrite Labor Signs Protein Cervic Dilation Cervic Effacement Cervic Station Type Weight in lbs Pre/Post Dialysis Refused BP Diastolic BP Location Tested BP Systolic BP Type Fetus Heart Rate Present Fetus Movement Comments Flowsheet Date 12/09/2024 [place] Score Blood Edema Fundus Height Fundus Units Glucose Ketones Leukocytes Nitrite Labor Signs Protein Cervic Dilation Cervic Effacement Cervic Station Type Weight in lbs Pre/Post Dialysis Refused BP Diastolic BP Location Tested BP Systolic BP Type Fetus Heart Rate Present Fetus Movement Comments Flowsheet Date 12/09/2024 [place] Score Blood Edema Fundus Height Fundus Units Glucose Ketones Leukocytes Nitrite Labor Signs Protein Cervic Dilation Cervic Effacement Cervic Station Type Weight in lbs Pre/Post Dialysis Refused Weight 148.919038466171 BP Diastolic BP Location Tested BP Systolic BP Type 73 L arm 105 sitting Fetus Heart Rate Present Fetus Movement Comments bpp 10/10, +FM doing well, w ill bring plan next visit precautions and education Flowsheet Date 12/16/2024 [place] Score Blood Edema Fundus Height Fundus Units Glucose Ketones Leukocytes Nitrite Labor Signs Protein Cervic Dilation Cervic Effacement Cervic Station Type Weight in lbs Pre/Post Dialysis Refused BP Diastolic BP Location Tested BP Systolic BP Type Fetus Heart Rate Present Fetus Movement Comments Flowsheet Date 12/16/2024 [place] Score Blood Edema Fundus Height Fundus Units Glucose Ketones Leukocytes Nitrite Labor Signs Protein Cervic Dilation Cervic Effacement Cervic Station Type Weight in lbs Pre/Post Dialysis Refused BP Diastolic BP Location Tested BP Systolic BP Type Fetus Heart Rate Present Fetus Movement Comments Flowsheet Date 12/16/2024 [place] Score Blood Edema Fundus Height Fundus Units Glucose Ketones Leukocytes Nitrite Labor Signs Protein Cervic Dilation Cervic Effacement Cervic Station Type Weight in lbs Pre/Post Dialysis Refused 148.191757306354 BP Diastolic BP Location Tested BP Systolic BP Type 80 L arm 114 sitting Fetus Heart Rate Present Fetus Movement A Yes Comments doing well BPP 10/10 +FM, re viewed education and precautions cervix almost 1, soft. GBS collected f/u one week Menstrual History Last Menstrual Date Menses Monthly On Bcp Conception Prior Menses Frequency Hcg Plus Date Menarche Onset Age 1004/10/2024 Delivery Information Delivery Date Delivery Type Labor Anesthesia Weeks Gestation Incision Type Labor Labor Length Hrs Delivered By Post Complications Tubal Sterilization Discharge Date Comments Discharge Information Feeding Method Contraceptive Method Maternal HG B and HCT Levels Ob Episode Information Episode Created Date Number of Fetuses Patient Bloodtype Patient rh Status Prepregnancy Weight lbs Domestic Partner Domestic Partner Phone Father Name Supervisor Education Status 07/22/19 25 1 CLOSED Fetus Data First Name Last Name Admitted to NICU Weight (g) Sex Living Outcome Pediatric Complications Fetus ID Race Codes Race Delivery Type , [place] o[place] [id number] Dante Calculation Initial Dante Date Initial Exam Date Initial Exam Provider Initial Ultrasound Date Last Menstrual Period Date Ultra Sound Weeks Gestation 0 Eighteen To Twenty Week Dante Update Ultra Sound Date Fundal Height At Umbil Quickening Date Ultra Sound Latest Weeks Gestation Final Dante Confirmed By Final Dante Confirmed Date Final Dante Date Ultra Sound Latest Days Gestation 0 0 Menstrual History Last Menstrual Date Menses Monthly On Bcp Conception Prior Menses Frequency Hcg Plus Date Menarche Onset Age Delivery Information Delivery Date Delivery Type Labor Anesthesia Weeks Gestation Incision Type Labor Labor Length Hrs Delivered By Post Complications Tubal Sterilization Discharge Date Comments 4 Discharge Information Feeding Method Contraceptive Method Maternal HG B and HCT Levels
--- OUTSIDE RECORDS SUMMARY | 2024-12-22 14:58 | XMS_ITS | Encounter Summary ---
Author Organization [facility] Address [address] [place] [address] Care Team Providers Care Oil Dipper Name Role Phone Unavailable Primary Care Provider Unavailabl e Encounter Details Date Type Department Care Team (Late st Contact Info) Description 06/01/2004 Outpatient Historical [facility] [address] [place] [address] James Pelaez Emeka, DO [address] [place] [address] Social History Tobacco Use Types Packs/Day Years Used Date Smoking Tobacco: Never Assessed Comments Unknown Sex and Gender Information Value Date Recorded Sex Assigned at Not on file Legal Sex Female 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
--- OUTSIDE RECORDS SUMMARY | 2024-12-22 14:58 | XMS_ITS | Encounter Summary ---
Author Organization [facility] Address [address] [place] [address] Care Team Providers Care Hearing Aid Consultant Name Role Phone Unavailable Primary Care Provider Unavailabl e Encounter Details Date Type Department Care Team (Late st Contact Info) Description 05/21/2003 Outpatient Historical [facility] [address] [place] [address] James Pelaez Emeka, DO [address] [place] [address] Social History Tobacco Use Types Packs/Day Years Used Date Smoking Tobacco: Never Assessed Comments Unknown Sex and Gender Information Value Date Recorded Sex Assigned at Not on file Legal Sex Female 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
--- OUTSIDE RECORDS SUMMARY | 2024-12-22 14:58 | XMS_ITS | Clinical Summary ---
Author Organization [facility] Address [address] [place] [address] Care Team Providers Care Railway Switch Operator Name Role Phone Balwinder Osborne MD Primary Care Provider Source Comments [facility],non-owned Affiliates and Associated Physician Practices is amultiple site organization consisting of ambulatory clinics and hospital sitesin [place], [place], [place] and [place]. This disclosure is being madepursuant to the Care Everywhere program and may not contain all information available regarding this patient. Last updated 18.[facility] Allergies Active Allergy Reactions Criticality Noted Date Comments Gluten Meal 06/22/2015 Per patient and father Lactose GI Discomfort 09/19/2015 Medications * Be aware that medications may not be up to date on this document. Alwaysverify current medications with the patient. norethindrone-eth inyl estradiol (LOESTRIN 1.5/30) 1.5-30 MG-MCG tablet Take 1 Tab by mouth once daily BCP Active betamethasone dipropionate (DIPROSONE) 0.05 % creamIndications: Psoriasis Apply to affected area 2 times daily Reasons: Psoriasis Active Active Problems Problem Noted Date Diagnosed Date Adolescent idiopathic scoliosis 06/20/2015 Low back pain 06/20/2015 Removal of pin, plate, vickie, or screw 09/15/2012 Galeadaliai's fracture of right radius 04/02/2011 Overview (04/02/2011): Celia was taken by Dr. Robertson to there OR for ORIF of the right radius and closed reduction of the DRUJ joint on 04/02/2011. Chronic midline low back pain without sciatica Family History Medical History Relation Name Comments Migraine Other Anesthesia Reaction Neg Hx Relation Name Status Comments Other Social History Tobacco Use Types Packs/Day Years Used Date Smoking Tobacco: Passive Smo ke Exposure - Never Smoker Alcohol Use Standard Drinks/Week Comments No 0 (1 standard drink = 0.6 oz pur e alcohol) Comments No Sex and Gender Information Value Date Recorded Sex Assigned at Not on file Legal Sex Female 12:34 PM CO FOUNDER AND CEO Gender Identity Not on file Sexual Orientation Not on file Last Filed Vital Signs Vital Sign Reading Time Taken Comments Blood Pressure 113/64 07/11/2015 1:05 PM CO FOUNDER AND CEO Pulse 72 07/11/2015 1:05 PM CO FOUNDER AND CEO Temperature 36.6 C (97.9 F) 07/11/2015 1:05 PM CO FOUNDER AND CEO Respiratory Rate 12 07/11/2015 1:05 PM CO FOUNDER AND CEO Oxygen Saturation 100% 07/11/2015 1:05 PM CO FOUNDER AND CEO Inhaled Oxygen Concentration - - Weight 47.7 kg (105 lb 2.6 oz) 09/19/2015 9:20 A M CDT Height 162.3 cm (5' 3.9) 09/19/2015 9:20 AM CDT Body Mass Index 18.11 09/19/2015 9:20 AM CDT Plan of Treatment Health Maintenance Due Date Last Done Comments HIV SCREENING 2012 HEPATITIS C SCREENING 11/17/2015 DTAP/TDAP/TD VACCINES (1 - Tdap) 2016 HEPATITIS B VACCINE (1 of 3 - 19+ 3-dose series) 2016 PAP SMEAR 2018 COVID-19 VACCINE (1 - 2023-2 5 season) 2024 DEPRESSION SCREENING 06/17/2024 INFLUENZA VACCINE (Season Ended) 2025 ZOSTER VACCINE (1 of 2) 11/22/2047 HIB VACCINE Aged Out No longer eligi ble based on patient's age to complete this topic HPV VACCINE Aged Out No longer eligi ble based on patient's age to complete this topic MENINGOCOCCAL (Group B) VACC INE SHARED DECISION-MAKING Aged Out No longer eligibl e based on patient's age to complete this topic MENINGOCOCCAL GROUPS A/C/Y/W VACCINE Aged Out No longer eligible b ased on patient's age to complete this topic PNEUMOCOCCAL VACCINE Aged Out No long er eligible based on patient's age to complete this topic Insurance [facility] Care Teams Railway Switch Operator Relationship Specialty Start Date End Date Balwinder Osborne MD [address] [place] [address] PCP - General 03/19/11
--- OUTSIDE RECORDS SUMMARY | 2024-12-22 14:58 | XMS_ITS | Encounter Summary ---
Author Organization [facility] Address [address] [place] [address] Care Team Providers Care Adult Services Librarian Name Role Phone Unavailable Primary Care Provider Unavailabl e Encounter Details Date Type Department Care Team (Late st Contact Info) Description 09/17/2003 Outpatient Historical [facility] Pediatrics [facility] [address] [place] [address] James Pelaez Emeka, DO [address] [place] [address] Social History Tobacco Use Types Packs/Day Years Used Date Smoking Tobacco: Never Assessed Comments Unknown Sex and Gender Information Value Date Recorded Sex Assigned at Not on file Legal Sex Female 3:13 AM COFOUNDER Gender Identity Not on file Sexual Orientation Not on file documented as of this encounter Plan of Treatment Not on file documented as of this encounter Visit Diagnoses Not on filedocumented in this encounter
--- OUTSIDE RECORDS SUMMARY | 2024-12-22 14:58 | XMS_ITS | Encounter Summary ---
Author Organization [facility] Address [address] [place] [address] Care Team Providers Care Svp Research & Ebusiness Operations Name Role Phone Unavailable Primary Care Provider Unavailabl e Encounter Details Date Type Department Care Team (Late st Contact Info) Description 05/02/2004 Outpatient Historical [facility] Pediatrics [facility] [address] [place] [address] James Pelaez Emeka, DO [address] [place] [address] Social History Tobacco Use Types Packs/Day Years Used Date Smoking Tobacco: Never Assessed Comments Unknown Sex and Gender Information Value Date Recorded Sex Assigned at Not on file Legal Sex Female 3:13 AM OPERATIONS TEAM LEADER Gender Identity Not on file Sexual Orientation Not on file documented as of this encounter Plan of Treatment Not on file documented as of this encounter Visit Diagnoses Not on filedocumented in this encounter
--- NOTE | 2024-12-22 15:40 | OBADM ---
This patient, Celia Durbin, admitted to the OB room 117 for observation. Patient/family oriented to hospital policies and general routines including ID bracelet, bed and alarms, visiting hours, pain management, procedures, bathroom and other care routines, personal items, smoking policy, room service/diet, and visiting hours. Patient/Family are encouraged to report perceived risks to care and to ask questions if they do not understand what they are told or what they should do.
[2024-12-22 15:41] LABS: Add Urine Microscopic? YES; Appearance Urine Cloudy (Clear); Glucose Urine UA Negative (Negative); Leukocyte Esterase Ur 1+ LEU/UL (Negative); Need Manual Microscopic Reviewed; Nitrate Urine Negative (Negative); Non Pathogenic Casts 0-2; Specific Grav Ur 1.007 (1.001-1.035)
[2024-12-22] MEDS: CYCLOBENZAPRINE HCL 5 MG TABLET PO (16:01)
--- NOTE | 2024-12-23 07:34 | PM.OBTRLD ---
OB - Triage/Final Diagnosis Visit Information Date of evaluation: 12/22/24 Reason for evaluation: threatened labor Comments/Additional reasons for admission: I have assessed the risk for this patient, Celia Durbin, and determined that she would benefit from observation care. Evaluation Laboratory results: Laboratory Tests 12/22/24 15:21 Urine Color Yellow Urine Appearance Cloudy H Urine pH 6.5 Ur Specific [place] 1.007 Urine Protein Negative Urine Glucose (UA) Negative Urine Ketones Negative Ur Blood (Man) Negative Urine Nitrate Negative Urine Bilirubin Negative Urine Urobilinogen 0.2 Add Ur Microanalysis Reviewed Leukocyte Esterase Rfl 1+ H Urine RBC 0-2 Urine WBC 11-20 H Ur Squamous Epith Cells Many H Urine Bacteria 1+ H Urine Casts 0-2 Vital signs: Vital Signs - 24 hr 12/22/24 15:10 12/22/24 15:15 12/22/24 15:20 Pulse Rate 100 Blood Pressure 105/69 Pulse Oximetry 99 99 99 12/22/24 15:25 12/22/24 15:30 12/22/24 15:35 Pulse Rate Blood Pressure Pulse Oximetry 99 100 99 12/22/24 15:40 12/22/24 15:45 12/22/24 15:50 Pulse Rate Blood Pressure Pulse Oximetry 100 98 99 12/22/24 15:55 12/22/24 16:00 12/22/24 16:05 Pulse Rate Blood Pressure Pulse Oximetry 99 97 98 12/22/24 16:10 12/22/24 16:15 12/22/24 16:20 Pulse Rate Blood Pressure Pulse Oximetry 99 99 98 12/22/24 16:25 12/22/24 16:30 12/22/24 16:35 Pulse Rate Blood Pressure Pulse Oximetry 99 99 99
== END 2024-12-22 16:53 | disposition home or self-care (01) ==
PROVIDERS: Admitting Provider Obstetrics & Gynecology; PCP Advanced Practice Midwife; Visit Provider Obstetrics & Gynecology
DX: O47.03 False labor before 37 completed weeks of gestation, third trimester (principal); Z3A.36 36 weeks gestation of pregnancy
CPT/HCPCS: 81001; A9270; G0378; G0379

== ENCOUNTER 2024-12-29 05:06 | Inpatient (IN) | payer BC, SELFPAY ==
[2024-12-29] VITALS (154 sets, daily range): BP systolic 99–136; BP diastolic 52–94; PULSE 71–135; RESP 18; TEMP 36.8–37.2; O2SAT 95–100; BMI 25.9
--- OUTSIDE RECORDS SUMMARY | 2024-12-29 05:13 | XMS_ITS | Encounter Summary ---
Author Organization [facility] Address [address] [place] [address] Care Team Providers Care Shot Polisher Name Role Phone Unavailable Primary Care Provider Unavailabl e Encounter Details Date Type Department Care Team (Late st Contact Info) Description 06/01/2004 Outpatient Historical [facility] Pediatrics [facility] [address] [place] [address] James Pelaez Emeka, DO [address] [place] [address] Social History Tobacco Use Types Packs/Day Years Used Date Smoking Tobacco: Never Assessed Comments Unknown Sex and Gender Information Value Date Recorded Sex Assigned at Not on file Legal Sex Female 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
--- OUTSIDE RECORDS SUMMARY | 2024-12-29 05:13 | XMS_ITS | Encounter Summary ---
Author Organization [facility] Address [address] [place] [address] Care Team Providers Care Computing Systems Mechanic Name Role Phone Balwinder Osborne MD Primary Care Provider [phone] Encounter Details Date Type Department Care Team (Late st Contact Info) Description 11/13/2022 Lab Requisition [facility] - Pathology Lab [address] [place] [id number] Gamaliel Camacho MD [address] [place] [address] Illness, unspecified Social History Tobacco Use Types Packs/Day Years Used Date Smoking Tobacco: Passive Smo ke Exposure - Never Smoker Alcohol Use Standard Drinks/Week Comments No 0 (1 standard drink = 0.6 oz pur e alcohol) Comments No Sex and Gender Information Value Date Recorded Sex Assigned at Not on file Legal Sex Female 12:34 PM TECH INTERN Gender Identity Not on file Sexual Orientation [...] CDT) Case Report Surgical Pathology Report Case: [id number] Authorizing Provider: Gamaliel Camacho MD Collected: 11/13/2022 04:20 PM Ordering Location: [facility] Pathology Lab Received: 11/13/2022 04:21 PM [...] Ectasia of vasculature 03/22/2023 4:45 PM CDT [facility] at 1645 CDT Microscopic Description and Comment The microscopic description substantiates the final diagnosis. 03/22/2023 4:45 PM CDT [facility] Clinical History 03/22/2023 4:45 PM CDT [facility] Gross Description Received fresh [...] CDT [facility] Pathologist Location at [facility] 03/22/2023 4:45 PM CDT [facility] Disclaimer The performance characteristics of all immunohistochemical and indirect immunofluorescence stains (if any) cited in this report were determined by the Histopathology Laboratory of [facility]. Some of these tests were developed by [...] LAB Embedded Images 03/22/2023 4:45 PM CDT [facility] Pathology/Cytolo gy ENTIRE PLACENTA / Unknown 11/13/2022 4:20 PM CDT 11/13/2022 4:21 PM CDT Gamaliel Camacho MD LAB - PATHOLOGY/CYTOLOGY ORDERAB LES Final Result [facility] [address] [place] [address], [facility] [phone] * AUTOPSY ([facility]) (11/13/2022 4:16 PM CDT) Case Report Autopsy Report Case: [id number] Authorizing Provider: Gamaliel Camacho MD Ordering Provider: Gamaliel Camacho MD Ordering Location: [facility] Care Pathology Lab Pathologist: Cory Hurst MD Specimen: Autopsy 4:47 PM CDT [facility] FINAL ANATOMIC DIAGNOSES Umbilical cord abnormalities with abnormal placental findings Thigh true umbilical cord, at 49 cm from disc insertion. Features of Vascular Malperfusion, focal Ectasia of vasculature 2. 38 week intrauterine demise infant girl. Well developed, well-nourished baby girl appropriate for gestational age. a. Growth Parameters and Weights: Weight: 3260 G, NE 2603 G, 88th percentile Mangum-Heel Length: 55.3 cm, NE 47 cm, 97th percentile Mangum-Rump Length: 38.1 cm, NE 33.6 cm, 92nd [...] issues noted in the Medical Record at [facility] in [place], [place]. According to her medical record, she has a history of Alpha-thalassemia, which was within normal limits in , Irritable Bowel Syndrome, was a current someday cigarette smoker, used alcohol, 4 drinks per week and used marijuana during , (tested positive on 11/07/2022). According to her OB note, she presented to the labor unit at [facility] on 11/07/2022 with reports of no movement [...] age Weight: 3260 g, NE: 2603 g, Mangum-Heel Length: 55.3 cm, NE: 47 cm Mangum-Rump Length: 38.1 cm, NE: 33.6 cm Head [...] tracheoesophageal fistula Vocal Folds: Unremarkable Thyroid Gland: [place]-foreman Parathyroid Glands: Not identified LUNGS Combined Weight: 54.28 g, NE: 48.4 g Pleura: Smooth; normal lobation Color: [place]-red Consistency: Rubbery Crepitance: None Bronchi: Unremarkable Vessels: Unremarkable HEART Weight: 17.62 g NE: 18.6 g Tricuspid Valve: 3.2 cm Pulmonic Valve: 1.3 cm Mitral Valve: 2.7 cm Aortic Valve: 2.0 cm Wall Thickness Left Ventricle: 4 mm Right Ventricle: 4 mm Ductus Arteriosus: Patent Foramen Ovale: Patent, valve-competent Endocardium: Smooth Myocardium: [place]-foreman Epicardium: No significant fat Valves: Unremarkable Pulmonary [...] stated gestational age SKULL Primary Incision: Bitemporal [id number] Symmetry: Yes Sutures: Displaceable Fontanelles: Open Epidural [...] examination. Spinal Cord: Unremarkable Pituitary: Unremarkable PLACENTA [facility] Weight 500 g, NE 432 g, [...] Ribs, spine post decalcificatioin 3 4:47 PM [facility] Microscopic Description A1, A2. Heart Desizing Pad Operator sections of the right and left heart shows myocardium with moderate autolysis. Preserved myocardium shows normal cytoarchitecture with no evidence of hypertrophy. Congested epicardial vessels and focal recent hemorrhages are seen. A3 - A7 Lungs Desizing Pad Operator sections of both lungs show well-developed alveolar architecture with marked congestion and desquamated epithelial cells in alveolar spaces. There is no evidence of acute inflammation or vascular changes (hypertensive changes) A8 Desizing Pad Operator section of the trachea shows no histopathological abnormalities. A accounts receivable representative section of the umbilical cord shows no significant histopathological changes. A9 Sections of the aorta, diaphragm and aorta show no significant histopathological changes. A10 Desizing Pad Operator sections of the kidneys show autolysis with preserved architecture and developed glomeruli. A11 Desizing Pad Operator sections of the thyroid, larynx and vocal cords show autolysis with no significant histopathological changes. A12 - A13 Desizing Pad Operator sections of the spleen, thymus and liver shows extensive autolysis precluding further evaluation. A14 Desizing Pad Operator sections of the pancreas, and mesentery show extensive autolysis of the pancreas. Several lymph nodes show no significant histopathological changes. A15 Fallopian tubes, ovaries, uterus, cervix Desizing Pad Operator sections of the Fallopian tubes, ovaries, uterus and cervix show no histopathological abnormalities. A16 Adrenal glands Microscopic examination of the adrenal glands show extensive autolysis. A17 - A18 GI tract Sections of accounts receivable representative organs of the gastrointestinal tract shows no abnormalities. A19-A20 Microscopic examination of the musculoskeletal tissue is within normal limits. Placental and umbilical cord diagnosis ([id number]) Placenta, 38 weeks of gestational age, delivery: - Third trimester placenta, weight 509 g (NE 409 g to 589 g). - -placental weight ratio 6.4 (NE 6.9, SD 1.1) - Features of vascular malperfusion, focal - Ectasia of vasculature 3 4:47 PM [facility] CLINICOPATHOLOGIC CORRELATION See comment. 3 4:47 PM [facility] Embedded Images 3 4:47 PM [facility] Date of Autopsy 3 4:47 PM [facility] Pathologist Location at [facility] 4:47 PM CDT [facility] Comment:This is an appended report. These results have been appended to a previously preliminary verified report. Pathology/Cytolo gy AUTOPSY EXAMINATION / Unknown 11/13/2022 4:16 PM CDT 11/13/2022 4:18 PM CDT Narrative [facility] - 03/22/2023 4:47 PM CDT A previously reported component PROVISIONAL ANATOMIC DIAGNOSIS is no longer reported. Gamaliel Camacho MD LAB - PATHOLOGY/CYTOLOGY ORDERAB LES Final Result [facility] [address] [phone] documented in this encounter Visit Diagnoses Diagnosis Illness, unspecified documented in this encounter Care Teams Computing Systems Mechanic Relationship Specialty Start Date End Date Balwinder Osborne MD [address] [place] [address] PCP - General 03/19/11 documented as of this encounter
--- OUTSIDE RECORDS SUMMARY | 2024-12-29 05:13 | XMS_ITS | Encounter Summary ---
Author Organization [facility] Address [address] [place] [address] Care Team Providers Care Supervisor Tank House Name Role Phone Unavailable Primary Care Provider Unavailabl e Encounter Details Date Type Department Care Team (Late st Contact Info) Description 05/02/2004 Outpatient Historical [facility] [address] [place] [address] James Pelaez Emeka, DO [address] [place] [address] Social History Tobacco Use Types Packs/Day Years Used Date Smoking Tobacco: Never Assessed Comments Unknown Sex and Gender Information Value Date Recorded Sex Assigned at Not on file Legal Sex Female 3:13 AM RN NEUROSURGICAL Gender Identity Not on file Sexual Orientation Not on file documented as of this encounter Plan of Treatment Not on file documented as of this encounter Visit Diagnoses Not on filedocumented in this encounter
--- OUTSIDE RECORDS SUMMARY | 2024-12-29 05:13 | XMS_ITS | Clinical Summary ---
Author Organization [facility] Address [address] [place] [address] Care Team Providers Care Outside Physical Damage Appraiser Name Role Phone Balwinder Osborne MD Primary Care Provider [phone] Source Comments [facility],non-owned Affiliates and Associated Physician Practices is amultiple site organization consisting of ambulatory clinics and hospital sitesin [place], [place], [place] and [place]. This disclosure is being madepursuant to the Care Everywhere program and may not contain all information available regarding this patient. Last updated 18.[facility] Allergies Active Allergy Reactions Criticality Noted Date [...] on file Legal Sex Female 12:34 PM [employer] Gender Identity Not on file Sexual Orientation Not on file Last Filed Vital Signs Vital Sign Reading Time Taken Comments Blood Pressure 113/64 07/11/2015 1:05 PM [employer] Pulse 72 07/11/2015 1:05 PM [employer] Temperature 36.6 C (97.9 F) 07/11/2015 1:05 PM [employer] Respiratory Rate 12 07/11/2015 1:05 PM [employer] Oxygen Saturation 100% 07/11/2015 1:05 PM [employer] Inhaled Oxygen Concentration - - Weight 47.7 [...] 2023-2 5 season) 2024 DEPRESSION SCREENING 06/17/2024 HPV VACCINE (1 - 3-dose SCDM series) 2024 INFLUENZA VACCINE (#1) 2025 ZOSTER VACCINE (1 of 2) 11/22/2047 [...] patient's age to complete this topic Insurance [facility] Care Teams Outside Physical Damage Appraiser Relationship Specialty Start Date End Date Balwinder Osborne MD [address] [place] [address] PCP - General 03/19/11
--- OUTSIDE RECORDS SUMMARY | 2024-12-29 05:13 | XMS_ITS | Encounter Summary ---
Author Organization [facility] Address [address] [place] [address] Care Team Providers Care Nuclear Waste Process Operator Name Role Phone Unavailable Primary Care Provider Unavailabl e Encounter Details Date Type Department Care Team (Late st Contact Info) Description 09/17/2003 Outpatient Historical [facility] [address] [place] [address] James Pelaez Emeka, DO [address] [place] [address] Social History Tobacco Use Types Packs/Day Years Used Date Smoking Tobacco: Never Assessed Comments Unknown Sex and Gender Information Value Date Recorded Sex Assigned at Not on file Legal Sex Female 3:13 AM CAN SOLDERER Gender Identity Not on file Sexual Orientation Not on file documented as of this encounter Plan of Treatment Not on file documented as of this encounter Visit Diagnoses Not on filedocumented in this encounter
--- OUTSIDE RECORDS SUMMARY | 2024-12-29 05:13 | XMS_ITS | Data Portability ---
Author Organization [facility] [place] Address [address] [place] [address] [place] [address] Care Team Providers Care Video Tape Transferrer Name Role Phone SHEILA MARTINS Primary Care Provider [phone] Assessment Encounter Date Assessment Date Assessment LastModified by Organization Details LastModified Time 12/23/2024 12/23/2024 Patient is ___weeks . Discussed plan. [email or web address] Not available 12/23/2024 17:26:58 Plan of Treatment Reminders Order Date Submit Date Provider Last Modified By Organization Details Last Modified Time Details Appointments INDUCTION 2024 05:00A M Salvador Grullon CNM Not available Not available Not available Lab None recorded. Referral None recorded. Procedures None recorded. Surgeries None recorded. Imaging US, obstetric , follow-up 2024 025 [email or web address] [address], [address], [place], [address], 12/24/2024 20:41:29 US, obstetric , biophysic al profile + non-stres s test 2024 025 [email or web address] [address], [address], [place], [address], 12/24/2024 20:41:29 non-stres s test 2024 025 [email or web address] [address], [address], [place], [address], 12/17/2024 00:11:15 US, obstetric , biophysic al profile + non-stres s test 2024 025 [email or web address] [address], [address], [place], [address], 12/18/2024 22:15:55 Medication Orders None recorded. Patient TargetsNo targets recorded. Patient InstructionsNo instructions recorded. Reason for Referral None Reported. Results Created Date Observation Date Name Description Value Unit Range Abnormal Flag Note LastModifiedBy Organization Detail LastModifiedTime 12/17/1912/16/2024 CULTU RE: GROUP B STREP SCREE N, REFLE X SUSCE PTIBI LITY result report SEE RESULT S BELOW Test: Cultu re: Group B Strep , Refle x Susce ptibi lity ([facility]/ [facility] ) Speci men Sourc e: Vagin a/Rec william Speci men Type: Vagin al/Re ctal Speci men Date: 1729 Resul t Date: 1353 Resul t Statu s: Final resul t Abnor mal: No Resul ting Lab: [facility] [address] [facility] [address] Tel: CULTU RE ----- ----- ----- --- No Group B strep isola whitney at 2 days (estevan ctive broth enhan cemen t) Not Available [facility] (Lab) [address] [facility], [place], [address], 12/19/2024 14:56:15 11/26/19 25 11/25/2024 US, obste tric, bioph ysica l profi le + non-s tress test No observ ation record ed. [email or web address] [address], [place], [address], 11/25/2024 18:29:46 11/26/19 25 11/25/2024 US, obste tric, bioph ysica l profi le + non-s tress test No observ ation record ed. [email or web address] [address], [place], [address], 11/28/2024 20:40:03 11/26/19 25 11/25/2024 non-s tress test No observ ation record ed. [email or web address] [place] [address], [place], [address], 11/25/2024 19:22:52 11/26/19 non-s tress test No observ ation record ed. [email or web address] [place] [address], [place], [address], 11/25/2024 19:24:49 12/03/19 25 12/02/2024 US, obste tric, follo w-up No observ ation record ed. [email or web address] [place] [address], [place], [address], 12/02/2024 18:44:02 12/03/19 25 12/02/2024 US, obste tric, follo w-up No observ ation record ed. [email or web address] [address], [place], [address], 12/03/2024 11:55:59 12/06/1912/02/2024 non-s tress test No observ ation record ed. [email or web address] [place] [address], [place], [address], 12/05/2024 08:46:49 12/08/19 25 12/02/2024 non-s tress test No observ ation record ed. [email or web address] [place] [address], [place], [address], 12/07/2024 11:47:01 12/10/19 25 12/09/2024 US, poonam vasques, bioph ysica l profi le + non-s tress test No observ ation record ed. [email or web address] [place] [address], [place], [address], 12/09/2024 17:51:15 12/10/19 25 12/09/2024 US, obste tric, bioph ysica l profi le + non-s tress test No observ ation record ed. [email or web address] [address], [place], [address], 12/09/2024 20:55:22 12/11/19 25 12/10/2024 non-s tress test No observ ation record ed. [email or web address] [place] [address], [place], [address], 12/10/2024 15:10:46 12/17/19 25 12/16/2024 US, obste tric, bioph ysica l profi le + non-s tress test No observ ation record ed. [email or web address] [place] [address], [place], [address], 12/16/2024 17:49:00 12/17/19 25 12/16/2024 US, obste tric, follo w-up No observ ation record ed. [email or web address] [address], [place], [address], 12/22/2024 22:10:36 12/17/1912/16/2024 non-s tress test No observ ation record ed. [email or web address] [place] [address], [place], [address], 12/16/2024 18:50:42 12/24/19 25 12/23/2024 US, obste tric, follo w-up No observ ation record ed. [email or web address] [place] [address], [place], [address], 12/23/2024 18:13:56 12/24/19 25 12/23/2024 US, obste tric, bioph ysica l profi le + non-s tress test No observ ation record ed. [email or web address] [place] [address], [place], [address], 12/23/2024 18:14:08 12/24/19 25 12/23/2024 US, obste tric, follo w-up No observ ation record ed. [email or web address] [address], [place], [address], 12/25/2024 12:08:46 Result Notes None recorded. Problems Name Problem SNOMED Code Status Onset Date Resolution Date Notes Provider Name and Address Organization Details Recorded Time Mixed anxiety and depressi ve disorder 297014592 Active 2024 Shaista urrutia, [facility] 09:45:01 Insomnia 871250057 Active 2024 Shaista urrutia, [facility] 09:45:10 Pregnanc y 52642183 Active 2024 Shaista urrutia, [facility] 17:16:41 Stillbir th 596136654 Active 37 weeks, true knot CAN x 2 Salvador Grullon CNM [address], [place], [address], [place] [facility] 17:25:30 Depressi ve disorder 74137465 Active sertralin e 50mg seroquel 50 mg Salvador Grullon CNM [address], [place], [address], [place] [facility] 17:25:57 Nausea and vomiting 44331853 Active reglan Salvador Grullon CNM [address], [place], [address], [facility] 17:27:42 Past pregnanc y history of intraute rine 62512699587 151193 Active 2024 Shaista urrutia, [facility] 20:49:18 Glucose toleranc e test outside referenc e range 753511396 Active 2024 patient vomited will need need to check blood sugar for 2 weeks supply sent out to pharmacy. Advised that would send informati on about check blood sugars and diet informati on. Advised would call out supply to pharmacy and we would follow up on blood sugars Shaistachristel urrutia [facility] 19:15:10 Glucose toleranc e test outside referenc e range 024645154 Active 2024 patient vomited will need need to check blood sugar for 2 weeks supply sent out to pharmacy. Advised that would send informati on about check blood sugars and diet informati on. Advised would call out supply to pharmacy and we would follow up on blood sugars Shaista urrutia [facility] 19:15:10 Problem Notes None recorded. Procedures Surgical History Date Name Laterality Status Provider Name and Address Organization Details Recorded Time 4 Date of Last Pap Smear completed Shaista Frankel [facility] 07/22/2024 17:20:12 9 extraction of wisdom tooth completed Shaista Frankel [facility] 07/22/2024 20:46:25 1 procedure on upper arm completed Shaistachristel Frankel [facility] 07/22/2024 20:46:17 Imaging Results None recorded. Procedure Notes None recorded. Medical Equipment None Reported. Allergies Allergen ID Allergen Name Allergen Category Reaction Reaction Severity Criticality Documentation Date Start Date Code Code System Note Provider Name and Address Organization Details Recorded Time 07876 adhesive environme nt,medica tion Not available Not available Not available 07/22/2024 [id number] UNK Shaista Frankel [facility], [facility] 09:44:16 Medications Name Sig Start Date Stop [...] Available Not Available cephalexin 500 mg capsule TAKE 1 CAPSULE BY MOUTH EVERY 12 HOURS FOR UTI FOR 7 DAYS active Not Available Not Available No t Available pantoprazol e 40 mg tablet,odalis yed release TAKE 1 TABLET BY MOUTH EVERY DAY active Not Available Not Available No t Available promethazin e 25 mg tablet TAKE 1 TABLET BY MOUTH EVERY 6 HOURS NEEDED 08/14 completed Not Available Not Available Not Available cephalexin 500 mg tablet Take 1 tablet twice a day by oral route. active Not Available Not Available No t Available hydroxyzine HCl 25 mg tablet TAKE [...] No t Available Vitals Date Recorded Body weight Systolic And Diastolic Provider Name and Address Organization Details Last Updated DateTime 12/16/2024 11599.71436 g 114/80 mm[Hg] Heydi Rome [facility] 12/16/2024 17:34:24 Date Recorded Body weight Systolic And Diastolic Provider Name and Address Organization Details Last Updated DateTime 12/23/2024 57416.8555 g 121/78 mm[Hg] Heydi Rome [facility] 12/23/2024 17:28:30 Social History Question Answer Notes LastModified by Organizat ion Details LastModified Time Tobacco Smoking Status Former Smoker Shaista urrutia, [facility] 07/22/2024 20:47:07 Do You Have An Advance Directive? No [email or web address] Information not available 08/14/2024 If You Are , What Was Your Level Of Alcohol Consumption Prior To ? Occasional [email or web address] Information not available 07/22/2024 Are You Blind Or Do You Have Difficulty Seeing? No [email or web address] Information not available 07/22/2024 What Is Your Level Of Caffeine Consumption? Moderate [email or web address] Information not available 07/22/2024 How Much Tobacco Do You Chew? None [email or web address] Information not available 08/14/2024 In The 14 Days Before Symptom Onset, Have You Had Close Contact With A Laboratory-confir med COVID-19 While That Case Was Ill? No [email or web address] Information not available 07/22/2024 In The 14 Days Before Symptom Onset, Have You Had Close Contact With A Person Who Is Under Investigation For COVID-19 While That Person Was Ill? No [email or web address] Information not available 07/22/2024 Have You Been To An Area Known To Be High Risk For COVID-19? No [email or web address] Information not available 07/22/2024 Are You Deaf Or Do You Have Serious Difficulty Hearing? No [email or web address] Information not available 07/22/2024 What Type Of Diet Are You Following? REGULAR [email or web address] Information not available 07/22/2024 What Is The Highest Grade Or Level Of School You Have Completed Or The Highest Degree You Have Received? [id number] [email or web address] Information not available 08/14/2024 Are There Any Guns Present In Your Home? No [email or web address] Information not available 08/14/2024 Do You Use Protection During Sex? No [email or web address] Information not available 08/14/2024 Do You Use Your Seat Belt Or Car Seat Routinely? Yes [email or web address] Information not available 07/22/2024 Are You Sexually Active? Yes [email or web address] Information not available 07/22/2024 Do You Have Smoke And Carbon Monoxide Detectors In Your Home? Yes [email or web address] Information not available 07/22/2024 At What Age Did You Start Smoking Tobacco? 18 [email or web address] Information not available 08/14/2024 How Much Tobacco Do You Smoke? No [email or web address] Information not available 08/14/2024 Do You Use Sunscreen Routinely? No [email or web address] Information not available 08/14/2024 Has Tobacco Cessation Counseling Been Provided? No [email or web address] Information not available 07/22/2024 Have You Used IV Drugs? No [email or web address] Information not available 07/22/2024 Do You Have Difficulty Walking Or Climbing Stairs? No [email or web address] Information not available 07/22/2024 Sex: Unknown Functional Status Question Answer Note LastModified by Organizat ion Details LastModified Time Do you use any illicit or recreational drugs? Yes THC [email or web address] Information not available 07/22/2024 Do you or have you ever used any other forms of tobacco or nicotine? Yes [email or web address] Information not available 07/22/2024 What is your level of alcohol consumption? None [email or web address] Information not available 07/22/2024 Are you able to walk? YESWOREST Information not available 07/22/2024 Are you able to care for yourself? 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 No Information not available 07/22/2024 Do you or have you ever used e-cigarettes or vape? Current user of electronic cigarettes [email or web address] Information not available 07/22/2024 What is your exercise level? Occasional [email or web address] Information not available 07/22/2024 Mental Status Question Answer Note LastModified by Organization D etails LastModified Time Do you feel stressed (tense, restless, nervous, or anxious, or unable to sleep at night)? [id number] [email or web address] Information not available 08/14/2024 Family History Relationship Description Onset Age of this Age Resolved Age Notes LastModified by Organization Details LastModified Time Mother Anemia [email or web address] Not available 07/22/2024 17:23:53 Father Hypercholest erolemia [email or web address] Not available 07/22 17:24:20 Father Mental disorder [email or web address] Not available 07/22 17:24:58 Maternal Aunt Diabetes mellitus [email or web address] Not available 07/22 17:24:30 Medical History Condition [...] SNOMED-CT Code Diagnosis ICD10 Code Diagnosis Note [id number] Douglas Rosario MD [place] [address] [address] 07/21/2024 12:31:51 07/21/2024 13:53:03 screening 467409067 Z36.82 Z3A.14 [id number] [facility] [address],[place] [address] 07/22/2024 09:11:15 07/22/2024 17:54:54 Gestation period, 14 weeks 22846696 Z3A.14 [id number] [facility] [address],[place] [address] 08/14/2024 15:04:05 08/14/2024 15:55:23 Gestation period, 17 weeks 39884847 Z3A.17 Anxiety in 971 2121459 9109 F41.9 [id number] Douglas Rosario MD [place] [address],[place] [address] 09/04/2024 14:16:59 09/04/2024 15:48:28 screening for malformation 858259947 Z36.3 Z3A.20 [id number] [facility] [address],[place] [address] 09/04/2024 14:18:04 09/04/2024 16:08:02 Gestation period, 20 weeks 84248888 Z3A.20 Insomnia 604598209 G47.0 0 [id number] Douglas Rosario MD [place] [address],[place] [address] 10/07/2024 15:54:22 10/07/2024 16:58:12 Finding related to 200314544 Z03.72 Z3A.25 [id number] [facility] [address] [place] [address] 10/07/2024 15:54:33 10/08/2024 07:35:29 Gestation period, 25 weeks 63688350 Z3A.25 continue vitamin [id number] Douglas Rosario MD [place] [address],[place] [address] 11/05/2024 13:58:04 11/05/2024 14:50:42 care: obstetric risk 184260752 O09.293 Z3A.29 [id number] Douglas Rosario MD [place] [address],[place] [address] 11/05/2024 13:58:23 11/05/2024 15:22:45 care status 552664456 Z34.83 [id number] Douglas Rosario MD [place] [address],[place] [address] 11/25/2024 14:33:16 11/25/2024 15:09:42 care: obstetric risk 226047673 O09.293 Z3A.32 [id number] [facility] [address],[place] [address] 11/25/2024 14:33:28 11/26/2024 09:07:18 High risk 29768601 O09.293 [id number] [facility] [address],[place] [address] 11/25/2024 14:33:39 11/25/2024 16:37:33 Gestation period, 32 weeks 2038262 Z3A.32 cont pnv Gastroesop hageal reflux disease 336548660 K21.9 Nausea and vomiting 1693 1999 R11.2 [id number] Douglas Rosario MD [place] [address],[place] [address] 12/02/2024 15:32:07 12/02/2024 16:16:33 care: obstetric risk 364649412 O09.293 Z3A.33 [id number] Salvador Grullon CNM [place] [address],[place] [address] 12/02/2024 15:32:20 12/06/2024 19:47:45 Past history of intrauterine 9299685498 7446833 O09.299 [id number] Salvador Grullon CNM [place] [address],[place] [address] 12/02/2024 15:32:34 12/03/2024 23:52:47 Gestation period, 33 weeks 91868938 Z3A.33 [id number] Douglas Rosario MD [place] [address],[place] [address] 12/09/2024 15:55:11 12/09/2024 17:03:02 care: obstetric risk 805922622 O09.293 Z3A.34 [id number] Salvador Grullon [facility] [address],[place] [address] 12/09/2024 15:56:10 12/10/2024 15:27:56 Past history of with abortive outcome 558313431 Z87.59 [id number] [facility] [address],[place] [address] 12/09/2024 15:56:21 12/10/2024 09:13:49 Gestation period, 34 weeks 83188033 Z3A.34 [id number] Douglas Rosario MD [place] [address],[place] [address] 12/16/2024 15:57:51 12/16/2024 16:46:45 care: obstetric risk 979896178 O09.293 Z3A.35 [id number] [facility] [address],[place] [address] 12/16/2024 16:00:26 12/17/2024 05:44:44 Past history of with abortive outcome 674667476 Z87.59 [id number] [facility] [address],[place] [address] 12/16/2024 16:00:36 12/16/2024 17:55:27 Gestation period, 35 weeks 74031467 Z3A.35 [id number] Douglas Rosario MD [place] [address],[place] [address] 12/23/2024 16:25:27 12/23/2024 17:25:35 care: obstetric risk 315160865 O09.293 Z3A.36 [id number] Salvador Grullon [facility] [address] [address] 12/23/2024 16:34:36 12/23/2024 17:47:12 Gestation period, 36 weeks 82068691 Z3A.36 Health Concerns Section Related Observation LastModified by Organization Detai ls LastModified Time None Recorded Concern Status LastModified by Organization Details LastModified Time None Recorded Advance Directives Directive N: Payers Insurance Date Sequence Insurance Name Policy Number Policy Marie Covered Member ID Marie Member ID Guarantor Name 12/28/2024 1 [facility] Celia Durbin [id number] Celia Durbin 12/28/2024 1 [facility] Celia Durbin [id number] Celia Gifty 12/28/2024 1 [facility] [id number] Celia Durbin [id number] Celia Gifty 12/28/2024 [place] [facility] Celia Durbin [id number] Celia Durbin 10/07/2024 1 *SELF PAY* Kendall Durbin 12/28/2024 1 [place] [facility] Celia Durbin [id number] Celia Durbin 12/24/2024 1 *SELF PAY* Kendall Durbin 12/28/2024 [facility] (MEDICAID REPLACEMENT - HMO) Celia Durbin [id number] Celia Gifty OBGyn Episode Ob Episode Information Episode Created Date Number of Fetuses Patient Bloodtype Patient rh Status Prepregnancy Weight lbs Domestic Partner Domestic Partner Phone Father Name Farmer Vegetable Status 07/22/19 25 1 CLOSED Fetus Data First Name Last Name Admitted to NICU Weight (g) Sex Living Outcome Pediatric Complications Fetus ID Race Codes Race Delivery Type 3316.66 4704 F Demise 18512 Vaginal Delivery Dante Calculation Initial Dante Date [...] Domestic Partner Domestic Partner Phone Father Name Farmer Vegetable Status 07/22/19 1 A Positive 122 Mario Hanks OPEN Fetus Data First Name Last Name Admitted to NICU Weight (g) Sex Living Outcome Pediatric Complications Fetus ID Race Codes Race Delivery Type [id number] Problems Problem Notes vapes occasionallyTHC-rec ce ssation+alpha thalassemia carrier screen -baby low risk Problem Name Start Date End Date Resolution Snomed Code Not e Glucose tolerance test outside reference range 11/13/2024 040188362 patient vomi whitney will need need to check blood sugar for 2 weeks supply sent out to pharmacy. Advised that would send information about check blood sugars and diet information. Advised would call out supply to pharmacy and we would follow up on blood sugars Nausea and vomiting [id number] reglan Stillbirth [id number] 37 weeks, true knot CAN x 2 Depressive disorder 66664859 sertraline 50mgseroquel 50 mg Dante Calculation Initial Dante Date Initial Exam Date Initial Exam Provider Initial Ultrasound Date Last Menstrual Period Date Ultra Sound Weeks Gestation 01/15/2025 07/22/2024 salvador [email or web address] 07/21/2024 04/10/2024 14 Eighteen To Twenty Week [...] Weight in lbs Pre/Post Dialysis Refused Weight 122.078177074335 BP Diastolic BP Location Tested BP Systolic [...] Type Weight in lbs Pre/Post Dialysis Refused 120.920644920904 BP Diastolic BP Location Tested BP Systolic [...] Type Weight in lbs Pre/Post Dialysis Refused 128.146362321525 BP Diastolic BP Location Tested BP Systolic [...] Type Weight in lbs Pre/Post Dialysis Refused 136.180599738212 BP Diastolic BP Location Tested BP Systolic [...] Type Weight in lbs Pre/Post Dialysis Refused 143.714563307753 BP Diastolic BP Location Tested BP Systolic [...] Weight in lbs Pre/Post Dialysis Refused Weight 144.42278522410 BP Diastolic BP Location Tested BP Systolic BP Type 67 101 Fetus Heart Rate Present Fetus Movement Comments Flowsheet Date 11/25/2024 [place] Score Blood Edema Fundus Height Fundus Units Glucose Ketones Leukocytes Nitrite Labor Signs Protein Cervic Dilation Cervic Effacement Cervic Station neg none Type Weight in lbs Pre/Post Dialysis Refused 144.300959331369 BP Diastolic BP Location Tested BP Systolic BP Type 67 101 Fetus Heart Rate Present Fetus Movement A Yes Comments Patient is having contractio ns, heartburn, and discharge. bpp 10 doing well +FM, rx protonix IOL 12/29 or 12/30, will schedule next visit, call for preadmit f/u one week Flowsheet Date 12/02/2024 [place] Score Blood Edema Fundus Height Fundus Units [...] Weight in lbs Pre/Post Dialysis Refused Weight 147.849945301481 BP Diastolic BP Location Tested BP Systolic BP Type 74 106 Fetus Heart Rate Present Fetus Movement Comments Flowsheet Date 12/02/2024 [place] Score Blood Edema Fundus Height Fundus Units Glucose Ketones Leukocytes Nitrite Labor Signs Protein Cervic Dilation Cervic Effacement Cervic Station neg none Type Weight in lbs Pre/Post Dialysis Refused 147.770925746435 BP Diastolic BP Location Tested BP Systolic [...] Weight in lbs Pre/Post Dialysis Refused Weight 148.403450282810 BP Diastolic BP Location Tested BP Systolic [...] Type Weight in lbs Pre/Post Dialysis Refused 148.609964571882 BP Diastolic BP Location Tested BP Systolic BP Type 80 L arm 114 sitting Fetus Heart Rate Present Fetus Movement A Yes Comments doing well BPP 10/10 +FM, re viewed education and precautions cervix almost 1, soft. GBS collected f/u one week Flowsheet Date 12/23/2024 [place] Score Blood Edema Fundus Height Fundus Units Glucose Ketones Leukocytes Nitrite Labor Signs Protein Cervic Dilation Cervic Effacement Cervic Station Type Weight in lbs Pre/Post Dialysis Refused BP Diastolic BP Location Tested BP Systolic BP Type Fetus Heart Rate Present Fetus Movement Comments Flowsheet Date 12/23/2024 [place] Score Blood Edema Fundus Height Fundus Units Glucose Ketones Leukocytes Nitrite Labor Signs Protein Cervic Dilation Cervic Effacement Cervic Station Type Weight in lbs Pre/Post Dialysis Refused BP Diastolic BP Location Tested BP Systolic BP Type Fetus Heart Rate Present Fetus Movement Comments Flowsheet Date 12/23/2024 [place] Score Blood Edema Fundus Height Fundus Units Glucose Ketones Leukocytes Nitrite Labor Signs Protein Cervic Dilation Cervic Effacement Cervic Station Type Weight in lbs Pre/Post Dialysis Refused 150.743467362162 BP Diastolic BP Location Tested BP Systolic BP Type 78 L arm 121 sitting Fetus Heart Rate Present Fetus Movement A Yes Comments +FM doing well bpp 10/10, IO L next week, education and precautions Menstrual History Last Menstrual Date Menses Monthly [...] Domestic Partner Domestic Partner Phone Father Name Farmer Vegetable Status 07/22/19 25 1 CLOSED Fetus Data First Name Last Name Admitted to NICU Weight (g) Sex Living Outcome Pediatric Complications Fetus ID Race Codes Race Delivery Type , Spontane ous [id number] Dante Calculation Initial Dante Date Initial Exam [...]
--- OUTSIDE RECORDS SUMMARY | 2024-12-29 05:13 | XMS_ITS | Clinical Summary ---
Author Organization [facility] Address [address] [place] [address] Phone Care Team Providers Care Truck Striker Name Role Phone Unavailable Primary Care Provider [...] COVID-19 VACCINE - EMERGENCY USE AUTHORIZATION, MRNA, [id number](PF) 30 MCG/0.3 ML IM SUSP 11/01/2020,10/10/2020 (VARIVAX)(12 MOS UP)VARICELL A VIRUS VACCINE (PF) 0.5 ML, SUB CUT 03/02/2001 HIB, Unspecified Formulation 05/21/2003, 05/23/1999,05/26/1998,1997,01/21/1998 Hepatitis B Vaccine 03/24/1998,01/21/1998,1997 Social History Tobacco Use Types Packs/Day Years Used Date Smoking Tobacco: Never Assessed Comments Unknown Sex and Gender Information Value Date Recorded Sex Assigned at Not on file Legal 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
--- OUTSIDE RECORDS SUMMARY | 2024-12-29 05:13 | XMS_ITS | Encounter Summary ---
Author Organization [facility] Address [address] [place] [address] Care Team Providers Care Fence Maker Name Role Phone Unavailable Primary Care Provider Unavailabl e Encounter Details Date Type Department Care Team (Late st Contact Info) Description 05/21/2003 Outpatient Historical [facility] [place] [address] [place] [address] James Pelaez Emeka, DO [address] [place] [address] Social History Tobacco Use Types Packs/Day Years Used Date Smoking Tobacco: Never Assessed Comments Unknown Sex and Gender Information Value Date Recorded Sex Assigned at Not on file Legal Sex Female 3:13 AM [employer] Gender Identity Not on file Sexual Orientation Not on file documented as of this encounter Plan of Treatment Not on file documented as of this encounter Procedures Procedure Name Priority Date/Time Associated Diagnosis Comments CHG POLIOVIRUS IPV VFC 3 12:00 AM [employer] CHG MMR VACCINE SQ VFC 3 12:00 AM [employer] CHG DTAP VACCINE <7 YO IM VFC 05/21/2003 12:00 AM [employer] documented in this encounter Visit Diagnoses Not on filedocumented in this encounter
--- NOTE | 2024-12-29 05:51 | LDADM ---
This patient, Celia Durbin, was admitted to Labor/Delivery/Recovery 103 on 12/29/24 at 05:06. Plans for labor, pain management and were discussed with patient. Patient/family oriented to hospital policies and general routines including ID bracelet, bed and alarms, visiting hours, pain management, procedures, bathroom and other care routines, personal items, smoking policy, room service/diet and guest tray routines, infant security routines, and visiting hours. Patient/Family are encouraged to report perceived risks to care and to ask questions if they do not understand what they are told or what they should do. See OBIX for further documentation.
[2024-12-29 05:54] LABS: Hematocrit 32.1 % (37.0-47.0); Hemoglobin 9.6 g/dL (12.0-15.0); Immature Granulocyte Percent A 0.8 % (0-0.5); Immature Platelet Fraction Pct 10.8 % (0.9-11.2); Lymphocytes Absolute Auto 3.20 K/mm3 (0.9-3.2); Mean Corpuscular HGB Conc 29.9 g/dl (32-36); Mean Corpuscular Hemoglobin 19.1 pg (26-34); Mean Corpuscular Volume 63.9 fl (80-100); Nucleated Red Blood Cells Absolute Auto 0.000 K/mm3 (0.0-0.012); Nucleated Red Blood Cells Perc 0.0 % (0.0-0.2); Platelet Count Result 211 k/mm3 (150-375); Red Blood Count 5.02 M/mm3 (4.2-5.4); White Blood Count 11.9 K/mm3 (4.5-10.0)
[2024-12-29 06:09] LABS: Alanine Aminotransferase 14 U/L (6-35); Albumin Level 3.5 g/dL (3.5-5.1); Alkaline Phosphatase 218 U/L (38-126); Anion Gap 7 mmol/L (4-12); Aspartate Amino Transferase 28 U/L (14-36); Bilirubin,Total 0.5 mg/dL (0.2-1.3); Blood Urea Nitrogen 6 mg/dL (7-17); Calcium 9.1 mg/dL (8.4-10.2); Carbon Dioxide 22 mmol/L (22-30); Chloride 105 mmol/L (98-107); Estimated CRCL calculation 91 ml/min; Estimated Glomerular Filt Rate > 60; Glucose 77 mg/dL (65-110); Potassium 3.7 mmol/L (3.4-5.0); Sodium 134 mmol/L (137-145); Total Protein 7.0 g/dL (6.3-8.2)
[2024-12-29 06:32] LABS: Burr Cells 1+; Hypochromasia 2+; Microcytosis 1+ (NORMAL); Schistocytes None Seen; Target Cells 1+
[2024-12-29 06:36] LABS: Syphilis IgG/IgM Antibody Non-Reactive (Nonreactive)
[2024-12-29] MEDS: LACTATED RINGERS 1,000 ML 125 ML IV CONT (07:00)
--- NOTE | 2024-12-29 10:24 | P.PNAN_ITS ---
Anes - Initial Pre Proc Eval Procedure: labor epidural Date/Time: 12/29/24 10:24 Surgeon: Diana Grullon CNM Pre Op Diagnosis: labor pain Pre Op Diagnosis: IOL Patient Data Age: 29 Gender: F Height: 1.62 m Weight: 68 kg Last Vital Signs Temp 36.9 C 12/29/24 05:33 Pulse 81 12/29/24 10:15 BP 108/70 12/29/24 10:15 Pulse Ox 98 12/29/24 10:22 O2 Del Method Room Air 12/29/24 05:51 Allergies Allergy/AdvReac Type Severity Reaction Status Date / Time adhesive tape Allergy Redness of Verified 12/29/24 05:48 Skin Home Medications ?Medication ?Instructions ?Recorded ?Confirmed ?Type sertraline 100 mg tablet 100 mg PO QAM 04/03/23 12/29/24 History buspirone 5 mg tablet 5 mg PO PRN PRN anxiety 12/22/24 12/29/24 History cephalexin 500 mg capsule 500 mg PO Q12H UTI 7 days #14 caps 12/22/24 12/29/24 Rx hydroxyzine HCl 50 mg tablet 50 mg PO .daily hs 12/22/24 12/29/24 History pantoprazole 40 mg tablet,delayed 40 mg PO .daily am 12/22/24 12/29/24 History release (Protonix) quetiapine 50 mg tablet (Seroquel) 50 mg PO HS 12/22/24 12/29/24 History Laboratory Tests 12/29/24 05:41 WBC 11.9 H K/mm3 (4.5-10.0) RBC 5.02 M/mm3 (4.2-5.4) Hgb 9.6 L g/dL (12.0-15.0) Hct 32.1 L % (37.0-47.0) MCV 63.9 L fl (80-100) MCH 19.1 L pg (26-34) MCHC 29.9 L g/dl (32-36) RDW 15.9 H % (11.5-14.5) Plt Count 211 k/mm3 (150-375) MPV TNP Immature Gran % (Auto) 0.8 H % (0-0.5) Neut % (Auto) 65.4 % (45.5-73.1) Lymph % (Auto) 26.9 % (18.3-44.2) [place]osa % (Auto) 5.8 % (2.6-8.5) Eos % (Auto) 0.8 % (0-4.4) Baso % (Auto) 0.3 % (0.2-1.2) Lymph # (Auto) 3.20 K/mm3 (0.9-3.2) Mariposa # (Auto) 0.7 H K/mm3 (0.1-0.6) Eos # (Auto) 0.1 K/mm3 (0-0.3) Baso # (Auto) 0.0 K/mm3 (0.0-0.1) Abs Immat Gran (auto) 0.09 H K/mm3 (0.00-0.031) Absolute Neuts (auto) 7.8 H K/mm3 (1.3-6.7) Absolute Nucleated RBC 0.000 K/mm3 (0.0-0.012) Band Neutrophils % Not Reportable Nucleated RBC % 0.0 % (0.0-0.2) Platelet Estimate Adequate (Adequate) % Immature Plt Fraction 10.8 % (0.9-11.2) Hypochromasia 2+ Microcytosis 1+ (NORMAL) Target Cells 1+ Wahoo Cells 1+ Schistocytes None seen Sodium 134 L mmol/L (137-145) Potassium 3.7 mmol/L (3.4-5.0) Chloride 105 mmol/L (98-107) Carbon Dioxide 22 mmol/L (22-30) Anion Gap 7 mmol/L (4-12) BUN 6 L mg/dL (7-17) Creatinine 0.68 L mg/dL (0.7-1.0) Estim Creat Clear Calc 91 ml/min Estimated GFR > 60 (59 - ) Glucose 77 mg/dL (65-110) Calcium 9.1 mg/dL (8.4-10.2) Total Bilirubin 0.5 mg/dL (0.2-1.3) AST 28 U/L (14-36) ALT 14 U/L (6-35) Alkaline Phosphatase 218 H U/L (38-126) Total Protein 7.0 g/dL (6.3-8.2) Albumin 3.5 g/dL (3.5-5.1) Syphilis IgG/IgM Ab Non-reactive (Nonreactive) Blood Type A Positive Antibody Screen Negative Patient hx anesthesia problems: none Family hx anesthesia problems: none Results Review: All pre-operative results and documents have been reviewed as part of the pre- operative evaluation. [facility] Past Medical History Medical History Alpha-thalassemia Anxiety and depression Eczema Gastritis IBS (irritable bowel syndrome) IUFD (intrauterine ) October 2022 38 week demise 7lb 5oz Lumbago Psoriasiform dermatitis Surgical History Surgical History No history of previous surgery Family History Family History Father Cerebrovascular accident Depression Hypertension Other Family history of arthritis Family history of mental disorder Social History Social History Years smoked: 1 Smoking status: Current some day smoker Tobacco type: e-cigarettes/vaping Smokeless tobacco user: other Second hand tobacco smoke exposure: No Alcohol intake: never Drinks per week: 4 Substance use: current Substance use type: marijuana Other substance usage details: DECREASING Last use: 07/03/2023 Do You Feel Safe in your Home?: Yes Lack of Transportation: No Lack of Food: Never True Current Housing: I Have Housing Concerned About Future Housing: No Difficulty Paying Gas/Electric Bills: No Difficulty Paying for Meds: No Currently Unemployed: No Education: Associate Degree Difficulty w/ Childcare or Family Care: No Gender identity (if verbalized by the patient): Female Spiritual care concerns: No Agree to blood products: Yes Anes - Eval Final PreProcedure Day of Procedure 12/29/24 10:24 Patient weight: obese ASA classification: II Anesthetic plan: proceed Anesthesia type and monitoring: regional epidural and standard monitoring Results Review: All pre-operative results and documents have been reviewed as part of the pre- operative evaluation. Informed Consent: The patient's anesthetic plan and its attendant risks and benefits were discussed with the patient/family/POA. Questions were solicited and answers provided to the satisfaction of the patient/family/POA.
[2024-12-29] MEDS: fentaNYL CITRATE INJ (*CRX) 100 MCG/2 ML VIAL 50 MCG IV PUSH ×2 (12:00→12:30)
[2024-12-29] MEDS: METOCLOPRAMIDE HCL INJ 10 MG/2 ML VIAL IV PUSH (12:01)
[2024-12-29] MEDS: OXYTOCIN 30 UNITS/NS 500 ML 30 UNITS/500 ML BAG IV CONT (13:30)
--- NOTE | 2024-12-29 15:06 | WPDOBADMIT ---
Obstetrics - Admit Note Admission Note: record reviewed. No pertinent additions to the history and/or any subsequent changes in the physical findings that are not consistent with the expected course of the were found. Additions to the history and/or subsequent changes in the physical findings follow. Admit for IOL, hx demise AROM
--- NOTE | 2024-12-29 15:07 | PM.OBPRVD ---
OB - Vaginal Delivery Note Procedure Delivery date: 12/29/24 Induction method: AROM, Per Misoprostol Protocol and Per Pitocin Protocol Delivery monitor: External FHT and External Uterine Route of delivery: Episiotomy description: None Laceration Description: Perineal - 1st Degree Delivery repair: vicryl Specimen: No Quantitative Blood Loss (ml): 100 Anesthesia type: Epidural Disposition: Floor Complications: No immediate complications Baby Date of : 12/29/24 Time of : 14:52 Gestational Age by Date: 37 gender: Female presentation: vertex position: Left Occiput Anterior Placenta delivery description: Spontaneous Cord Vessel Description: 3 Vessels, Clamped/Cut and Delayed Cord Clamping
[2024-12-29] MEDS: OXYTOCIN 30 UNITS/NS 500 ML 30 UNITS/500 ML BAG 125 UNITS IV CONT (15:30)
[2024-12-29] MEDS: DOCUSATE SODIUM 100 MG CAPSULE PO (16:43)
[2024-12-29] MEDS: ACETAMINOPHEN 325 MG TABLET 650 MG PO (16:43)
[2024-12-29] MEDS: BENZOCAINE 20% AER SPR (*SP) 56 GM CAN 1 SPRAY TOPICAL (18:29)
[2024-12-29] MEDS: IBUPROFEN 600 MG TABLET PO (18:30)
[2024-12-29] MEDS: WITCH HAZEL 40 PADS 1 PAD TOPICAL (18:30)
[2024-12-30 03:54] LABS: Hematocrit 31.0 % (37.0-47.0); Hemoglobin 9.2 g/dL (12.0-15.0)
[2024-12-30 07:25] VITALS: BP 120/82; PULSE 87; RESP 16; TEMP 37.5; O2SAT 98
--- NOTE | 2024-12-30 07:57 | P.PNOB_ITS ---
OB - PN: Subj Subjective Date/time seen: 12/30/24 07:57 Interval history: pp day 1 doing well OB - PN: Obj Data Labs 12/30/24 03:17 12/29/24 05:41 Labs: Laboratory Results - last 24 hr 12/30/24 03:17 Hgb 9.2 L Hct 31.0 L OB - PN A/P Plan day: 1 Plan: routine care Time Spent With Patient Time: Total time spent is greater than 50% in coordination of care (as documented) at patient's floor/unit and/or counseling patient: Review of Systems 2 Review of Systems: All systems reviewed & are unremarkable except as noted in HPI and below Exam 2 Const: General: cooperative, healthy appearing and comfortable Chest: Chest palpation & inspection: normal inspection of the chest Resp: Effort & Inspection: normal respiratory effort
--- NOTE | 2024-12-30 07:57 | WPDANLDPN2 ---
Anes-Prog Note L&D Date/Time: 12/30/24 07:57 Comfortable throughout: labor and delivery Neuraxial method: epidural Epidural/Spinal procedure site: clean & non-tender Neuro status: Neuro function grossly intact. Cardiovascular status: normal Respiratory status: normal Airway patency: baseline Mental status: baseline Post-Op hydration status: normal Vital Signs: Last Vital Signs Temp 36.8 C 12/29/24 23:39 Pulse 84 12/29/24 23:39 Resp 18 12/29/24 23:39 BP 122/79 12/29/24 23:39 Pulse Ox 99 12/29/24 23:39 O2 Del Method Room Air 12/29/24 18:50 Pain score (VAS): 2 I/O: Intake & Output 12/29/24 12/29/24 12/30/24 15:59 23:59 07:59 Output Total 100 Balance -100 Post-procedural complaints: none Patient feedback: Patient satisfied with anesthetic care.
[2024-12-30] MEDS: MULTIVIT/MIN/PREN/FOL AC/IRON TABLET 1 TAB PO (08:08)
[2024-12-30] MEDS: IBUPROFEN 600 MG TABLET PO ×3 (08:09→21:57)
[2024-12-30] MEDS: DOCUSATE SODIUM 100 MG CAPSULE PO ×2 (08:09→16:20)
[2024-12-30] MEDS: ACETAMINOPHEN 325 MG TABLET 650 MG PO ×2 (08:10→16:20)
[2024-12-30] MEDS: PANTOPRAZOLE 40 MG TABLET PO (08:10)
--- NOTE | 2024-12-30 09:00 | PC.NURSE ---
Consulted with patient to assess needs related to . Discussed with mother her successes, concerns and any questions she has. We reviewed working with the , supporting breast, protecting her nipples with an optimal deep latch, good positioning, and good hand washing. Encouraged understanding the benefits of skin to skin, responding to feeding cues, frequencies of feeding 8-12 times in 24 hours (approximately 2-3 hours), duration of feedings, milk production, intake/output feeding sheet and signs of adequate intake encouraging swallowing at the breast. Reviewed positioning and alignment, supporting breast, off-centered (asymmetrical latch) and leading with the chin with big, open, wide gape. latched optimally to the [right] breast in [football] position. Education given to the mother of how to visualize the suckling (with good rocking jaw motion) swallows (dropping of the lower jaw) and how to listen for drinking at the breast (the ka sound). The infant was [able] to maintain latch without discomfort to mother. Nipple care reviewed with optimal latch, good positioning and using clean hands when touching her breast. Resources used to facilitate learning were used from the [visual handouts/ tool/mom and baby guide]. Mother voiced understanding of the education shared, to call for assistance if the does not latch or if there is discomfort with . Reported to the Primary RN.
[2024-12-30] MEDS: SERTRALINE HCL 50 MG TABLET 100 MG PO (11:54)
[2024-12-30 12:23] VITALS: BP 111/74; PULSE 93; RESP 18; TEMP 37; O2SAT 98
--- NOTE | 2024-12-30 14:12 | PC.NURSE ---
9642. Observed mother latching to the [left] breast in [football] position. Infant [was not] able to maintain an appropriate latch. Mother [declines] nipple pain/discomfort [throughout feeding]. Infant to sleepy at this time to latch and feed at the breast. Mom had 18cc of expressed breast milk. Attempted to get to latch after 5 cc of breastmilk given through bottle. Infant was unable to latch at the breast and feed. Encouraged mother to feed a little more expressed breastmilk from the bottle for this feeding session and watch for early feeding cues for her next feeding session. Reviewed using the blue feeding sheet to record time and duration of feeding. Mother voiced understanding of the education shared, to call for assistance if the does not latch or if there is discomfort with . name/number on communication board. Reported to the Primary RN.?
[2024-12-30 19:44] VITALS: BP 128/87; PULSE 89; RESP 16; TEMP 36.7; O2SAT 99
[2024-12-31 07:25] VITALS: BP 112/87; PULSE 92; RESP 16; TEMP 37.6; O2SAT 97
[2024-12-31] MEDS: IBUPROFEN 600 MG TABLET PO (08:10)
[2024-12-31] MEDS: PANTOPRAZOLE 40 MG TABLET PO (08:10)
[2024-12-31] MEDS: MULTIVIT/MIN/PREN/FOL AC/IRON TABLET 1 TAB PO (08:10)
--- NOTE | 2024-12-31 09:32 | PC.NURSE ---
Consulted with mother concerning needs and she shared her ability to independently latch infant optimally without pain. She is currently supplementing as well with pumped breast milk and/or formula. Mother is feeding appropriately for growth of infant and understands stimulating to eat if needed. Infant has had appropriate feedings in the last 24 hours meets the outcomes for weight, output, blood sugar and jaundice at this time. Reinforced understanding of milk production, transition of milk, signs of adequate intake, transition of stool, prevention/relief of engorgement, plugged ducts, mastitis, responsive watching for feeding cues, the different methods of stimulating infant to breastfeed 1-3 hours after the start of the last feeding, community resources, and when to call a provider using the resource of the feeding sheet along with the mom and baby guide. Mother voiced understanding of the information shared, is confident to continue effectively her at home, when to call for assistance, denies any additional assistance or education at this time. Reported to the Primary RN.
[2024-12-31] MEDS: SERTRALINE HCL 50 MG TABLET 100 MG PO (12:00)
--- NOTE | 2024-12-31 13:21 | P.PNOB_ITS ---
OB - PN: Subj Subjective Date/time seen: 12/31/24 13:21 Interval history: pp day 1 doing well Patient comments: no complaints, pain well controlled and tolerating diet OB - PN: Obj Data Labs 12/30/24 03:17 12/29/24 05:41 OB - PN A/P Plan day: 2 Plan: routine care and discharge home Time Spent With Patient Time: Total time spent is greater than 50% in coordination of care (as documented) at patient's floor/unit and/or counseling patient: Exam 2 Const: General: comfortable and no acute distress Resp: Effort & Inspection: normal respiratory effort Auscultation: no rales, no rhonchi and no wheezes Cardio: Rate: regular rate Heart sounds: no click, no murmurs and no rubs GI: GI Palp: Yes Soft to palpation and No Tenderness to palpation present (GI) Auscultation: normal bowel sounds Extrem: General: normal to inspection, no pedal edema and no calf tenderness
--- NOTE | 2024-12-31 13:21 | PM.OBDSVD ---
DS: Admitting Diagnosis Discharge Date 12/31/2024 Admitting Diagnosis Term DS: Discharge Diagnosis Discharge Diagnosis (1) Term delivered: Code(s): O80 - Encounter for full-term uncomplicated delivery Status: Acute OB - DS: Summary OB Procedures : None OB Procedures Intrapartum: Spontaneous Vag Delivery OB Procedures: : None Peripartum Data Laceration Description: Perineal - 1st Degree Episiotomy description: None Time Spent with Patient Time attestation: Total time spent providing and/or coordinating discharge services: Discharge Plan Discharge Discharging Clinician: Douglas Rosario Patient Disposition: Home Activity: pelvic rest Diet: regular Patient Instructions: Antibiotic Form Patient Language: Slovenian Stand Alone Forms: General Discharge Information Follow-up/Referrals: Douglas Rosario MD [Physician] - Discharge Medications: Continued sertraline 100 mg tablet 100 mg PO QAM pantoprazole [Protonix] 40 mg tablet,delayed release (DR/EC) 40 mg PO .daily am quetiapine [Seroquel] 50 mg tablet 50 mg PO HS hydroxyzine HCl 50 mg tablet 50 mg PO .daily hs buspirone 5 mg tablet 5 mg PO PRN PRN (Reason: anxiety) cephalexin 500 mg capsule 500 mg PO Q12H 7 Days Qty: 14 0RF Date of admission: 12/29/24 05:06 Primary Care Provider: Roman*Flower Varela Admitting Provider: Douglas Rosario Attending physician on admission: Diana Grullon Condition: Stable
[2025-01-02 11:23] VITALS: BP 121/89; PULSE 89; RESP 18; TEMP 37.1; O2SAT 100
== END 2024-12-31 14:25 | disposition home or self-care (01) | DRG 560 ==
LOC: ANHOB2 12-31 13:23 → ANHLDR 01-01 09:55 → ANHOB2 01-01 09:55
PROVIDERS: Advanced Practice Midwife; Admitting Provider Obstetrics & Gynecology; PCP Physician Assistant; Visit Provider Obstetrics & Gynecology
DX: O70.0 First degree perineal laceration during delivery (principal); Z37.0 Single live birth; Z3A.37 37 weeks gestation of pregnancy
CPT/HCPCS: 36415; 80053; 85014; 85018; 85025; 85055; 86593; 86850; 86900; 86901; A9270; J2590; J2765; J2795; J3010; J7120

== ENCOUNTER 2025-01-24 18:10 | Emergency (ER) | payer OTHER, SELFPAY ==
[2025-01-24 18:21] VITALS: BP 98/69; PULSE 104; RESP 20; TEMP 37.2; O2SAT 98
[2025-01-24 18:39] LABS: EDSTREPNEGPOS1 Negative (Negative)
[2025-01-24 18:46] LABS: EDCOVIDSCREEN Negative (Negative); EDINFLUASCREEN Negative (Negative); EDINFLUBSCREEN Negative (Negative)
--- NOTE | 2025-01-24 19:07 | ED.URI ---
HPI - URI/Sore Throat General Chief Complaint: Upper Respiratory Infection Stated Complaint: sore throat Time Seen by Provider: 01/24/25 18:45 Source: patient and RN notes reviewed Mode of arrival: ambulatory Limitations: no limitations History of Present Illness HPI Narrative: 29-year-old female presents Express Care complaining of sore throat for proximally 3 days. Patient denies any other upper respiratory symptoms, cough, fevers, aches, chills, nausea vomiting, diarrhea, dizziness, lightheadedness, chest pain, shortness of breath, difficulty breathing, abdominal pain, or any other symptoms. Patient has been taking Tylenol for her pain. Patient also took a dose a left over amoxicillin this morning and said that it helped a little bit but her symptoms are worsening again. Related Data Home Medications ?Medication ?Instructions ?Recorded ?Confirmed ?Last Taken ?Type sertraline 100 mg tablet 100 mg PO QAM 04/03/23 12/29/24 12/28/24 12:00 History buspirone 5 mg tablet 5 mg PO PRN PRN anxiety 12/22/24 12/29/24 Unknown History hydroxyzine HCl 50 mg tablet 50 mg PO .daily hs 12/22/24 12/29/24 12/28/24 History pantoprazole 40 mg tablet,delayed 40 mg PO .daily am 12/22/24 12/29/24 12/28/24 12:00 History release (Protonix) quetiapine 50 mg tablet (Seroquel) 50 mg PO HS 12/22/24 12/29/24 12/28/24 History Allergies Allergy/AdvReac Type Severity Reaction Status Date / Time adhesive tape Allergy Redness of Verified 01/24/25 18:11 Skin Review of Systems Review of Systems: CONSTITUTIONAL: Denies fever, chills, or sweats. EYES: Denies visual changes, redness, or discharge. ENT: Denies rhinorrhea, congestion, or otalgia. Positive for sore throat CARDIOVASCULAR: Denies chest pain, palpitations, or edema. RESPIRATORY: Denies cough or dyspnea. GASTROINTESTINAL: Denies abdominal pain, nausea, vomiting, or diarrhea. GENITOURINARY: Denies dysuria or hematuria. SKIN: Denies rash or itching. MUSCULOSKELETAL: Denies back pain, joint pain, or myalgia. NEUROLOGIC: Denies headache, numbness, or weakness. PSYCHIATRIC: Denies anxiety or depression. All other systems reviewed are negative, except as documented in HPI. [facility] Past Medical History Medical History Alpha-thalassemia Anxiety and depression Eczema Gastritis IBS (irritable bowel syndrome) IUFD (intrauterine ) October 2022 38 week demise 7lb 5oz Lumbago Psoriasiform dermatitis Surgical History Surgical History No history of previous surgery Family History Family History Father Cerebrovascular accident Depression Hypertension Other Family history of arthritis Family history of mental disorder Social History Social History Years smoked: 1 Smoking status: Current some day smoker Tobacco type: e-cigarettes/vaping Smokeless tobacco user: other Second hand tobacco smoke exposure: No Alcohol intake: never Drinks per week: 4 Substance use: current Substance use type: marijuana Other substance usage details: DECREASING Last use: 07/03/2023 Do You Feel Safe in your Home?: Yes Lack of Transportation: No Lack of Food: Never True Current Housing: I Have Housing Concerned About Future Housing: No Difficulty Paying Gas/Electric Bills: No Difficulty Paying for Meds: No Currently Unemployed: No Education: Associate Degree Difficulty w/ Childcare or Family Care: No Gender identity (if verbalized by the patient): Female Spiritual care concerns: No Agree to blood products: Yes Comments At the time of my signature, I reviewed and agree with the nursing past medical, surgical, social, and family history. There is no relevant family history pertinent to the patient complaint. Exam Narrative: GENERAL: This is a well-nourished, well-developed adult, in no apparent distress. They are non ill-appearing, nontoxic appearing. HEAD: normocephalic, atraumatic. EYES: Sclera clear/white. Conjunctiva normal. Vision is grossly intact. Extraocular movements intact EARS: External ears normal, auditory canals clear and without drainage, TMs normal without perforation. Hearing grossly intact. NOSE: External nose normal with no obvious nasal discharge, nasal turbinates without redness, no rhinorrhea. THROAT: Mucous membranes moist, posterior pharynx erythematous, no exudate. Uvula midline. NECK: Neck supple, non-tender without lymphadenopathy, masses or thyromegaly. CARDIOVASCULAR: Regular rate and rhythm without murmurs, gallops, or rubs. Peripheral pulse strong and palpable. RESPIRATORY: Clear to auscultation. Breath sounds equal bilaterally. No wheezes, rales, or rhonchi. SKIN: warm, Dry, intact with no suspicious lesions or rash, good texture and turgor. NEURO: awake, alert, and oriented to person, place and time. There were no obvious focal neurologic abnormalities. EXTREMITIES: No joint tenderness, effusion, or edema noted. Course Course Emergency Course: Portions of this record may have been created with voice recognition software Level of Care: Express Care Visit Vital Signs Vital signs: Vital Signs Temperature 99.0 F 01/24/25 18:21 Pulse Rate 104 H 01/24/25 18:21 Respiratory Rate 20 01/24/25 18:21 Blood Pressure 98/69 L 01/24/25 18:21 Pulse Oximetry 98 01/24/25 18:21 Oxygen Delivery Room Air 01/24/25 18:21 Temperature 99.0 F 01/24/25 18:21 Pulse Rate 104 H 01/24/25 18:21 Respiratory Rate 20 01/24/25 18:21 Blood Pressure 98/69 L 01/24/25 18:21 Pulse Oximetry 98 01/24/25 18:21 Oxygen Delivery Room Air 01/24/25 18:21 Reviewed MDM - URI/Sore Throat MDM Narrative Medical decision making narrative: Rapid strep negative. Throat culture pending. COVID and flu were negative. Patient likely has viral pharyngitis. Discussed physical exam findings. Advised supportive measures and signs/symptoms to go to the ER. Pt is appropriate for outpt treatment and f/u. Differential Diagnosis Differential diagnosis: Likely upper respiratory infection, sinusitis, viral infection and pharyngitis Lab Data Attestation: I reviewed the patient's lab results. Labs: Lab Results 01/24/25 01/24/25 Range/Units 18:25 18:37 POC Influenza A Ag Negative (Negative) POC Influenza B Ag Negative (Negative) POC SARS CoV-2 Ag Negative (Negative) POC Grp A Strep Screen Negative (Negative) Critical Care Time Critical Care Time Critical Care Time: No Discharge Plan Discharge Clinical Impression: Acute viral pharyngitis Patient Disposition: Home Condition: Stable Instructions: Pharyngitis (ED) Additional Instructions: Your rapid strep swab was negative today at [facility]. You will be notified in a few days if the culture comes back positive for strep, and appropriate antibiotics will be called in for you at that time. Your symptoms are likely due to a viral illness, which is not treated with antibiotics. Viral symptoms can be present for up to 10-14 days. Take Tylenol for fever or pain. Follow instructions on the bottle. Rest and stay hydrated. Follow up with your PCP in 3-5 days if symptoms are not improving. Go to the ER immediately if you develop difficulty breathing, nausea, vomiting, dizziness, lightheadedness, difficulty swallowing, or any serious concerns. Patient Language: Portuguese Prescriptions: No Action sertraline 100 mg tablet 100 mg PO QAM pantoprazole [Protonix] 40 mg tablet,delayed release (DR/EC) 40 mg PO .daily am quetiapine [Seroquel] 50 mg tablet 50 mg PO HS hydroxyzine HCl 50 mg tablet 50 mg PO .daily hs buspirone 5 mg tablet 5 mg PO PRN PRN (Reason: anxiety) Follow-up/Referrals: Rhea,ROSLYN Maurer [Primary Care Provider] - Time of Disposition: 18:58
== END 2025-01-24 19:03 | disposition home or self-care (01) ==
PROVIDERS: PCP Physician Assistant
DX: J02.8 Acute pharyngitis due to other specified organisms (principal); Z20.822 Contact with and (suspected) exposure to COVID-19; F17.290 Nicotine dependence, other tobacco product, uncomplicated; D56.0 Alpha thalassemia; F41.9 Anxiety disorder, unspecified; F32.A Depression, unspecified
CPT/HCPCS: 87081; 87426; 87804; 87880; 99213; G0463

== ENCOUNTER 2025-01-27 14:35 | Emergency (ER) | payer OTHER, SELFPAY ==
[2025-01-27 14:40] VITALS: BP 96/60; PULSE 113; RESP 20; TEMP 37.3; O2SAT 99
--- NOTE | 2025-01-27 14:48 | ED_ITS ---
HPI - General Adult General Chief complaint: Unspecified Stated complaint: sore throat Time Seen by Provider: 01/27/25 14:49 Source: patient Mode of arrival: ambulatory Limitations: no limitations History of Present Illness HPI narrative: 29-year-old female presents with concern for yeast infection. She reports she has started having a sore throat a few days ago, she was seen in tested for strep which was negative. She reports since then she has developed white patches on her time. She reports she is also having vaginal itching. She reports she tried 3 day Monistat without relief vaginal itching. She denies fever, body aches, chills, sweats. Denies cough. Reports mild runny nose which she attributes to allergies. She is breast feeding. She gave about 1 month ago. She denies any itching or rash around her nipples. complaint: Yeast infection Related Data Home Medications ?Medication ?Instructions ?Recorded ?Confirmed ?Last Taken ?Type sertraline 100 mg tablet 100 mg PO QAM 04/03/23 12/29/24 12/28/24 12:00 History buspirone 5 mg tablet 5 mg PO PRN PRN anxiety 12/22/24 12/29/24 Unknown History hydroxyzine HCl 50 mg tablet 50 mg PO .daily hs 12/22/24 01/27/25 12/28/24 History pantoprazole 40 mg tablet,delayed 40 mg PO .daily am 12/22/24 12/29/24 12/28/24 12:00 History release (Protonix) quetiapine 50 mg tablet (Seroquel) 50 mg PO HS 12/22/24 12/29/24 12/28/24 History Allergies Allergy/AdvReac Type Severity Reaction Status Date / Time adhesive tape Allergy Redness of Verified 01/27/25 14:47 Skin Review of Systems Review of Systems: CONSTITUTIONAL: Denies malaise, chills, sweats, or fever. ENT: Denies rhinorrhea. Denies congestion, sinus pain, otalgia. Reports sore and itchy throat, white patches on her tongue. CARDIOVASCULAR: Denies chest pain, palpitations, or edema. RESPIRATORY: Denies cough or dyspnea. SKIN: Reports vaginal itching and redness All systems reviewed & are unremarkable except as noted in HPI and below PMFSH Past Medical History Medical History Alpha-thalassemia Anxiety and depression Eczema Gastritis IBS (irritable bowel syndrome) IUFD (intrauterine ) October 2022 38 week demise 7lb 5oz Lumbago Psoriasiform dermatitis Surgical History Surgical History No history of previous surgery Family History Family History Father Cerebrovascular accident Depression Hypertension Other Family history of arthritis Family history of mental disorder Social History Social History Years smoked: 1 Smoking status: Current some day smoker Tobacco type: e-cigarettes/vaping Smokeless tobacco user: other Second hand tobacco smoke exposure: No Alcohol intake: never Drinks per week: 4 Substance use: current Substance use type: marijuana Other substance usage details: DECREASING Last use: 07/03/2023 Do You Feel Safe in your Home?: Yes Lack of Transportation: No Lack of Food: Never True Current Housing: I Have Housing Concerned About Future Housing: No Difficulty Paying Gas/Electric Bills: No Difficulty Paying for Meds: No Currently Unemployed: No Education: Associate Degree Difficulty w/ Childcare or Family Care: No Gender identity (if verbalized by the patient): Female Spiritual care concerns: No Agree to blood products: Yes Comments At time of signature, agree with nursing past medical, surgical, social and f amily history. There is no relevant family history pertinent to the presenting complaint Exam Narrative: GENERAL: Well-appearing, well-nourished, and in no acute distress. HEAD: Normocephalic, atraumatic. EYES: PERRLA, sclera clear ENT: Nares clear. Mucous membranes moist. TM pearly wild with sharp light reflex bilaterally; no tragal tenderness. Oropharynx without erythema or lesions. White patches noted on the tongue. Tonsils not enlarged and without exudate. NECK: Supple. CHEST: No respiratory distress. Speaks in full sentences. HEART: Regular rate and rhythm. No murmur heard. Normal peripheral pulses. SKIN: Warm, dry, no visible rash. NEURO: Alert and oriented x3. PSYCH: Normal mood and affect Course Course Emergency Course: Patient is aware of diagnosis, understands and agrees to treatment plan. Anticipatory guidance given. Patient agrees to follow-up as directed and is aware of reasons to seek care at the emergency department. Portions of this record may have been created with voice recognition software Level of Care: [facility] Visit Vital Signs Vital signs: Vital Signs Temperature 99.1 F 01/27/25 14:40 Pulse Rate 113 H 01/27/25 14:40 Respiratory Rate 20 01/27/25 14:40 Blood Pressure 96/60 L 01/27/25 14:40 Pulse Oximetry 99 01/27/25 14:40 Oxygen Delivery Autopap 01/27/25 14:40 Temperature 99.1 F 01/27/25 14:40 Pulse Rate 113 H 01/27/25 14:40 Respiratory Rate 20 01/27/25 14:40 Blood Pressure 96/60 L 01/27/25 14:40 Pulse Oximetry 99 01/27/25 14:40 Oxygen Delivery Autopap 01/27/25 14:40 Reviewed. Medical Decision Making MDM Narrative Medical decision making narrative: The patient was evaluated by myself in the [facility]. History is obtained from patient who is an independent historian and physical exam was performed.? Available medical records were reviewed at this time. ? Exam findings show no acute concerns or changes; patient is non-toxic appearing and is in no distress. Patient is appropriate for outpatient treatment and follow-up. ? I have evaluated and discussed social determinants of health with the patient that could potentially impact subsequent diagnosis and treatment plans. ? Differential diagnosis and treatment plan were discussed with the patient. Patient agrees with discussion and after shared medical decision making agrees with plan of care. All questions were answered to the patient's satisfaction. Vital Signs Vital Signs: Vital Signs Temperature 99.1 F 01/27/25 14:40 Pulse Rate 113 H 01/27/25 14:40 Respiratory Rate 20 01/27/25 14:40 Blood Pressure 96/60 L 01/27/25 14:40 Pulse Oximetry 99 01/27/25 14:40 Oxygen Delivery Autopap 01/27/25 14:40 Temperature 99.1 F 01/27/25 14:40 Pulse Rate 113 H 01/27/25 14:40 Respiratory Rate 20 01/27/25 14:40 Blood Pressure 96/60 L 01/27/25 14:40 Pulse Oximetry 99 01/27/25 14:40 Oxygen Delivery Autopap 01/27/25 14:40 Critical Care Time Critical Care Time Critical Care Time: No Discharge Plan Discharge Clinical Impression: Oral yeast infection, Vaginal yeast infection Patient Disposition: Home Condition: Stable Instructions: Oral Candidiasis (ED), Yeast Infection (ED) Additional Instructions: 1) Please follow-up with your primary care doctor in the next 1-2 days. 2) If you have any urgent concerns please go to the ER. 3) Please take medications as prescribed, use 7 day Monistat (fluconazole interacts with seroquel), and continue taking your home medications as usual. 4) Please read and follow information included in discharge instructions. Patient Language: Greek Prescriptions: New nystatin 100,000 unit/mL suspension 5 ml PO QID 7 Days Qty: 140 0RF Rx Instructions: swish and swallow No Action sertraline 100 mg tablet 100 mg PO QAM pantoprazole [Protonix] 40 mg tablet,delayed release (DR/EC) 40 mg PO .daily am quetiapine [Seroquel] 50 mg tablet 50 mg PO HS hydroxyzine HCl 50 mg tablet 50 mg PO .daily hs buspirone 5 mg tablet 5 mg PO PRN PRN (Reason: anxiety) Follow-up/Referrals: Rhea,ROSLYN Maurer [Primary Care Provider] - Time of Disposition: 14:58
== END 2025-01-27 15:05 | disposition home or self-care (01) ==
PROVIDERS: Emergency Provider Nurse Practitioner; PCP Physician Assistant
DX: B37.0 Candidal stomatitis (principal); B37.31 Acute candidiasis of vulva and vagina; D56.1 Beta thalassemia; F41.9 Anxiety disorder, unspecified; F32.A Depression, unspecified
CPT/HCPCS: 99213; G0463